=== PATIENT | male | born 1940 | race Caucasian/White ===

== ENCOUNTER 2017-10-05 09:43 | Emergency (ER) | payer MEDICARE, OTHER ==
[2017-10-05] MEDS ORDERED: Lidocaine 1% (PF) 30 ML VIAL ONE (11:52)
--- NOTE | 2017-10-05 12:12 | CT ---
CT CERVICAL SPINE PERFORMED WITHOUT CONTRAST ENHANCEMENT: Date: 10/05/17 HISTORY: Patient had a fall with neck pain. FINDINGS: The vertebral bodies are normal in height. There is marked disc narrowing present. 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 There is marked disc narrowing at C4-5 . There are degenerative facet changes present. There is no central canal stenosis noted. There is no CT evidence for fracture. Lung apices show scarring. Carotid bulb calcifications are noted. IMPRESSION: No CT evidence of fracture of the cervical spine. POS: [facility]
[2017-10-05] MEDS ORDERED: Amoxicillin/Potassium Clav 875 MG TAB ONE (12:47)
[2017-10-05] MEDS ORDERED: Acetaminophen 500 MG TAB ONE (12:47)
[2017-10-05] MEDS ORDERED: Adacel (T-DAP) 0.5 ML VIAL ONE (12:47)
[2017-10-05] MEDS ORDERED: traMADol HCl 50 MG TAB ONE (13:11)
[2017-10-05] MEDS ORDERED: Gabapentin 300 MG CAP PO SCH (13:30)
[2017-10-05] MEDS ORDERED: Bacitracin Zinc 1 Packet ONE (13:47)
== END 2017-10-05 14:31 | disposition home or self-care (01) ==
LOC: ERS 09:43
DX: S61.412A Laceration without foreign body of left hand, initial encounter (principal); S16.1XXA Strain of muscle, fascia and tendon at neck level, initial encounter; I10 Essential (primary) hypertension; F32.9 Major depressive disorder, single episode, unspecified; F17.290 Nicotine dependence, other tobacco product, uncomplicated; Z23 Encounter for immunization; W22.8XXA Striking against or struck by other objects, initial encounter
CPT/HCPCS: 12004; 72125; 90471; 90715; J2001

== ENCOUNTER 2018-07-02 16:34 | Observation (INO) | payer MEDICARE, OTHER ==
[~2018-07-02 16:34] MED LIST: ISOVUE-370 76%-LOCM 1 ML ONE
[2018-07-02 17:04] LABS: #Basophils 0.1 thou/uL (0.0-0.2); #Eosinphils 0.2 thou/uL (0.0-0.7); #Monocytes 0.6 thou/uL (0.11-0.59); #Neutrophils 3.9 thou/uL (1.40-6.50); %Basophils 1.3 % (0.0-1.0); %Eosinophils 3.4 % (0.0-10.0); %Lymphocytes 29.8 % (21.0-51.0); %Monocytes 8.2 % (0.0-10.0); %Neutrophils 57.3 % (42.0-75.0); Hemoglobin 15.3 g/dL (14.0-18.0); Mean Corpuscular HGB CONC 33.5 g/dL (32.0-36.0); Mean Corpuscular Hemoglobin 33.7 pg (27.0-31.0); Mean Platelet Volume 6.6 fL (7.4-10.4); Platelet Count 239 thou/uL (130-400); RBC Distribution Width 12.6 % (11.5-14.5); Red Blood Cell (RBC) Count 4.52 mill/uL (4.70-6.10); White Blood Cell (WBC) Count 6.8 thou/uL (4.8-10.8)
[2018-07-02] MEDS ORDERED: Acetaminophen 500 MG TAB ONE (17:06)
--- NOTE | 2018-07-02 17:17 | RAD ---
PORTABLE AP CHEST X-RAY 07/02/18 HISTORY: Shortness of breath. COMPARISON: 03/28/16. FINDINGS: The cardiac silhouette and pulmonary vasculature are within normal limits for the portable technique of the study. There are linear densities in the mid lung zones bilaterally which may be related to mi ld scarring and/or atelectasis. Remote right sided rib fractures are again seen. Vascular calcificati ons are seen in the thoracic aorta. Degenerative changes again noted in the spine. IMPRESSION: 1. Linear scar versus atelectasis in the mid lung zones bilaterally. There is otherwise no acute cardiopulmonary process. 2. Remote right sided rib fractures. POS: [facility]
[2018-07-02 17:28] LABS: ALT (SGPT) 13 U/L (8-55); AST (SGOT) 21 U/L (5-34); Albumin 3.6 g/dL (3.4-4.8); Alkaline Phosphatase 79 U/L (40-150); Anion Gap 13 mmol/L (10-20); BUN (Urea Nitrogen) 9 mg/dL (8.4-25.7); Bilirubin, Total 0.7 mg/dL (0.2-1.2); Calc. Creatinine Clearance 0 mL/min (70-130); Calcium 8.2 mg/dL (7.8-10.44); Carbon Dioxide 26 mmol/L (23-31); Chloride 107 mmol/L (98-107); Estimated GFR-MDRD 87; Globulin 2.7 g/dL (2.4-3.5); Glucose 122 mg/dL (83-110); Potassium 4.3 mmol/L (3.5-5.1); Protein, Total 6.3 g/dL (5.8-8.1); Sodium 142 mmol/L (136-145)
[2018-07-02] MEDS ORDERED: Ondansetron PF 4 MG/2 ML Vial ONE (18:32)
[2018-07-02] MEDS ORDERED: Ketorolac Tromethamine 30 MG/ML VIAL ONE (19:17)
--- NOTE | 2018-07-02 19:51 | CT ---
CT ANGIOGRAM THORAX WITH IV CONTRAST AND 3D RECONSTRUCTIONS: 07/02/18 HISTORY: Shortness of breath and chest pain. Chest tightness. Elevated blood pressure. COMPARISON: None available. FINDINGS: No filling defects are seen in the pulmonary arteries to suggest a pulmonary embolus. Atherosclerotic calcifications and plaque are seen within the thoracic aorta. There is no evidence of a thoracic aor tic dissection or aneurysm seen. There are small bilateral pleural effusions and associated atelectasis. Calcified biapical pleural an d parenchymal scarring is present. This was also seen on prior CT cervical spine on 10/05/17. There is partially calcified pleural thickening seen along the region of the minor fissure on the right. Ther e is also minimal pleural thickening along the major fissures bilaterally. No discrete noncalcified p ulmonary nodule or mass is identified. No enlarged lymph nodes are seen by CT size criteria. The hear t is mildly enlarged. A few subcentimeter too small to characterize hypodense lesions are seen in the left hepatic lobe sta ble from CT abdomen in 2015. Remainder of the upper abdomen demonstrates a normal CT appearance for arterial phase of imaging. Degenerative changes are noted in the thoracic spine. Remote right sided rib fractures are seen. IMPRESSION: 1. No CT evidence of a pulmonary embolus. 2. Atherosclerotic vascular disease involving the coronary arteries as well as the thoracic and visualized upper abdominal aorta. 3. Small bilateral pleural effusions and atelectasis. 4. Mild gynecomastia. POS: [facility]
[2018-07-02 20:18] LABS: Troponin I 0.014 ng/mL (< 0.028)
[2018-07-02] MEDS ORDERED: Senokot S 8.6-50 MG TAB PO PRN (20:47)
[2018-07-02 21:32] VITALS: BMI 27.6
[2018-07-02] MEDS: HYDROcodone/Acetaminophen 10/325 mg Tablet PO PRN (21:51)
[2018-07-02] MEDS: hydrALAZINE 20 MG/ML VIAL SLOW IVP PRN (21:52)
[2018-07-02] MEDS ORDERED: Prevnar 13-Val Conj/PF 0.5 ML SYRINGE IM ONE (22:00)
[2018-07-03] MEDS: cloNIDine 0.1 MG TAB PO PRN ×2 (00:44→08:29)
[2018-07-03] MEDS: ALPRAZolam 0.5 MG TAB PO PRN ×2 (00:44→16:32)
--- NOTE | 2018-07-03 02:22 | HP ---
PRIMARY CARE PHYSICIAN: Dr. Carey. CHIEF COMPLAINT: Shortness of breath with abrupt onset this morning, he reports when he was getting up from bed. The patient is a smoker. Initially, EMS reports that his p.o. saturations were 87% on room air. He was given a DuoNeb and they went up to 96%. The patient reports that he feels better. The patient denied any current shortness of breath when examined for admission, saturating 96% on room air. The patient with a pertinent past medical history of hypertension and a smoker. He does report some chronic neck pain. The patient and family report that he drinks about 2-3 beers per night, takes one hydrocodone at night for his neck pain. Denies any significant cardiac stroke risk factors or history. Denies any history of COPD or CHF. Did report some chest tightness. Denied any specific chest pain or palpitations. Based on symptoms and history, the patient will be admitted to the observation unit for further risk stratification. PAST MEDICAL HISTORY: Hypertension, chronic neck pain. 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 PSYCHIATRIC HISTORY: Depression. SOCIAL HISTORY: The patient drinks every day, 2-3 beers per day. He is a smoker, smokes cigars daily, 2-3 per day, was a cigarette smoker for the last 30 years. REVIEW OF SYSTEMS: CONSTITUTIONAL: Denies fever or chills. EYES: Denies eye changes or eye pain. ENT: Denies rhinorrhea or sore throat. CARDIOVASCULAR: Reports chest pressure earlier. Denies palpitations. RESPIRATORY: Denies cough. Does report shortness of breath. Reports chest tightness. GASTROINTESTINAL: Denies any abdominal pain, nausea, vomiting, diarrhea, or constipation. MUSCULOSKELETAL: Reports chronic neck pain. SKIN: Reports rash to trunk, legs that itches periodically. Reports he has had the rash for the last eight months. ENDOCRINE: Does report a history of hypothyroidism. Denies any change in symptoms. HEMO/LYMPHATIC: Negative review of systems. PSYCH: Does have a history of depression. Denies any SI or HI. Notes all other review of systems are negative unless mentioned in the HPI. PHYSICAL EXAMINATION: VITAL SIGNS: Blood pressure 187/94, pulse is 72, respirations are 20, temperature is 98.7, and O2 saturations are 96% on room air. CONSTITUTIONAL: The patient appears nontoxic, is in mild pain distress from his neck. He is alert and oriented to person, place, and time. HEENT: Head is atraumatic and normocephalic. Eyes, eyelids are normal to inspection. Pupils are equally round and reactive to light. Extraocular muscles are intact. ENT, mouth exam is normal. Mucous membranes are moist. NECK: Normal range of motion. Trachea is midline. RESPIRATORY/CHEST: Chest expansion is equal. Breath sounds are clear. CARDIOVASCULAR: Regular heart rate and rhythm. Heart sounds are normal. ABDOMEN: Nontender on palpation. Bowel sounds are heard x4. BACK: Normal inspection. No CVA tenderness. EXTREMITIES: Upper extremities, normal range of motion. Inspection is normal. Radial pulses are equal bilaterally. Lower extremities, normal inspection. Normal range of motion. Pedal pulses are equal bilaterally. No edema is noted. NEUROLOGIC: He is alert and oriented to person, place, and time. Speech is normal. No focal motor or sensory deficits are noted. SKIN: Some macular rash to trunk and legs. Blanches. LYMPHATIC: Normal. PSYCHIATRIC: The patient is oriented to person, place, and time. Normal affect. RADIOLOGY INTERPRETATION: Chest 1. X-ray, linear scar versus atelectasis in mid lung zones bilaterally, otherwise no acute cardiopulmonary process. 2. Remote right-sided rib fractures. CTA, no significant findings with PE. Significant arthrosclerotic CV disease. Small bilateral pleural effusions and atelectasis. Pleural scarring. EKG, sinus rhythm, beats per minute 68, no ectopics, possible inferior infarct, age indeterminate, minimal voltage criteria for LVH. PERTINENT LABORATORY DATA: White blood cell count is 6.8, hemoglobin 15.3, hematocrit 45.6, platelets 239. Sodium is 142, potassium 4.3, chloride 107, carbon dioxide 26, gap is 13, BUN is 9, creatinine 0.85, estimated GFR is 87, glucose 122, calcium 8.2. Liver enzymes are unremarkable. Ammonia is 31. Troponin x2 are undetectable. HOME MEDICATIONS: Include; 1. Celexa 40 mg p.o. daily. 2. Hydrocodone 10 mg/500 Tylenol 1 tab p.o. q.6 hours as needed. 3. Levothyroxine 50 mcg p.o. daily. 4. Metoprolol 25 mg p.o. b.i.d. ALLERGIES: TRAMADOL. ASSESSMENT AND PLAN: 1. Chest pressure with shortness of breath. We will trend troponins x3. We will order a stress test in the morning to help us risk stratify. We will check lipids. We will give the patient aspirin daily. We will add DuoNeb as needed p.r.n. 2. Hypertension. We will trend. We will continue home medications. We will add p.r.n. hydralazine as needed. 3. Depression. We will continue home medications. 4. Hypothyroidism. We will continue home medications. We will obtain TSH, free T3, T4. 5. Daily alcohol use. We will add p.r.n. Ativan as needed for potential withdrawal. 6. We will add deep venous thrombosis and gastrointestinal prophylaxis. 7. Hospital course will be dependent on clinical findings. Job ID: [id number]
[2018-07-03] MEDS: hydrALAZINE 20 MG/ML VIAL SLOW IVP PRN ×2 (02:24→12:51)
[2018-07-03 05:12] LABS: #Basophils 0.1 thou/uL (0.0-0.2); #Eosinphils 0.3 thou/uL (0.0-0.7); #Lymphocytes 2.3 thou/uL (1.20-3.40); #Monocytes 0.7 thou/uL (0.11-0.59); #Neutrophils 4.5 thou/uL (1.40-6.50); %Basophils 1.5 % (0.0-1.0); %Eosinophils 3.2 % (0.0-10.0); %Lymphocytes 29.5 % (21.0-51.0); %Monocytes 9.3 % (0.0-10.0); %Neutrophils 56.5 % (42.0-75.0); Hemoglobin 14.6 g/dL (14.0-18.0); Mean Corpuscular HGB CONC 32.6 g/dL (32.0-36.0); Mean Corpuscular Hemoglobin 33.1 pg (27.0-31.0); Mean Platelet Volume 6.9 fL (7.4-10.4); Platelet Count 211 thou/uL (130-400); RBC Distribution Width 12.7 % (11.5-14.5); Red Blood Cell (RBC) Count 4.42 mill/uL (4.70-6.10); White Blood Cell (WBC) Count 7.9 thou/uL (4.8-10.8)
[2018-07-03 05:35] LABS: ALT (SGPT) 10 U/L (8-55); AST (SGOT) 20 U/L (5-34); Albumin 3.2 g/dL (3.4-4.8); Alkaline Phosphatase 72 U/L (40-150); Anion Gap 11 mmol/L (10-20); BUN (Urea Nitrogen) 10 mg/dL (8.4-25.7); Bilirubin, Total 0.7 mg/dL (0.2-1.2); Calc. Creatinine Clearance 99 mL/min (70-130); Calcium 8.3 mg/dL (7.8-10.44); Carbon Dioxide 27 mmol/L (23-31); Chloride 104 mmol/L (98-107); Cholesterol 220 mg/dl (< 200 Desired); Estimated GFR-MDRD Greater than 90; Globulin 2.7 g/dL (2.4-3.5); Glucose 80 mg/dL (83-110); HDL Cholesterol 55 mg/dL (>60 Neg Risk); LDL Cholesterol, Calculated 149 mg/dL; Potassium 3.7 mmol/L (3.5-5.1); Protein, Total 5.9 g/dL (5.8-8.1); Sodium 138 mmol/L (136-145); Triglycerides 81 mg/dL (Less than 150)
[2018-07-03 05:52] LABS: Free T4 (Free Thyroxine) 0.84 ng/dL (0.70-1.48); Thyroid Stimulating Hormone 1.8724 uIU/mL (0.35-4.94)
[2018-07-03] MEDS ORDERED: Enoxaparin Sodium 40 MG/0.4 ML SYRINGE SC SCH (09:00)
[2018-07-03] MEDS ORDERED: ADENOSINE 60 MG/20 ML VIAL ONE (11:46)
[2018-07-03] MEDS ORDERED: Metoprolol Tartrate 25 MG TAB PO SCH ×3 (13:31→21:00)
--- NOTE | 2018-07-03 14:27 | NM ---
MYOCARDIAL PERFUSION STUDY: 07/03/2018 HISTORY: Chest pain and shortness of breath. RADIOPHARMACEUTICAL: Technetium 99m sestamibi 33 millicuries IV at stress. Technetium 99m sestamibi 10.5 millicuries IV at rest. FINDINGS: There is normal uptake in distribution of radiotracer seen throughout the left ventricular myocardium . No reversible defect is identified. Quantitative analysis shows no significant reversible defect. Gated images show normal ventricular wall motion and wall thickening. Calculated left ventricular ejection fraction is low normal at 52%. IMPRESSION: 1. Normal myocardial perfusion study without evidence of a reversible defect seen to suggest ischemi a. 2. Low normal left ventricular ejection fraction of 52%. POS: [facility]
[2018-07-03] MEDS ORDERED: Amlodipine 5 mg/Benazepril 10 mg CAP PO SCH (16:00)
[2018-07-03 16:10] VITALS: BP 183/86; TEMP 98.5
[2018-07-03] MEDS: HYDROcodone/Acetaminophen 10/325 mg Tablet PO PRN (16:31)
--- NOTE | 2018-07-04 00:24 | DIS ---
DATE OF ADMISSION: 07/02/2018 DATE OF DISCHARGE: 07/03/2018 ALLERGIES: TRAMADOL. CHIEF COMPLAINT: Chest pain and shortness of breath. FINAL DIAGNOSES: 1. Chest pain, resolved, acute coronary syndrome ruled out. Nuclear stress test negative for ischemia. 2. Shortness of breath and hypoxemia on arrival, resolved. 3. Accelerated hypertension. 4. Tobacco abuse. 5. Hyperlipidemia. 6. Hypothyroidism. 7. Alcohol abuse. LABORATORY RESULTS: White blood cell count 7.9, hemoglobin 14.6, and MCV 101. Chemistry; sodium 138, potassium 3.7, chloride 104, BUN 10, creatinine 0.8, and glucose is 80. Liver function enzymes all within normal limits. Bilirubin is 0.7, AST 20, ALT 10, and alkaline phosphatase 72. Troponin was negative x2. Total cholesterol is 220, triglycerides 81, LDL 149, HDL 55, free T4 0.84, free T3 2.13. TSH 1.87. IMAGING RESULTS: Chest x-ray shows linear scar versus atelectasis in the mid lung zones bilaterally. There is otherwise no acute cardiopulmonary process along with remote right-sided rib fractures. CTA showed no evidence of pulmonary embolus. Atherosclerotic vascular disease involving the coronary arteries as well as thoracic and visualized upper abdominal aorta. Small bilateral pleural effusions and atelectasis. Mild gynecomastia. CONSULTATIONS: None. HOSPITAL COURSE: The patient is a 77-year-old male with past medical history significant for hypertension, hyperlipidemia, and tobacco abuse, who presented to the ER with initial complaints of shortness of breath. This started the morning prior to his arrival when he was getting up out of bed. The daughter is at bedside and does provide some of the history as well. Apparently, the patient also experienced some chest pressure along with associated nausea and diaphoresis. Because of his symptoms, he presented to the ER for further workup and treatment. The patient is a known alcoholic, status post treatment and according to the patient, now drinks 2 to 3 beers per day. Imaging results as outlined above. The patient was admitted for ACS rule out and nuclear stress test. The patient's blood pressure since arrival has been in the 180s and 190s, however. He was initiated on new hypertensive therapy with Lotrel 5/10, and his blood pressure has trended down nicely. The patient has been resting comfortably. His only pain is for chronic neck pain, for which he takes hydrocodone at home. He currently denies any shortness of breath or chest pain. His cholesterol was elevated, this discussed with the patient and his daughter and we will start statin given his cardiac risk factors. PHYSICAL EXAMINATION: VITAL SIGNS: Most recent; blood pressure 150/74, pulse 64, respirations 20, and O2 saturation 96% on room air. GENERAL: This is an elderly male, resting comfortably in bed. He is alert and oriented, in no respiratory distress. HEENT: Atraumatic and normocephalic. Eye movement intact. Mucous membranes are moist. NECK: Supple. No JVD. No carotid bruits. Trachea is midline. RESPIRATORY: Regular respiratory rate and pattern, he has somewhat decreased vesicular breath sounds, but no rales, rhonchi, or wheezes. GI: Soft, positive bowel sounds. Nontender. PERIPHERAL VASCULAR: Both lower extremities are warm and well perfused. He has no edema. MUSCULOSKELETAL: No joint effusion or swelling. NEUROLOGIC: Alert and oriented x3. Cranial nerves 2 through 12 grossly intact. No focal deficits. CONDITION AT DISCHARGE: Stable. DISCHARGE MEDICATIONS: 1. Metoprolol tartrate 25 mg p.o. b.i.d. 2. Citalopram 40 mg p.o. daily. 3. Hydrocodone 10/500 one tablet p.o. q.6 hours. This is a home medication for him. 4. Levothyroxine 50 mcg one tablet p.o. daily. 5. Omeprazole 20 mg tablet one tablet p.o. daily. New medications; 1. Atorvastatin 20 mg tablet one tablet p.o. at bedtime. 2. Amlodipine/benazepril 5/10 mg capsules one capsule p.o. daily. DISCHARGE DISPOSITION: home. PLAN: Discussed tobacco and alcohol cessation with the patient and his family at length. As mentioned, we will initiate therapy for his hyperlipidemia with statin. He will continue new blood pressure medication regimen and monitor his blood pressure at home. He will maintain close followup with his primary care provider, Dr. Carey. Given the patient's risk factors for coronary artery disease, I have also recommended followup at some point with Cardiology, especially if his symptoms of chest pain were to return despite the negative stress test. All of the patient questions were answered to the patient's satisfaction. Job ID: [id number]
[2018-07-04] MEDS ORDERED: Amlodipine 5 mg/Benazepril 10 mg CAP PO SCH ×2 (09:00)
--- NOTE | 2018-07-04 12:04 | EKG ---
Test Reason : Blood Pressure : / mmHG Vent. Rate : 068 BPM Atrial Rate : 068 BPM P-R Int : 156 ms QRS Dur : 080 ms QT Int : 432 ms P-R-T Axes : 014 -09 008 degrees QTc Int : 459 ms Normal sinus rhythm Minimal voltage criteria for LVH, may be normal variant Inferior infarct , age undetermined Abnormal ECG Confirmed by ORVILLE GRIFFITH DO ([id number]), medical transcription editor JEAN CLAUDE SALAZAR ([id number]) on 07/04/2018 12:04:18 PM Referred By: Confirmed By:ORVILLE GRIFFITH DO
== END 2018-07-03 19:36 | disposition home or self-care (01) ==
LOC: ERS 16:34 → 2SW 19:33
PROVIDERS: ADMIT Emergency Medicine; ATTEND Emergency Medicine
DX: R07.89 Other chest pain (principal); R06.02 Shortness of breath; R09.02 Hypoxemia; I10 Essential (primary) hypertension; E78.5 Hyperlipidemia, unspecified; E03.9 Hypothyroidism, unspecified; F10.10 Alcohol abuse, uncomplicated; G89.29 Other chronic pain; M54.2 Cervicalgia; F17.290 Nicotine dependence, other tobacco product, uncomplicated; Z79.899 Other long term (current) drug therapy; Z88.5 Allergy status to narcotic agent; Z98.1 Arthrodesis status
CPT/HCPCS: 71045; 71275; 78452; 80053; 80061; 82140; 84439; 84481; 84484 ×2; 85025; 90670; 93005; 93017; 94760; 96374; 96375 ×2; 96376; 97139; 99285; A9500; G0009; G0378 ×2; 36415; 84443; 90471; J0153; J0360; J1885; J2405; Q9966

== ENCOUNTER 2018-07-10 13:58 | Emergency (ER) | payer MEDICARE, OTHER ==
[2018-07-10 14:48] LABS: #Basophils 0.1 thou/uL (0.0-0.2); #Eosinphils 0.1 thou/uL (0.0-0.7); #Lymphocytes 1.3 thou/uL (1.20-3.40); #Neutrophils 5.9 thou/uL (1.40-6.50); %Basophils 0.7 % (0.0-1.0); %Lymphocytes 15.2 % (21.0-51.0); %Neutrophils 71.2 % (42.0-75.0); Hemoglobin 15.8 g/dL (14.0-18.0); Mean Corpuscular HGB CONC 33.8 g/dL (32.0-36.0); Mean Corpuscular Hemoglobin 33.9 pg (27.0-31.0); Mean Platelet Volume 7.3 fL (7.4-10.4); Platelet Count 240 thou/uL (130-400); RBC Distribution Width 12.6 % (11.5-14.5); Red Blood Cell (RBC) Count 4.65 mill/uL (4.70-6.10); White Blood Cell (WBC) Count 8.3 thou/uL (4.8-10.8)
--- NOTE | 2018-07-10 15:22 | RAD ---
SINGLE VIEW CHEST: Date: 07/10/18 COMPARISON: 07/02/18. HISTORY: Shortness of breath and dyspnea. FINDINGS: Single view of the chest shows a normal sized cardiomediastinal silhouette. There is no evidence of c onsolidation, mass, or pleural effusion. There is a healed remote right rib fracture. Degenerative ch anges are seen in the spine and shoulders. IMPRESSION: No evidence of acute cardiopulmonary disease. POS: [facility]
[2018-07-10 15:35] LABS: ALT (SGPT) 13 U/L (8-55); AST (SGOT) 22 U/L (5-34); Albumin 3.7 g/dL (3.4-4.8); Alkaline Phosphatase 96 U/L (40-150); Anion Gap 15 mmol/L (10-20); BUN (Urea Nitrogen) 8 mg/dL (8.4-25.7); Calc. Creatinine Clearance 0 mL/min (70-130); Calcium 8.8 mg/dL (7.8-10.44); Carbon Dioxide 24 mmol/L (23-31); Chloride 102 mmol/L (98-107); Estimated GFR-MDRD 80; Globulin 2.8 g/dL (2.4-3.5); Glucose 108 mg/dL (83-110); Lipase 26 U/L (8-78); Potassium 3.8 mmol/L (3.5-5.1); Protein, Total 6.5 g/dL (5.8-8.1); Sodium 137 mmol/L (136-145)
[2018-07-10] MEDS ORDERED: Morphine 4 MG/ML VIAL ONE (15:38)
--- NOTE | 2018-07-10 16:34 | CT ---
CT OF THE ABDOMEN AND PELVIS WITH CONTRAST: COMPARISON: 07/22/2014. HISTORY: Abdominal pain that began 2 days ago with migration to the chest last night. TECHNIQUE: Multiple contiguous axial images were obtained in a CT of the abdomen and pelvis with contrast. Rickey nal reformats were performed. FINDINGS: There are stable hypodensities in the liver which are subcentimeter in size and too small to definite ly characterize but likely represent cysts. There are hypodensities in the kidneys measuring up to 2 .5 cm in size which likely represent cysts. The gallbladder, adrenal glands, spleen, and pancreas ar e unremarkable. No free air, free fluid, or stranding changes are seen in the abdomen or pelvis. The large and small bowel are unremarkable. No abdominal or pelvic lymphadenopathy are seen. Atherosclerotic calcifica tions are seen in the aorta. There are small bilateral pleural effusions with adjacent atelectasis. Degenerative changes are seen in the spine. The abdominal wall soft tissues are unremarkable. Degenerative changes are seen in t he hips, right greater than left. IMPRESSION: 1. No evidence of acute intraabdominal/pelvic abnormality. 2. Renal cysts. 3. Likely small hepatic cysts. POS: [facility]
== END 2018-07-10 17:16 | disposition home or self-care (01) ==
LOC: ERS 13:58
DX: R10.13 Epigastric pain (principal); I10 Essential (primary) hypertension; E78.5 Hyperlipidemia, unspecified; F32.9 Major depressive disorder, single episode, unspecified; F17.210 Nicotine dependence, cigarettes, uncomplicated; Z79.899 Other long term (current) drug therapy
CPT/HCPCS: 36415; 71045; 74177; 80053; 83605; 83690; 84484; 85025; 93005; 94760; 96374; J2270; Q9966

== ENCOUNTER 2018-08-15 17:22 | Emergency (ER) | payer MEDICARE, OTHER ==
[2018-08-15 18:33] LABS: #Basophils 0.1 thou/uL (0.0-0.2); #Eosinphils 0.5 thou/uL (0.0-0.7); #Lymphocytes 2.9 thou/uL (1.20-3.40); #Monocytes 0.6 thou/uL (0.11-0.59); #Neutrophils 3.7 thou/uL (1.40-6.50); %Basophils 1.3 % (0.0-1.0); %Eosinophils 6.2 % (0.0-10.0); %Lymphocytes 37.6 % (21.0-51.0); %Monocytes 7.9 % (0.0-10.0); Hemoglobin 13.4 g/dL (14.0-18.0); Mean Corpuscular Hemoglobin 34.2 pg (27.0-31.0); Mean Platelet Volume 6.5 fL (7.4-10.4); Platelet Count 241 thou/uL (130-400); Red Blood Cell (RBC) Count 3.91 mill/uL (4.70-6.10); White Blood Cell (WBC) Count 7.8 thou/uL (4.8-10.8)
[2018-08-15 18:38] LABS: PTT 27.8 SEC (22.9-36.1); Prothrombin Time 12.8 SEC (12.0-14.7)
[2018-08-15 18:47] LABS: ALT (SGPT) 12 U/L (8-55); AST (SGOT) 23 U/L (5-34); Albumin 3.3 g/dL (3.4-4.8); Alkaline Phosphatase 85 U/L (40-150); Anion Gap 16 mmol/L (10-20); BUN (Urea Nitrogen) 8 mg/dL (8.4-25.7); Bilirubin, Total 0.3 mg/dL (0.2-1.2); CK (CPK) 85 U/L (30-200); Calc. Creatinine Clearance 0 mL/min (70-130); Calcium 7.6 mg/dL (7.8-10.44); Carbon Dioxide 18 mmol/L (23-31); Chloride 101 mmol/L (98-107); Estimated GFR-MDRD 61; Globulin 2.5 g/dL (2.4-3.5); Glucose 104 mg/dL (83-110); Protein, Total 5.8 g/dL (5.8-8.1); Sodium 132 mmol/L (136-145)
[2018-08-15 18:49] LABS: Acetaminophen Less than 6.0 mcg/mL (10.0-30.0); Alcohol 252 mg/dL (Less than 10); Salicylate Less than 8.0 mg/dL (15.0-30.0)
--- NOTE | 2018-08-15 18:49 | CT ---
CT BRAIN WITHOUT CONTRAST: 08/15/18 HISTORY: Level II stroke, confusion, slurred speech, altered mental status, hypertension, alcohol abuse. FINDINGS: No evidence of acute infarct, hemorrhage, midline shift or abnormal extra-axial fluid collections are seen. The ventricular size is appropriate and the basilar cisterns are patent. The bony calvarium is intact. There is mucosa disease in the paranasal sinuses. IMPRESSION: No CT evidence of acute intracranial process. Discussed over the telephone with ER physician, Dr. Johansen at 6:44 p.m. POS: [facility]
--- NOTE | 2018-08-15 18:50 | RAD ---
XR Chest 1 View Portable HISTORY: Altered mental status, hypotension COMPARISON: 07/10/2018 FINDINGS: The heart size is normal. The lungs are well expanded without focal areas of consolidation, pneumothorax or pleural effusions. Old right-sided rib fractures again seen IMPRESSION: No radiographic evidence of acute cardiopulmonary process.
[2018-08-15 18:52] LABS: Potassium 2.8 mmol/L (3.5-5.1)
[2018-08-15] MEDS ORDERED: Potassium Chloride 20 MEQ/100 ML PREMIX BAG ONE (19:20)
[2018-08-15] MEDS ORDERED: Potassium Chloride 10 MEQ in Premix Bag 1 BAG IVPB SCH (19:30)
== END 2018-08-15 20:52 | disposition home or self-care (01) ==
LOC: ERS 17:22
DX: F10.129 Alcohol abuse with intoxication, unspecified (principal); E87.6 Hypokalemia; I11.0 Hypertensive heart disease with heart failure; I50.9 Heart failure, unspecified; E78.5 Hyperlipidemia, unspecified; J44.9 Chronic obstructive pulmonary disease, unspecified; F32.9 Major depressive disorder, single episode, unspecified; F17.290 Nicotine dependence, other tobacco product, uncomplicated; Z79.899 Other long term (current) drug therapy; Y90.8 Blood alcohol level of 240 mg/100 ml or more
CPT/HCPCS: 36415; 36416; 70450; 71045; 80053; 80307; 82550; 84484; 85025; 85610; 85730; 93005; 94760; 96365; J3480

== ENCOUNTER 2019-02-13 12:48 | Inpatient (IN) | payer MEDICARE, OTHER ==
[2019-02-13] MEDS ORDERED: Piperacillin/Tazobactam 4.5 GM VIAL ONE (13:26)
[2019-02-13] MEDS ORDERED: Acetaminophen 500 MG TAB ONE (13:26)
--- NOTE | 2019-02-13 13:39 | RAD ---
PORTABLE CHEST 1 VIEW: Date: 02/13/19 Time: 1314 hours HISTORY: Difficulty breathing. FINDINGS: Comparison made with exam of 08/15/18. The heart size is normal. The aorta is tortuous. Old right-sided rib fractures again seen. The lungs are well expanded without lobar consolidation, pneumothoraces, or pleural effusions. There are degene rative changes in the shoulder joints. IMPRESSION: No acute process. POS: [facility]
[2019-02-13 13:52] LABS: #Basophils 0.1 thou/uL (0.0-0.2); #Eosinphils 0.1 thou/uL (0.0-0.7); #Lymphocytes 2.4 thou/uL (1.20-3.40); #Neutrophils 8.4 thou/uL (1.40-6.50); %Basophils 0.7 % (0.0-1.0); %Eosinophils 1.1 % (0.0-10.0); %Lymphocytes 20.2 % (21.0-51.0); %Monocytes 8.5 % (0.0-10.0); %Neutrophils 69.6 % (42.0-75.0); Mean Corpuscular HGB CONC 34.7 g/dL (32.0-36.0); Mean Platelet Volume 6.3 fL (7.4-10.4); Platelet Count 211 thou/uL (130-400); RBC Distribution Width 12.2 % (11.5-14.5); Red Blood Cell (RBC) Count 4.12 mill/uL (4.70-6.10); White Blood Cell (WBC) Count 12.1 thou/uL (4.8-10.8)
[2019-02-13 14:11] LABS: ALT (SGPT) 27 U/L (8-55); AST (SGOT) 30 U/L (5-34); Albumin 3.9 g/dL (3.4-4.8); Alcohol Less than 10 mg/dL (Less than 10); Alkaline Phosphatase 84 U/L (40-110); Anion Gap 14 mmol/L (10-20); BUN (Urea Nitrogen) 16 mg/dL (8.4-25.7); Bilirubin, Total 0.9 mg/dL (0.2-1.2); Calc. Creatinine Clearance 0 mL/min (70-130); Calcium 8.8 mg/dL (7.8-10.44); Carbon Dioxide 21 mmol/L (23-31); Chloride 100 mmol/L (98-107); Estimated GFR-MDRD 43; Globulin 3.3 g/dL (2.4-3.5); Glucose 96 mg/dL (83-110); Potassium 5.4 mmol/L (3.5-5.1); Protein, Total 7.2 g/dL (5.8-8.1); Sodium 130 mmol/L (136-145)
--- NOTE | 2019-02-13 14:41 | RAD ---
AP PELVIS: Date: 02/13/19 HISTORY: Trauma. Pelvic pain. Hip pain. FINDINGS/IMPRESSION: Degenerative changes are seen in the hip joints and the lower lumbar spine. No acute fracture or disl ocation is identified. POS: [facility]
--- NOTE | 2019-02-13 14:42 | RAD ---
LEFT HAND 3 VIEWS: Date: 02/13/19 HISTORY: Trauma, left hand pain. FINDINGS/IMPRESSION: Degenerative changes are noted. There is an old fracture of the ulnar styloid. No acute fracture or d islocation is identified. POS: [facility]
[2019-02-13] MEDS ORDERED: Adacel (T-DAP) 0.5 ML SYRINGE ONE (14:44)
--- NOTE | 2019-02-13 14:50 | CT ---
CT BRAIN WITHOUT CONTRAST: Date: 02/13/19 HISTORY: Trauma. Headache. Neck pain. FINDINGS: Comparison made with exam of 08/15/18. No evidence of acute infarct, hemorrhage, midline shift, or abnormal extra-axial fluid collections ar e seen. The ventricular size is stable and the basilar cisterns are patent. The bony calvarium is int act. There is mucosal disease in the paranasal sinuses. There is soft tissue swelling in the left per iorbital region. IMPRESSION: No CT evidence of acute intracranial process. POS: [facility]
--- NOTE | 2019-02-13 14:59 | CT ---
CT CERVICAL SPINE WITH CORONAL AND SAGITTAL REFORMATIONS: Date: 02/13/19 HISTORY: Fall, neck pain. FINDINGS/IMPRESSION: Comparison made with exam of 10/05/17. Degenerative changes are again seen. 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 No acute fracture or subluxation or facet malalignment is identified. POS: [facility]
--- NOTE | 2019-02-13 15:06 | CT ---
CT FACIAL BONES WITH CORONAL AND SAGITTAL REFORMATIONS: Date: 02/13/19 HISTORY: Fall. Facial pain and burning. FINDINGS: The facial bones are intact. No temporomandibular dislocation is seen. No air fluid levels are noted in the paranasal sinuses. Mucosal disease is seen in the paranasal sinuses. There is left periorbital soft tissue swelling. No retrobulbar hematoma or proptosis is noted on either side. IMPRESSION: No CT evidence of acute facial bone fracture. POS: [facility]
[2019-02-13] MEDS ORDERED: Ondansetron ODT 4 MG TAB ONE (15:24)
[2019-02-13] MEDS ORDERED: Lidocaine 1% (PF) 30 ML VIAL ONE (15:36)
[2019-02-13] MEDS ORDERED: HYDROcodone/Acetaminophen 5/325 mg Tablet ONE (16:13)
[2019-02-13] MEDS ORDERED: Fluorescein Opthalmic Strip ONE (16:13)
[2019-02-13] MEDS ORDERED: Bacitracin 1 PK ONE (17:14)
[2019-02-13] MEDS ORDERED: Erythromycin Base 0.5% Oint 1 GM TUBE L EYE SCH (17:30)
[2019-02-13 18:04] LABS: Bilirubin Negative (Negative); Blood, Urine Negative (Negative); Clarity Clear (Clear); Glucose, Urine (Dipstick) Normal (Negative); Leukocyte Negative Leu/uL (Negative); Nitrite Negative (Negative); Protein, Urine (Dipstick) Negative (Neg-Trace); Urobilinogen Normal mg/dL (Less than 2)
[2019-02-13 18:19] LABS: Amphetamine Not Detected (NotDetected); Barbiturates Screen Not Detected (NotDetected); Benzodiazepine Screen Not Detected (NotDetected); Cocaine Metabolite Screen Not Detected (NotDetected); Medtox Control Line Valid? VALID (VALID); Medtox Reader # READER 4; Methadone Not Detected (NotDetected); Methamphetamine Not Detected (NotDetected); Opiate Screen Detected (NotDetected); Oxycodone Screen Not Detected (NotDetected); Phencyclidine (PCP) Not Detected (NotDetected); THC/Cannabinoid Screen Not Detected (NotDetected); Tricyclic Screen Not Detected (NotDetected)
--- NOTE | 2019-02-13 20:01 | CON ---
DATE OF CONSULTATION: 02/13/2019 REQUESTING CONSULTATION: By Medicine Service. HISTORY OF PRESENT ILLNESS: The patient is a 78-year-old man, who was brought to the emergency department this morning after reportedly having a fall sometime last night. The patient reports that he was slightly intoxicated while he was cooking around sometime after midnight. He was boiling some water, the patient does not recall what happened afterwards, but woke up this morning, had a scalp laceration and warner to his left side of his face and a laceration to his thumb. He was able to call his daughter who had him call 911. He was brought by ground ambulance to the emergency department where he underwent evaluation and examination and was noted to have a small scalp laceration, a laceration to his left thumb, and superficial first and second-degree warner to the left side of his face. We were asked to evaluate his facial warner prior to his admission to the Medicine Service for electrolyte abnormalities and what sounds like a syncopal workup. The patient currently denies any shortness of breath. He has vision out of his left eye even with the amount of swelling around it. ER physician reports that he was able to do a fluorescein stain on the patient's eye and did not see any abrasions, ulcerations, or any other injuries. ALLERGIES: TRAMADOL. CURRENT MEDICATIONS: Citalopram, pravastatin, amlodipine, spironolactone, levothyroxine, metoprolol, hydroxyzine, hydrocodone 10 mg. PAST MEDICAL HISTORY: Hypertension, hyperlipidemia, CHF, depression, COPD. PAST SURGICAL HISTORY: Cervicals spine fusion, bone spur removal, and appendectomy. SOCIAL HISTORY: The patient lives at home alone. He is a retired rail worker. He reports that he drinks "a few drinks per day" per his daughter at bedside, she believes that he actually drinks more than this. The patient smokes cigars currently and formerly smoked cigarettes, stopped 2-3 years ago, but has a greater than 30-year smoking history. REVIEW OF SYSTEMS: 10-point review of systems is negative as otherwise stated. PHYSICAL EXAMINATION: VITAL SIGNS: Blood pressure 143/80, heart rate 87, respirations 23, oxygen saturation 97% on 3 L via nasal cannula, and temperature is 97.8. GENERAL: The patient is resting comfortably in bed. He is awake, alert, and oriented. [place] Coma Scale is 15. He does not recall the details around his fall or how he sustained his injuries, but is able to tell me that he has had previous episodes of dizziness, but he was unable to tell me if this is related to a change in his blood pressure medicines. HEENT: Head is normocephalic with a small laceration on the occiput that has been repaired with demar. Face; the left side of his face to include the forehead and down to the chin has redness, erythema, and a small area of un-crusted blisters that currently are covered with bacitracin. He does have swelling to the left ear that does not appear to include the canal. Eyes, extraocular motion intact. PERRLA bilaterally. The patient does have difficulty due to swelling of his perioral area, but again the fluorescein stain was unremarkable. Eyebrows do not show any singeing. The patient's facial hairs do not appear to have any singeing. Ears, no carbonaceous sputum. The oral airway is clear. Nostrils are clear. Voice is clear. NECK: Nontender. Trachea is midline. No JVD. CHEST: Clear to auscultation with good inspiratory and expiratory effort. HEART: Regular rate and rhythm. ABDOMEN: Soft, flat, nontender with active bowel sounds. EXTREMITIES: Neurovascularly intact x4. Laceration with 3 sutures noted to the dorsum of the thumb on left hand. BACK: Atraumatic and nontender. LABORATORY FINDINGS: White blood cell count 12.1, hemoglobin 14.0, hematocrit 40.4, platelets 211. Sodium 130, potassium 5.4, chloride 100, CO2 of 21, BUN 16, creatinine 1.56, glucose 96. LFTs are unremarkable. Troponin is less than 0.010. TSH is 1.25. Urinalysis is unremarkable. Urine drug screen is positive for opiates and blood alcohol is less than 10. RADIOGRAPHIC FINDINGS: CT of the brain without contrast shows no CT evidence of acute findings. CT of the facial bones without contrast showed no acute evidence of fracture. CT of the C-spine without contrast shows no acute fracture subluxation or facet malalignment. AP chest x-ray shows no acute process. AP pelvis shows no acute findings. Views of the left hand shows no acute fracture or dislocation. ASSESSMENT: 1. Status post fall with remote presentation. 2. Superficial first and second-degree burn to the left side of face and ear. 3. Hyponatremia. 4. Hyperkalemia. 5. Likely syncopal episode. PLAN: Plan will be to have the Medicine Service admit the patient for his evaluation regarding his warner and the patient will have Wound Care Team look at it, will cover with bacitracin. The patient's tetanus is up to date. The wounds do not involve the ear canal or deep structures and do not involve the eye. We are able to care for this patient here. We will follow up with him tomorrow. Job ID: [id number]
[2019-02-13] MEDS ORDERED: HYDROcodone/Acetaminophen 5/325 mg Tablet PO SCH (21:04)
[2019-02-13] MEDS ORDERED: Lorazepam 1 MG TAB PO PRN (22:55)
[2019-02-13] MEDS ORDERED: Multivit, Therapeutic 1 TAB PO SCH (23:00)
[2019-02-13] MEDS ORDERED: Thiamine 100 MG TAB PO SCH ×2 (23:00→23:15)
[2019-02-13] MEDS ORDERED: Folic Acid 1 MG TAB PO SCH ×2 (23:00→23:15)
[2019-02-13] MEDS ORDERED: Labetalol HCl 100 MG/20 ML VIAL SLOW IVP PRN (23:02)
[2019-02-13] MEDS ORDERED: Artificial Tears 18 DROP/0.9 ML EA EYE PRN (23:05)
[2019-02-13] MEDS ORDERED: SYSTANE 3.5 GM TUBE EA EYE PRN (23:06)
[2019-02-13] MEDS: Sodium Chloride 0.9% 1,000 ML IV SCH (23:38)
[2019-02-13] MEDS: Bacitracin Zinc Ointment 30 gm TUBE TOP SCH (23:39)
[2019-02-14] MEDS ORDERED: Nitroglycerin 0.4 MG TAB (25 Tab Bottle) PO PRN (01:53)
[2019-02-14] MEDS ORDERED: Acetaminophen 325 MG TAB PO PRN (01:55)
[2019-02-14] MEDS ORDERED: Calcium Carbonate 500 MG ChewTAB PO PRN (01:55)
--- NOTE | 2019-02-14 02:27 | HP ---
The patient was seen and examined on February 13, 2019. PRIMARY HEAD OF BIOLOGY: Dr. Carey. CHIEF COMPLAINT: Syncopal episode. HISTORY OF PRESENT ILLNESS: The patient is a 78-year-old male with hypertension , hyperlipidemia, congestive heart failure, and chronic alcoholism, presented to the hospital after a syncopal episode. Around 2:30 a.m., patient had a syncopal episode. He contacted his family 10 hours later when he resumed consciousness. He was in the kitchen cooking when he had the syncopal episode. He is able to recall the event even before the episode. He denies any chest pain, palpitations, lightheadedness, dizziness, or focal neurologic deficit. No tongue biting or incontinence reported. He landed on the face and his left arm. He suffered facial warner from boiling hot water. He presented to the emergency room around 1 p.m. (approximately 11 hours later). Over the last several weeks, he has been complaining of dizziness. PAST MEDICAL HISTORY: 1. Hypertension. 2. Hyperlipidemia. 3. COPD. 4. Congestive heart failure. 5. Chronic alcoholism. 6. Chronic pain syndrome. 7. Depression. The patient denies any current suicidal ideation. PAST SURGICAL HISTORY: 1. Chronic low back pain requiring surgical intervention. 2. Appendectomy. 3. Bone spur removal. ALLERGIES: THE PATIENT IS ALLERGIC TO TRAMADOL. CURRENT HOME MEDICATIONS: 1. Celexa 40 mg daily. 2. [place] 10/325 mg b.i.d. 3. Atarax 10 mg nightly. 4. Levothyroxine 50 mcg daily. 5. Lopressor 25 mg b.i.d. 6. Pravastatin 40 mg at bedtime. 7. Aldactone 25 mg daily. 8. Amlodipine/benazepril 5/10 daily. SOCIAL HISTORY: Currently lives at home. He drinks up to 2-3 beers on a daily basis. He occasionally consumes liquor. He also smokes cigar on a daily basis. He has quit alcohol in the past. However, after his 7 years ago, he restarted. FAMILY HISTORY: Negative for premature coronary artery disease. REVIEW OF SYSTEMS: All other review of systems were reviewed and were found negative. PHYSICAL EXAMINATION: VITAL SIGNS: Temperature 98.6, respirations 17, pulse of 74, blood pressure 127 /72, and O2 saturation of 92% on room air. GENERAL: A 78-year-old male, in no apparent distress. Denies any chest discomfort at this time. HEENT: Head, atraumatic and normocephalic. Sclerae anicteric. There is laceration over the occipital area along with warner on the left face. NECK: Supple. No JVD. No carotid bruit. LUNGS: Clear to auscultation bilaterally. No wheezing, rales, or rhonchi. HEART: S1, S2 present. Regular rate and rhythm. No rubs or gallops. ABDOMEN: Soft, nontender. Bowel sounds present. EXTREMITIES: No edema or calf tenderness. NEUROLOGY: Grossly nonfocal. Moves all 4 extremities. [id number] test was normal. Power was 5/5 in all extremities. PSYCHIATRY: Alert, awake and oriented x3. Normal affect. SKIN: Warm and dry. LYMPH NODES: No palpable lymph nodes in the neck. PERIPHERAL VASCULAR: Radial pulses palpable bilaterally. MUSCULOSKELETAL: No joint swelling or tenderness. LABORATORY FINDINGS: Alcohol level less than 10. Urinalysis was negative for wbc, bacteria. Troponin was negative. TSH 1.2. Sodium 130, potassium 5.4 with creatinine 1.56. His baseline creatinine is around 1. WBC 12.1 without significant left shift. EKG by my review showed sinus rhythm with nonspecific ST-T wave changes in the inferior lead. Chest x-ray by my review was negative for infiltrate or edema. Facial bones CT scan was negative for fracture. Cervical spine CT was negative for acute fractures or dislocation. 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 CT scan of the brain by my review was negative for acute findings. Pelvis x-ray was negative for fractures. Hand x-ray was negative for new fractures. IMPRESSION: 1. Syncopal episode of unclear etiology. Possibilities include cardiogenic versus alcohol intoxication. Seizures appears to be less likely. Hypotension is another possibility. He also has significant left facial warner. 2. Acute kidney injury on chronic kidney disease stage 2 with hyperkalemia and hyponatremia. 3. Leukocytosis, unlikely to be infectious. 4. Chronic alcohol dependence. 5. Depression without any suicidal ideation. 6. Hypertension. 7. Hyperlipidemia. 8. Chronic obstructive pulmonary disease. 9. History of congestive heart failure, ejection fraction unknown. His Cardiolite stress test in June of this year showed normal left ventricular ejection fraction. 10. Chronic pain syndrome. 11. Hyperlipidemia. PLAN: The patient will be monitored on the telemetry unit. We will check orthostatic vitals. Alcohol cessation was emphasized. We will start him on thiamine, folic acid and multivitamin. We will also start him on alcohol withdrawal protocol. We will hold benazepril and Aldactone due to acute kidney injury. We will start him on IV hydration. Resume amlodipine and metoprolol. Echocardiogram and carotid Doppler will be obtained. Cardiology will be consulted. The patient will probably require event monitor. We will recheck labs in 24 hours. General surgery has already evaluated the patient. Plan of care was discussed with the patient in detail. He stated understanding. Code status; full code. Surrogate decision maker; the patient makes his own decision with the help of his family. Job ID: [id number] MTDD
[2019-02-14] MEDS: HYDROcodone/Acetaminophen 5/325 mg Tablet PO PRN ×4 (02:56→19:44)
[2019-02-14] MEDS: Levothyroxine Sodium 50 MCG TAB PO SCH (02:57)
[2019-02-14 06:11] LABS: #Basophils 0.1 thou/uL (0.0-0.2); #Eosinphils 0.1 thou/uL (0.0-0.7); #Lymphocytes 2.4 thou/uL (1.20-3.40); #Neutrophils 6.5 thou/uL (1.40-6.50); %Basophils 0.8 % (0.0-1.0); %Eosinophils 1.2 % (0.0-10.0); %Monocytes 9.5 % (0.0-10.0); %Neutrophils 64.5 % (42.0-75.0); Hemoglobin 12.9 g/dL (14.0-18.0); Mean Corpuscular HGB CONC 33.9 g/dL (32.0-36.0); Mean Corpuscular Hemoglobin 33.3 pg (27.0-31.0); Mean Corpuscular Volume 98.2 fL (78.0-98.0); Mean Platelet Volume 6.6 fL (7.4-10.4); Platelet Count 186 thou/uL (130-400); RBC Distribution Width 12.4 % (11.5-14.5); Red Blood Cell (RBC) Count 3.87 mill/uL (4.70-6.10); White Blood Cell (WBC) Count 10.1 thou/uL (4.8-10.8)
[2019-02-14 06:31] LABS: ALT (SGPT) 21 U/L (8-55); AST (SGOT) 22 U/L (5-34); Albumin 3.5 g/dL (3.4-4.8); Alkaline Phosphatase 82 U/L (40-110); Anion Gap 13 mmol/L (10-20); BUN (Urea Nitrogen) 14 mg/dL (8.4-25.7); Bilirubin, Total 1.2 mg/dL (0.2-1.2); Calc. Creatinine Clearance 56 mL/min (70-130); Calcium 8.6 mg/dL (7.8-10.44); Carbon Dioxide 19 mmol/L (23-31); Chloride 104 mmol/L (98-107); Estimated GFR-MDRD 53; Globulin 2.9 g/dL (2.4-3.5); Glucose 90 mg/dL (83-110); Magnesium 1.7 mg/dL (1.6-2.6); Phosphorus 3.9 mg/dL (2.3-4.7); Potassium 4.3 mmol/L (3.5-5.1); Protein, Total 6.4 g/dL (5.8-8.1); Sodium 132 mmol/L (136-145)
[2019-02-14] MEDS ORDERED: Cyanocobalamin 1000 MCG/ML VIAL IM SCH (07:00)
[2019-02-14] MEDS: Sodium Chloride 0.9% 1,000 ML IV SCH ×2 (08:10→17:22)
[2019-02-14] MEDS: Bacitracin Zinc Ointment 30 gm TUBE TOP SCH ×2 (09:40→22:20)
[2019-02-14] MEDS: Aspirin 81 mg Enteric Coated Tablet PO SCH (09:40)
[2019-02-14] MEDS: Famotidine 20 MG TAB PO SCH (09:41)
[2019-02-14] MEDS: Cyanocobalamin (Vitamin B-12) 1,000 MCG TAB PO SCH (09:41)
[2019-02-14] MEDS: Citalopram 20 MG TAB PO SCH (09:41)
[2019-02-14] MEDS: Senokot S 8.6-50 MG TAB PO SCH ×2 (09:42→19:43)
[2019-02-14] MEDS: Folic Acid 1 MG TAB PO SCH (09:42)
[2019-02-14] MEDS: Thiamine 100 MG TAB PO SCH (09:42)
[2019-02-14] MEDS: Multivit, Therapeutic 1 TAB PO SCH (09:42)
--- NOTE | 2019-02-14 10:07 | ULT ---
BILATERAL CAROTID DUPLEX ULTRASOUND: DATE: 02/14/19 HISTORY: Syncope. TECHNIQUE: Onofre scale ultrasound with color flow and spectral Doppler imaging of the extracranial carotid artery systems performed bilaterally. FINDINGS: There is plaque formation on both sides. The peak systolic velocity in the right ICA measures 68 cm/second with an end-diastolic velocity of 1 6 cm/second and a systolic ratio of 0.75. The peak systolic velocity in the left ICA measures 162 cm/second with an end-diastolic velocity of 2 4 cm/second and a systolic ratio of 1.95. Flow in both vertebral arteries remains antegrade. IMPRESSION: Moderate (50-69%) stenosis involving the left ICA. POS: [facility]
[2019-02-14] MEDS ORDERED: ISOVUE-370 76%-LOCM 1 ML ONE (12:14)
[2019-02-14] MEDS: Metoprolol Tartrate 25 MG TAB PO SCH (14:16)
[2019-02-14] MEDS: Amlodipine 5 MG TAB PO SCH (14:16)
--- NOTE | 2019-02-14 17:45 | CT ---
CT ANGIOGRAM OF THE NECK: HISTORY: Previous three neck surgeries. Carotid ultrasound showed left ICA stenosis. Comparison: None Correlation: Carotid ultrasound 02/14/2019 at 4:24 AM TECHNIQUE: CT angiogram of the neck is performed in the axial plane. Three-dimensional reformatted im ages are submitted for interpretation. FINDINGS: Postcontrast head CT: Visualized brain parenchyma does not demonstrate any pathologic enhancement. Orbits: Visualized orbits are unremarkable. Sinuses: Mild mucosal thickening of the ethmoid air cells. Aerodigestive tract: No obvious mucosal abnormality. Midline fatty raphae of the tongue is preserved. Epiglottis has a normal caliber. Preepiglottic fat is preserved. The supraglottic, glottic and subglottic larynx are patent. Salivary glands: Symmetric attenuation of the parotid and submandibular glands. Thyroid gland: Grossly unremarkable. Lymphadenopathy: Upper normal right level II lymph node measuring 1.3 x 0.6 cm. Upper normal left lev el 2 lymph node measuring 1.3 x 0.5 cm. Symmetric attenuation paraspinal muscles. Cervical spine: There is fusion of the cervical spine from C5 through C7. Varying degrees of central canal stenosis and neural foraminal narrowing. Straightening of normal cervical lordosis presumably due to surgical change. Nonspecific subcutaneous fat stranding involving the left face, left suprahyoid neck and the anterior aspect of the left and right neck inferior to the hyoid bone. There is mild thickening the platysmas. Findings are nonspecific. Upper mediastinum lung apices demonstrate dependent atelectatic changes in the lung parenchyma. No ob vious mediastinal abnormality. CT ANGIOGRAM: Visualized aorta demonstrates atherosclerosis. Right carotid: The right carotid artery origin has appropriate enhancement and luminal diameter. Ther e is mild atherosclerotic narrowing involving the distal innominate artery. The right common carotid artery, carotid bifurcation and internal carotid artery of appropriate enhancement and lumina l diameter. No significant stenosis based upon NASCET criteria. Minimal calcified plaque in the right carotid bifurcation and proximal internal carotid artery. Left carotid: Left carotid artery origin has appropriate enhancement and luminal diameter. The left c ommon carotid artery has appropriate enhancement and luminal diameter. There is atherosclerosis with a combination of calcified and noncalcified plaque involving the left carotid bifurcation and pr oximal internal carotid artery. Based on NASCET criteria there is approximately 76% stenosis. Subclavian arteries: Unremarkable. Cervical vertebral arteries: Codominant. No significant stenosis. Visualized CT angiogram of the head: Grossly unremarkable. IMPRESSION: 1. Short segment severe stenosis involving the left carotid bifurcation and proximal internal carotid artery. 2. Nonspecific soft tissue neck subcutaneous fat stranding. Transcribed Date/Time: 02/14/2019 6:11 PM
[2019-02-14] MEDS: Pravastatin Sodium 40 MG TAB PO SCH (19:44)
--- NOTE | 2019-02-14 20:11 | PDOC.HOSPP ---
- Subjective Encounter Date: 02/14/19 Encounter Time: 19:45 Subjective: f/u s/p syncope and facial trauma with associated thermal burn. Feels sore today and less facial swelling. Daughter reports hx of falls and unsteadiness at home. Concerned about mobility, living alone and hallucinations. - Objective Vital Signs & Weight: Vital Signs (12 hours) Temp Pulse Pulse Pulse Pulse Pulse Pulse 02/14/19 19:25 98.8 F 79 02/14/19 15:25 99 F 95 02/14/19 11:15 97.9 F 82 02/14/19 08:59 79 87 87 95 90 Pulse Pulse Resp BP BP BP BP 02/14/19 19:25 18 02/14/19 15:25 16 02/14/19 11:15 16 02/14/19 08:59 92 80 152/73 H 127/71 136/79 103/57 L BP BP BP BP BP BP BP 02/14/19 19:25 148/74 H 02/14/19 15:25 113/64 95/54 L 136/73 02/14/19 11:15 141/71 H 02/14/19 08:59 131/62 94/52 L 157/82 H Pulse Ox 02/14/19 19:25 94 L 02/14/19 15:25 93 L 02/14/19 11:15 94 L 02/14/19 08:59 Weight Weight 190 lb 6.4 oz I&O: 02/13/19 02/14/19 02/15/19 06:59 06:59 06:59 Intake Total 1312.5 Output Total 1225 380 Balance -1225 932.5 Result Diagrams: 02/14/19 05:49 02/14/19 05:49 Additional Labs: Microbiology 02/13/19 15:14 Nasal swab Influenza Types A,B Direct EIA - Final 02/13/19 17:55 Urine voided Urine Culture - Preliminary NO GROWTH AT 12 HOURS Laboratory Tests 02/13/19 02/13/19 02/13/19 13:40 13:40 13:40 WBC 12.1 H Hgb 14.0 Sodium 130 L Potassium 5.4 H Creatinine 1.56 H Vitamin B12 Folate TSH 3rd Generation 1.2547 Urine Opiates Screen Plasma Alcohol Less than 10 02/13/19 02/14/19 02/14/19 17:55 05:49 05:49 WBC Hgb Sodium Potassium Creatinine Vitamin B12 203 L Folate 18.60 TSH 3rd Generation Urine Opiates Screen Detected H Plasma Alcohol Radiology Reviewed by me: Yes (CTA neck - L carotid stenosis at bifurcation; Echo - EF 60%, mod LAE) EKG Reviewed by me: Yes (Tele - SR) Hospitalist ROS - Medication Medications: Active Medications Generic Name Dose Route Start Last Admin Trade Name Freq PRN Reason Stop Dose Admin Hydrocodone Bitart/Acetaminophen 1 tab 02/14/19 18:49 02/14/19 19:44 [place] 5/325 PO 1 tab Q4H PRN Administration Moderate Pain (4-6) Amlodipine Besylate 5 mg 02/14/19 09:00 02/14/19 14:16 Norvasc PO Not Given DAILY NIKKI Aspirin 81 mg 02/14/19 09:00 02/14/19 09:40 Ecotrin PO 81 mg DAILY NIKKI Administration Bacitracin Zinc 2 gm 02/13/19 21:00 02/14/19 09:40 Bacitracin Zinc Ointment 30 Gm TOP 1 applic BID NIKKI Administration Citalopram Hydrobromide 40 mg 02/14/19 09:00 02/14/19 09:41 Celexa PO 40 mg DAILY NIKKI Administration Cyanocobalamin 1,000 mcg 02/14/19 09:00 02/14/19 09:41 Vitamin B-12 PO 1,000 mcg DAILY NIKKI Administration Famotidine 20 mg 02/14/19 09:00 02/14/19 09:41 Pepcid PO 20 mg DAILY NIKKI Administration Folic Acid 1 mg 02/14/19 09:00 02/14/19 09:42 Folvite PO 1 mg DAILY NIKKI Administration Sodium Chloride 1,000 mls @ 125 mls/hr 02/13/19 23:00 02/14/19 17:22 Normal Saline 0.9% IV 1,000 mls .Q8H NIKKI Administration Levothyroxine Sodium 50 mcg 02/14/19 06:00 02/14/19 02:57 Synthroid PO 50 mcg 0600 NIKKI Administration Metoprolol Tartrate 25 mg 02/14/19 09:00 02/14/19 14:16 Lopressor PO Not Given BID NIKKI Multivitamins 1 tab 02/14/19 09:00 02/14/19 09:42 Theragran PO 1 tab DAILY NIKKI Administration Pravastatin Sodium 40 mg 02/14/19 21:00 02/14/19 19:44 Pravachol PO 40 mg HS NIKKI Administration Senna/Docusate Sodium 1 tab 02/14/19 09:00 02/14/19 19:43 Senokot S PO Not Given BID NIKKI Thiamine HCl 100 mg 02/14/19 09:00 02/14/19 09:42 Thiamine PO 100 mg DAILY NIKKI Administration - Exam General Appearance: NAD, awake alert Eye: PERRL Eye - other findings: L eye with hematoma, periorbital edema, ecchymosis ENT: no oropharyngeal lesions Neck: supple, symmetric, no JVD, no thyromegaly, no lymphadenopathy Heart: RRR, no murmur, no gallops, no rubs, normal peripheral pulses Respiratory: CTAB, no wheezes, no rales, no ronchi, normal chest expansion Gastrointestinal: soft, non-tender, non-distended, normal bowel sounds Extremities: no cyanosis, no edema Skin: normal turgor Skin - other findings: + ecchymosis on upper extremities, face Neurological: cranial nerve grossly intact, no new deficit Musculoskeletal: normal tone, generalized weakness Psychiatric: A&O x 3 Hosp A/P (1) Syncope and collapse Code(s): R55 - SYNCOPE AND COLLAPSE Status: Acute Plan: Likely multifactorial, continue IVF's, see workup listed below (2) Carotid artery stenosis Code(s): I65.29 - OCCLUSION AND STENOSIS OF UNSPECIFIED CAROTID ARTERY Status : Chronic Qualifiers: Laterality: left Qualified Code(s): I65.22 - Occlusion and stenosis of left carotid artery Plan: Consult CV surgery for evaluation (3) Orthostatic hypotension Code(s): I95.1 - ORTHOSTATIC HYPOTENSION Status: Acute Plan: Continue to monitor, adjust home BP regimen, consider Midodrine (4) MINDI (acute kidney injury) Code(s): N17.9 - ACUTE KIDNEY FAILURE, UNSPECIFIED Status: Acute Plan: Avoid nephrotoxic meds and limit contrast exposure, serial creatinine (5) Falls Code(s): W19.XXXA - UNSPECIFIED FALL, INITIAL ENCOUNTER Status: Chronic Plan: PT/OT evaluation, Rehab screening (6) Physical deconditioning Code(s): R53.81 - OTHER MALAISE Status: Chronic Plan: See above (7) Alcohol use Code(s): Z72.89 - OTHER PROBLEMS RELATED TO LIFESTYLE Status: Chronic Plan: Continue MVI, Thiamine, Folate, Add Vitamin B12 1000mcg daily - Plan plan discussed w/ family, PT/OT, social science analyst, out of bed/ambulate, DVT proph w/SCDs Stable currently Consult CV surgery regarding L carotid artery stenosis Continue ASA/Pravachol PT/OT for mobilization Rehab screening Consider Midodrine trial Lidocaine patch 5% daily Convert to inpt status given carotid artery stenosis, syncope, orthostatic hypotension AM lab: BMP
--- NOTE | 2019-02-14 21:16 | CON ---
DATE OF CONSULTATION: 02/14/2019 INDICATION FOR CONSULTATION: This is a 78-year-old gentleman, with a syncopal episode. HISTORY OF PRESENT ILLNESS: This very pleasant 78-year-old gentleman, who was at home, was apparently yesterday evening, was cooking. He had a couple beers earlier in the day, but had anything recently. He said he does not remember exactly what happened. He was cooking potatoes. He remembered drying the potatoes and the next thing, he knew he woke up on the floor. Apparently, he had been lying there for quite some time. He called his family later, he was then taken to the emergency room. He had pressure sores or warner on the left side of his face or these are due to maybe he feels something hot and then had became blisters, but it appears it could be just pressure sores, just from lying on the floor for an undisclosed length of time. He had an echocardiogram today, which showed a normal ejection fraction. He has had no previous cardiac history except he has had some arrhythmias in the past he says. He apparently had some type of procedure done in the past, he has had many years ago. He had what sounds like he may have had a cardioversion, but he is unclear exactly what this was. I did see him back in 2001. In 2000, he may have had some type of arrhythmia at that time. He had some supraventricular tachycardia, I believe. He did have some supraventricular tachycardia at that time. I am uncertain as to whether or not he was sent to [place] to undergo an ablation, I have yet to see those records. He did have an EP study in 2006. We had an ablation of SVT. He has had no significant problems since that time apparently, but this was performed here in 2006. He had an ablation for SVT. This EKG does not show any acute changes and his cardiac enzymes are thus for negative. He denied any chest pain. He had no significant shortness of breath. He does have underlying COPD, but he had smoked and he smokes cigars. At this time, he is relatively comfortable. He is complaining of some neck pain. PAST MEDICAL HISTORY: Significant for SVT ablation, hypertension, hyperlipidemia, COPD, and congestive heart failure, at this time, he does not appear to have any significant failure. He may have some diastolic dysfunction, but ejection fraction was normal. He has a history of alcohol abuse. He has chronic pain syndrome. He has depression. He has chronic low back pain. He has had multiple surgeries. He has had three back surgeries and two fusions performed. He has had a bone spur removal. He has had an appendectomy. ALLERGIES: THE PATIENT IS ALLERGIC TO TRAMADOL. MEDICATIONS: Prior to admission included; 1. Celexa. 2. [place]. 3. Atarax. 4. Levothyroxine. 5. Lopressor. 6. Pravastatin. 7. Aldactone. 8. Amlodipine/benazepril. SOCIAL HISTORY: He lives alone. His several years ago. He drinks 2 to 3 beers a day. He smokes cigars on occasion. Otherwise, he has no illicit drug use. FAMILY HISTORY: Noncontributory at this time. No early family heart disease. REVIEW OF SYSTEMS: He mainly complains of neck pain, not getting very much exercise and feeling fatigued, but otherwise, has no significant complaints on the review of systems except was noted in the history of present illness. PHYSICAL EXAMINATION: GENERAL: Reveals a well-developed, well-nourished, elderly gentleman, who is in no acute distress. HEENT: Shows multiple abrasions or pressure sores to the left side of the face. Carotid pulses are present. I did not hear any significant bruits. He does have bilateral soft bruits, but he had a carotid ultrasound performed, which showed some left internal carotid artery shows a 50% to 69%. CHEST: Clear to auscultation. Did not hear any rales, rhonchi, or wheezing. CARDIOVASCULAR: Reveals a regular rate and rhythm. He has a normal S1 and S2. I cannot hear any significant S3 or S4. There were no significant murmurs, heaves, thrills, bruits, or rubs noted. GI: Abdominal exam shows obesity with positive bowel sounds. There is no significant organomegaly or masses noted. Femoral pulses are present. Pedal pulses are present. NEUROLOGIC: The patient has no gross focal motor deficits noted at this time. IMAGING DATA: His EKG shows a normal sinus rhythm, no acute changes are noted. Cardiac enzymes are negative. LABORATORY DATA: Shows a hemoglobin 12.9 and hematocrit is 38. BUN was 14, creatinine 1.3, sodium is 132, and potassium is 4.3. WBC has gone from 12.1 to 10.1. Cardiac enzymes are negative. He did have a positive drugs for opiates; however, that was after he was given [place] in the emergency room for pain. He did have a stress test in June of 2018 after he had complained of some chest discomfort. This showed no evidence of ischemia. Ejection fraction is about 52%. IMPRESSION AND PLAN: 1. Syncopal episode of uncertain etiology. I do not appear the patient had too much to drink, but perhaps this could be due to some type of arrhythmia. I would suggest an event monitor for this gentleman as there is no significant abnormalities noted on the event monitor. He eventually may need to undergo implantation of an implantable LINQ loop recorder. We will give him the options whether or not he wants to wear a monitor for 30 days and whether or not he could be implanted with a loop recorder, which could also be an option for this gentleman since there is no other obvious etiology of his syncopal episodes and he did have a recent stress test in June of this year, would not expect that they have changed significantly and he denies any chest pain. 2. History of hypertension. The blood pressure is under good control at this time. We will continue his present medications. 3. Hyperlipidemia. He is also already taking statin medications. Would continue these medications in this gentleman. 4. Some possible diastolic dysfunction. Otherwise, his systolic function is normal. I would agree with the present medication for this. He seems to be doing quite well. There is no significant edema. 5. History of chronic alcoholism and cigar smoking. It would be best that he stop drinking altogether. We will continue to monitor the patient today and they will plan for an implantable loop recorder tomorrow after I speak with his family or whether or not he will have a 30-day event monitor placed and we can follow him up in the office. 6. History of supraventricular tachycardia, which underwent ablation many years ago. He has had no recurrence as far as we are aware. Job ID: [id number]
[2019-02-14] MEDS: Lidocaine 5% Patch TD SCH (22:44)
[2019-02-15] MEDS: Sodium Chloride 0.9% 1,000 ML IV SCH ×4 (00:05→21:15)
[2019-02-15] MEDS: Metoprolol Tartrate 25 MG TAB PO SCH ×3 (00:06→21:17)
[2019-02-15] MEDS: HYDROcodone/Acetaminophen 5/325 mg Tablet PO PRN ×5 (00:32→17:47)
[2019-02-15] MEDS: Levothyroxine Sodium 50 MCG TAB PO SCH (04:04)
[2019-02-15 07:13] LABS: Anion Gap 10 mmol/L (10-20); BUN (Urea Nitrogen) 11 mg/dL (8.4-25.7); Calc. Creatinine Clearance 68 mL/min (70-130); Carbon Dioxide 21 mmol/L (23-31); Chloride 104 mmol/L (98-107); Estimated GFR-MDRD 66; Glucose 103 mg/dL (83-110); Potassium 3.7 mmol/L (3.5-5.1); Sodium 131 mmol/L (136-145)
--- NOTE | 2019-02-15 08:12 | CON ---
DATE OF CONSULTATION: ADDENDUM: Please note, he did undergo the ablation of SVT in 2006. Also, please note, next diagnosis would be his history of left internal carotid artery stenosis of 50% to 69%. This is a possible etiology of his syncope, but it is unlikely since it is only 50% to 69%, but it may be advisable for him to seek evaluation by the CT surgeons and certainly will need followup of this in the next 6 months to a year for repeat evaluation, we could consider performing a CT angiogram of the carotids for evaluation of the actual stenosis to get a better evaluation. I will order.If significant then CT surgery consult. Job ID: [id number] MTDD
[2019-02-15] MEDS: Multivit, Therapeutic 1 TAB PO SCH (08:49)
[2019-02-15] MEDS: Aspirin 81 mg Enteric Coated Tablet PO SCH (08:49)
[2019-02-15] MEDS: Citalopram 20 MG TAB PO SCH (08:49)
[2019-02-15] MEDS: Folic Acid 1 MG TAB PO SCH (08:49)
[2019-02-15] MEDS: Thiamine 100 MG TAB PO SCH (08:50)
[2019-02-15] MEDS: Famotidine 20 MG TAB PO SCH (08:50)
[2019-02-15] MEDS: Cyanocobalamin (Vitamin B-12) 1,000 MCG TAB PO SCH (08:50)
[2019-02-15] MEDS: Senokot S 8.6-50 MG TAB PO SCH ×2 (08:50→21:17)
[2019-02-15] MEDS: Amlodipine 5 MG TAB PO SCH (08:52)
[2019-02-15] MEDS: Bacitracin Zinc Ointment 30 gm TUBE TOP SCH (08:52)
--- NOTE | 2019-02-15 11:45 | PDOC.CPN ---
- Subjective Date: 02/15/19 Time: 08:30 Interval history: The pt seen and examined. No overnight events. No cardiac complaints. - Objective Allergies/Adverse Reactions: Allergies Allergy/AdvReac Type Severity Reaction Status Date / Time tramadol AdvReac Intermediate Verified 02/13/19 20:51 Visit Medications: Current Medications Acetaminophen (Tylenol) 650 mg PO Q4H PRN PRN Reason: Headache/Fever/Mild Pain (1-3) Hydrocodone Bitart/Acetaminophen ([place] 5/325) 1 tab PO Q4H PRN PRN Reason: Moderate Pain (4-6) Last Admin: 02/15/19 08:50 Dose: 1 tab Amlodipine Besylate (Norvasc) 5 mg PO DAILY [facility] Last Admin: 02/15/19 08:52 Dose: Not Given Artificial Tears (Tears Naturale) 0 drop EA EYE PRN PRN PRN Reason: Dry Eyes Aspirin (Ecotrin) 81 mg PO DAILY [facility] Last Admin: 02/15/19 08:49 Dose: 81 mg Bacitracin Zinc (Bacitracin Zinc Ointment 30 Gm) 2 gm TOP BID [facility] Last Admin: 02/15/19 08:52 Dose: 1 applic Calcium Carbonate (Tums) 1,000 mg PO Q4H PRN PRN Reason: Heartburn or Indigestion Citalopram Hydrobromide (Celexa) 40 mg PO DAILY [facility] Last Admin: 02/15/19 08:49 Dose: 40 mg Cyanocobalamin (Vitamin B-12) 1,000 mcg PO DAILY [facility] Last Admin: 02/15/19 08:50 Dose: 1,000 mcg Famotidine (Pepcid) 20 mg PO DAILY [facility] Last Admin: 02/15/19 08:50 Dose: 20 mg Folic Acid (Folvite) 1 mg PO DAILY [facility] Last Admin: 02/15/19 08:49 Dose: 1 mg Sodium Chloride (Normal Saline 0.9%) 1,000 mls @ 125 mls/hr IV .Q8H [facility] Last Admin: 02/15/19 11:01 Dose: 1,000 mls Labetalol HCl (Normodyne) 10 mg SLOW IVP Q4H PRN PRN Reason: Systolic BP > 180 Levothyroxine Sodium (Synthroid) 50 mcg PO 0600 [facility] Last Admin: 02/15/19 04:04 Dose: 50 mcg Lidocaine (Lidoderm 5% Patch) 1 patch TD 2100 [facility] Last Admin: 02/14/19 22:44 Dose: 1 patch Lorazepam (Ativan) 1 mg PO Q4H PRN PRN Reason: ASE >=9 Metoprolol Tartrate (Lopressor) 25 mg PO BID [facility] Last Admin: 02/15/19 08:52 Dose: Not Given Mineral Oil/White Petrolatum (Systane Nighttime Eye Ointment) 0 gm EA EYE Q8H PRN PRN Reason: Dry Eyes Multivitamins (Theragran) 1 tab PO DAILY [facility] Last Admin: 02/15/19 08:49 Dose: 1 tab Nitroglycerin (Nitrostat) 0.4 mg PO Q5MIN PRN PRN Reason: Chest Pain Pravastatin Sodium (Pravachol) 40 mg PO HS [facility] Last Admin: 02/14/19 19:44 Dose: 40 mg Senna/Docusate Sodium (Senokot S) 1 tab PO BID [facility] Last Admin: 02/15/19 08:50 Dose: 1 tab Sodium Chloride (Flush - Normal Saline) 10 ml IVF PRN PRN PRN Reason: Saline Flush Thiamine HCl (Thiamine) 100 mg PO DAILY [facility] Last Admin: 02/15/19 08:50 Dose: 100 mg Vital Signs & Weight: Vital Signs Temp Pulse Pulse Pulse Resp BP BP 02/15/19 09:00 94 85 127/70 146/72 H 02/15/19 07:53 98 F 76 24 H 02/15/19 04:00 75 18 BP BP BP Pulse Ox 02/15/19 09:00 02/15/19 07:53 126/66 113/64 153/73 H 94 L 02/15/19 04:00 163/81 H 94 L Weight 190 lb 6.4 oz - Physical Exam General: alert & oriented x3 HEENT: mucus membranes moist Neck: supple neck Cardiac: regular rate and rhythm, S1/S2 Lungs: clear to auscultation Abdomen: unremarkable Extremities: no cyanosis Skin: burned (on Lt face) Musculoskeletal: decreased range of motion - Labs Result Diagrams: 02/14/19 05:49 02/15/19 05:53 Troponin/CKMB Troponin I Less than 0.010 ng/mL (< 0.028) 02/13/19 16:09 - Telemetry Sinus rhythms and dysrhythmias: sinus rhythm - Assessment/Plan Assessment/Plan: 1. Syncope and collapse - possible orthostatic Hypotension or arrhythmia; LINQ placement at 1500 2. Orothostatic hypotension - receiving IV fluid; may start Midodorane lowest dose 3. Lt Carotid artery stenosis - consulted by Dr Ennis; recheck in 6 months 4. MINDI - stable 5. ETOH abuse - ETOH cessation education given MAR reviewed pt. seen and eval. by me. I agree with the A/P by the HOUSE WORKER. He likely has multiple reasons for the syncope. The implantable loop recorder was placed today. If the syncope is due to bradycardia or pauses then a pacemaker will be indicated. I agree with midodrine. If the BP is too high then he may not tolerate it. Probable can be d/c'd tomorrow. dann
[2019-02-15 13:53] VITALS: BMI 25.8
--- NOTE | 2019-02-15 14:35 | PDOC.HOSPP ---
- Subjective Encounter Date: 02/15/19 Encounter Time: 14:25 Subjective: f/u for syncope likely multifactorial with component of orthostatic hypotension. Plan for LINQ placement today. No new complaints. - Objective Vital Signs & Weight: Vital Signs (12 hours) Temp Pulse Pulse Pulse Resp BP BP 02/15/19 11:37 99.5 F 84 18 02/15/19 09:00 94 85 127/70 146/72 H 02/15/19 08:40 02/15/19 07:53 98 F 76 24 H 02/15/19 04:00 75 18 BP BP BP BP Pulse Ox 02/15/19 11:37 149/70 H 94 L 02/15/19 09:00 02/15/19 08:40 94 L 02/15/19 07:53 126/66 113/64 153/73 H 94 L 02/15/19 04:00 163/81 H 94 L Weight Admit Weight 190 lb 6.4 oz Weight 190 lb 6.4 oz I&O: 02/14/19 02/15/19 02/16/19 06:59 06:59 06:59 Intake Total 1312.5 Output Total 1225 1655 600 Balance -1225 -342.5 -600 Result Diagrams: 02/14/19 05:49 02/15/19 05:53 Additional Labs: Microbiology 02/13/19 15:14 Nasal swab Influenza Types A,B Direct EIA - Final 02/13/19 17:55 Urine voided Urine Culture - Preliminary NO GROWTH AT 12 HOURS Laboratory Tests 02/13/19 02/13/19 02/13/19 13:40 13:40 13:40 WBC 12.1 H Hgb 14.0 Sodium 130 L Potassium 5.4 H Creatinine 1.56 H Vitamin B12 Folate TSH 3rd Generation 1.1779 Urine Opiates Screen Plasma Alcohol Less than 10 02/13/19 02/14/19 02/14/19 17:55 05:49 05:49 WBC Hgb Sodium Potassium Creatinine Vitamin B12 203 L Folate 18.60 TSH 3rd Generation Urine Opiates Screen Detected H Plasma Alcohol EKG Reviewed by me: Yes (Tele - SR) Hospitalist ROS - Medication Medications: Active Medications Generic Name Dose Route Start Last Admin Trade Name Freq PRN Reason Stop Dose Admin Hydrocodone Bitart/Acetaminophen 1 tab 02/14/19 18:49 02/15/19 13:01 [place] 5/325 PO 1 tab Q4H PRN Administration Moderate Pain (4-6) Amlodipine Besylate 5 mg 02/14/19 09:00 02/15/19 08:52 Norvasc PO Not Given DAILY NIKKI Aspirin 81 mg 02/14/19 09:00 02/15/19 08:49 Ecotrin PO 81 mg DAILY NIKKI Administration Bacitracin Zinc 2 gm 02/13/19 21:00 02/15/19 08:52 Bacitracin Zinc Ointment 30 Gm TOP 1 applic BID NIKKI Administration Citalopram Hydrobromide 40 mg 02/14/19 09:00 02/15/19 08:49 Celexa PO 40 mg DAILY NIKKI Administration Cyanocobalamin 1,000 mcg 02/14/19 09:00 02/15/19 08:50 Vitamin B-12 PO 1,000 mcg DAILY NIKKI Administration Famotidine 20 mg 02/14/19 09:00 02/15/19 08:50 Pepcid PO 20 mg DAILY NIKKI Administration Folic Acid 1 mg 02/14/19 09:00 02/15/19 08:49 Folvite PO 1 mg DAILY NIKKI Administration Sodium Chloride 1,000 mls @ 125 mls/hr 02/13/19 23:00 02/15/19 11:01 Normal Saline 0.9% IV 1,000 mls .Q8H NIKKI Administration Levothyroxine Sodium 50 mcg 02/14/19 06:00 02/15/19 04:04 Synthroid PO 50 mcg 0600 NIKKI Administration Lidocaine 1 patch 02/14/19 21:00 02/14/19 22:44 Lidoderm 5% Patch TD 1 patch 2100 NIKKI Administration Metoprolol Tartrate 25 mg 02/14/19 09:00 02/15/19 08:52 Lopressor PO Not Given BID NIKKI Multivitamins 1 tab 02/14/19 09:00 02/15/19 08:49 Theragran PO 1 tab DAILY NIKKI Administration Pravastatin Sodium 40 mg 02/14/19 21:00 02/14/19 19:44 Pravachol PO 40 mg HS NIKKI Administration Senna/Docusate Sodium 1 tab 02/14/19 09:00 02/15/19 08:50 Senokot S PO 1 tab BID NIKKI Administration Thiamine HCl 100 mg 02/14/19 09:00 02/15/19 08:50 Thiamine PO 100 mg DAILY NIKKI Administration - Exam General Appearance: NAD, awake alert General - other findings: L cheek burn Eye: PERRL, anicteric sclera Eye - other findings: L periorbital edema, ecchymosis decreased Neck: supple, symmetric, no JVD, no thyromegaly Heart: RRR, no gallops, no rubs, normal peripheral pulses Respiratory: CTAB, no wheezes, no rales, no ronchi Gastrointestinal: soft, non-tender, non-distended, normal bowel sounds, no palpable masses Extremities: no cyanosis, no edema Extremities - other findings: multiple areas of ecchymosis Skin: normal turgor Neurological: cranial nerve grossly intact, no new deficit Musculoskeletal: normal tone, generalized weakness Psychiatric: normal affect, A&O x 3 Hosp A/P (1) Syncope and collapse Code(s): R55 - SYNCOPE AND COLLAPSE Status: Acute Plan: Etiology unclear and likely multifactorial including orthostasis, LINQ placement today, consider Midodrine for d/c (2) Carotid artery stenosis Code(s): I65.29 - OCCLUSION AND STENOSIS OF UNSPECIFIED CAROTID ARTERY Status : Chronic Qualifiers: Laterality: left Qualified Code(s): I65.22 - Occlusion and stenosis of left carotid artery Plan: No surgical intervention recommended, continue antiplatelet therapy (3) Orthostatic hypotension Code(s): I95.1 - ORTHOSTATIC HYPOTENSION Status: Acute Plan: Trial Midodrine (4) MINDI (acute kidney injury) Code(s): N17.9 - ACUTE KIDNEY FAILURE, UNSPECIFIED Status: Acute Plan: Improved, continue IVF's, likely hypovolemic mediated (5) Falls Code(s): W19.XXXA - UNSPECIFIED FALL, INITIAL ENCOUNTER Status: Chronic (6) Physical deconditioning Code(s): R53.81 - OTHER MALAISE Status: Chronic Plan: Inpt rehab screening (7) Alcohol use Code(s): Z72.89 - OTHER PROBLEMS RELATED TO LIFESTYLE Status: Chronic - Plan plan discussed w/ family, PT/OT, social media coordinator, out of bed/ambulate, DVT proph w/SCDs Stable currently Consult CV surgery regarding L carotid artery stenosis, no surgical intervention recommended Continue ASA/Pravachol PT/OT for mobilization Rehab screening in progress LINQ placement today Consider Midodrine trial Lidocaine patch 5% daily Convert to inpt status given carotid artery stenosis, syncope, orthostatic hypotension AM lab: BMP
--- NOTE | 2019-02-15 15:37 | CON ---
DATE OF CONSULTATION: HISTORY OF PRESENT ILLNESS: This is a 78-year-old gentleman, who lives alone in the [place] area, having retired from the railroad. He found himself on the floor of his kitchen, apparently passed out for reasons that are not clear, although he does admit to drinking on a daily basis. He had been making something in his kitchen, and when he woke up, he had bruises on his face as well as some facial warner that was suspected to be from some boiling water. In the course of evaluation, he underwent carotid ultrasonography showing a peak systolic velocity on the left of 169 cm/second, and a CTA was done and read as 76% narrowed on the left; however, on my review, it appears to be probably in the 60% range. PAST MEDICAL HISTORY: Includes treatment for some sort of supraventricular tachycardia in the past, both here and in [place]. He has had hypertension, dyslipidemia, COPD. PAST SURGICAL HISTORY: Includes three neck surgeries as well as appendectomy, bone spur removal. MEDICATIONS: Prior to admission included, 1. Amlodipine/benazepril. 2. Aldactone. 3. Pravastatin. 4. Lopressor. 5. Levothyroxine. 6. Atarax. 7. [place]. 8. Celexa. ALLERGIES: TRAMADOL. PHYSICAL EXAMINATION: GENERAL: Alert, cooperative gentleman, appearing his stated age. HEENT: Bruising and abrasion on the left side of his face. NECK: No carotid bruits. LUNGS: Clear to auscultation. CARDIAC: Regular rate and rhythm. No murmurs. VITAL SIGNS: Most recent blood pressure supine 153, standing 113, sitting 126; heart rate 76 and regular. ABDOMEN: Soft and nontender. No aneurysm. No organomegaly. EXTREMITIES: He has easily palpable femoral pulses bilaterally as well as a right dorsalis pedis and left posterior tibial pulses with no peripheral edema. ASSESSMENT: 1. Left carotid stenosis, which I think is noncritical and can be monitored as an outpatient, which I will arrange in 6 months for carotid ultrasound. 2. Orthostatic hypotension with syncopal episode and evaluation is in progress for that. I have discussed the situation with the patient and daughter, and we will follow him up as an outpatient for his carotid disease. Job ID: [id number]
[2019-02-15] MEDS ORDERED: Lidocaine 1% w/Epinephrine 1:100K 20 ML VIAL ONE (16:26)
[2019-02-15] MEDS: Lidocaine 5% Patch TD SCH (21:14)
[2019-02-15] MEDS: Midodrine HCl 5 MG TAB PO SCH (21:16)
[2019-02-15] MEDS: Pravastatin Sodium 40 MG TAB PO SCH (21:16)
[2019-02-16] MEDS: Sodium Chloride 0.9% 1,000 ML IV SCH ×2 (00:45→07:16)
[2019-02-16] MEDS: Bacitracin Zinc Ointment 30 gm TUBE TOP SCH ×4 (00:46→20:26)
--- NOTE | 2019-02-16 01:00 | PRG ---
DATE OF SERVICE: 02/15/2019 SUBJECTIVE: This is a 78-year-old gentleman who was brought to the emergency room 2 days ago after falling sometime in the night. The patient reports that he was boiling some water heating up his food in the oven and reports a scald burn to the left side of his face when he was taking it out of the oven. The patient is tolerating a diet. The patient's pain is controlled at this time. The patient did report that he did not sleep as well due to his chronic neck pain. OBJECTIVE: VITAL SIGNS: Temperature 98.0, pulse 76, respirations 18, SpO2 of 94% on room air, blood pressure 127/70. GENERAL: Awake, alert, ambulating with physical therapy, no acute distress. HEENT: Head is normocephalic with small laceration on the occiput that has been repaired with demar. Left side of face and forehead thermal warner, redness, erythema. Neck is nontender, trachea is midline. CHEST: Equal chest rise and fall, good inspiratory and expiratory effort. No respiratory distress. CARDIAC: Regular rate regular rhythm. EXTREMITIES: Moves all extremities neurovascularly intact x4. The laceration with 3 sutures noted to the dorsum of the thumb on the left hand. LABORATORY DATA: Sodium 131, potassium 3.7, chloride 104, carbon dioxide 21, creatinine 1.08, estimated GFR 66. IMPRESSION: 1. Status post fall. 2. Superficial first and second-degree burn to the left side of face and ear. 3. Hyponatremia. 4. Likely syncopal episode. PLAN: Plan will be to have Medicine Service continue to manage the patient. Wound care to continue to manage the patient's left facial warner. The patient was examined by Dr. Sidhu this morning during morning rounds. Trauma Services will sign off the patient at this time. Please let us know if you have any questions or need further assistance. Job ID: [id number]
[2019-02-16] MEDS: HYDROcodone/Acetaminophen 5/325 mg Tablet PO PRN ×4 (01:04→20:28)
[2019-02-16] MEDS: Levothyroxine Sodium 50 MCG TAB PO SCH (05:12)
[2019-02-16] MEDS: Senokot S 8.6-50 MG TAB PO SCH ×2 (09:03→20:27)
[2019-02-16] MEDS: Aspirin 81 mg Enteric Coated Tablet PO SCH (09:03)
[2019-02-16] MEDS: Citalopram 20 MG TAB PO SCH (09:03)
[2019-02-16] MEDS: Folic Acid 1 MG TAB PO SCH (09:03)
[2019-02-16] MEDS: Thiamine 100 MG TAB PO SCH (09:04)
[2019-02-16] MEDS: Amlodipine 5 MG TAB PO SCH (09:04)
[2019-02-16] MEDS: Midodrine HCl 5 MG TAB PO SCH ×3 (09:04→20:27)
[2019-02-16] MEDS: Metoprolol Tartrate 25 MG TAB PO SCH ×2 (09:04→20:27)
[2019-02-16] MEDS: Multivit, Therapeutic 1 TAB PO SCH (09:04)
[2019-02-16] MEDS: Famotidine 20 MG TAB PO SCH ×2 (09:04→20:28)
[2019-02-16] MEDS: Cyanocobalamin (Vitamin B-12) 1,000 MCG TAB PO SCH (09:05)
[2019-02-16] MEDS: Lidocaine Patch Removal 1 EACH TOP SCH (09:05)
--- NOTE | 2019-02-16 14:33 | PDOC.CPN ---
- Subjective Date: 02/16/19 Time: 14:37 Interval history: The pt seen and examined. No overnight events. No cardiac complaints. - Objective Allergies/Adverse Reactions: Allergies Allergy/AdvReac Type Severity Reaction Status Date / Time tramadol AdvReac Intermediate Verified 02/13/19 20:51 Visit Medications: Current Medications Acetaminophen (Tylenol) 650 mg PO Q4H PRN PRN Reason: Headache/Fever/Mild Pain (1-3) Hydrocodone Bitart/Acetaminophen (Brielle 5/325) 1 tab PO Q4H PRN PRN Reason: Moderate Pain (4-6) Last Admin: 02/16/19 12:05 Dose: 1 tab Amlodipine Besylate (Norvasc) 5 mg PO DAILY [facility] Last Admin: 02/16/19 09:04 Dose: 5 mg Artificial Tears (Tears Naturale) 0 drop EA EYE PRN PRN PRN Reason: Dry Eyes Aspirin (Ecotrin) 81 mg PO DAILY [facility] Last Admin: 02/16/19 09:03 Dose: 81 mg Bacitracin Zinc (Bacitracin Zinc Ointment 30 Gm) 2 gm TOP BID [facility] Last Admin: 02/16/19 09:05 Dose: 1 applic Calcium Carbonate (Tums) 1,000 mg PO Q4H PRN PRN Reason: Heartburn or Indigestion Citalopram Hydrobromide (Celexa) 40 mg PO DAILY [facility] Last Admin: 02/16/19 09:03 Dose: 40 mg Cyanocobalamin (Vitamin B-12) 1,000 mcg PO DAILY [facility] Last Admin: 02/16/19 09:05 Dose: 1,000 mcg Famotidine (Pepcid) 20 mg PO BID [facility] Last Admin: 02/16/19 09:04 Dose: 20 mg Folic Acid (Folvite) 1 mg PO DAILY [facility] Last Admin: 02/16/19 09:03 Dose: 1 mg Labetalol HCl (Normodyne) 10 mg SLOW IVP Q4H PRN PRN Reason: Systolic BP > 180 Levothyroxine Sodium (Synthroid) 50 mcg PO 0600 [facility] Last Admin: 02/16/19 05:12 Dose: 50 mcg Lidocaine (Lidoderm 5% Patch) 1 patch TD 2100 [facility] Last Admin: 02/15/19 21:14 Dose: 1 patch Lorazepam (Ativan) 1 mg PO Q4H PRN PRN Reason: ASE >=9 Metoprolol Tartrate (Lopressor) 25 mg PO BID [facility] Last Admin: 02/16/19 09:04 Dose: 25 mg Midodrine (Proamatine) 5 mg PO BID [facility] Last Admin: 02/16/19 09:04 Dose: 5 mg Mineral Oil/White Petrolatum (Systane Nighttime Eye Ointment) 0 gm EA EYE Q8H PRN PRN Reason: Dry Eyes Miscellaneous Medication (Lidocaine Patch Removal) 1 each TOP 0900 [facility] Last Admin: 02/16/19 09:05 Dose: 1 each Multivitamins (Theragran) 1 tab PO DAILY [facility] Last Admin: 02/16/19 09:04 Dose: 1 tab Nitroglycerin (Nitrostat) 0.4 mg PO Q5MIN PRN PRN Reason: Chest Pain Pravastatin Sodium (Pravachol) 40 mg PO HS [facility] Last Admin: 02/15/19 21:16 Dose: 40 mg Senna/Docusate Sodium (Senokot S) 1 tab PO BID [facility] Last Admin: 02/16/19 09:03 Dose: Not Given Sodium Chloride (Flush - Normal Saline) 10 ml IVF Q12HR [facility] Last Admin: 02/16/19 09:06 Dose: 10 ml Sodium Chloride (Flush - Normal Saline) 10 ml IVF PRN PRN PRN Reason: Saline Flush Thiamine HCl (Thiamine) 100 mg PO DAILY [facility] Last Admin: 02/16/19 09:04 Dose: 100 mg Vital Signs & Weight: Vital Signs Temp Pulse Resp BP BP BP Pulse Ox 02/16/19 12:06 98.7 F 58 L 18 167/79 H 94 L 02/16/19 09:04 74 02/16/19 08:29 99.4 F 74 18 112/58 L 114/55 L 162/76 H 98 02/16/19 03:00 75 18 167/84 H 97 Admit Weight 190 lb 6.4 oz Weight 190 lb 6.4 oz - Physical Exam General: alert & oriented x3 HEENT: mucus membranes moist Neck: supple neck Cardiac: regular rate and rhythm, S1/S2 Lungs: clear to auscultation Neuro: cranial nerve 2-12 intact Skin: burned (Lt face) Musculoskeletal: decreased range of motion - Labs Result Diagrams: 02/14/19 05:49 02/15/19 05:53 Troponin/CKMB Troponin I Less than 0.010 ng/mL (< 0.028) 02/13/19 16:09 - Telemetry Sinus rhythms and dysrhythmias: sinus rhythm - Assessment/Plan Assessment/Plan: 1. Syncope and collapse - possible orthostatic Hypotension or arrhythmia; s/p LINQ placement on 02/15/2019 2. Orothostatic hypotension - Orth BP this AM was 50 points different; Increase Midodorane to 5mg TID; 3. Lt Carotid artery stenosis - consulted by Dr Ennis; recheck in 6 months 4. MINDI - stable 5. ETOH abuse - ETOH cessation education given MAR reviewed * Echo on 02/14/2019 with EF 60-65%, grade I dd, mod-severe dilated LA, mild ERA , and trace MR and TR * Possible tx to rehab tomorrow. Pt. seen and eval. by me. I agre with the A/P by the [facility]. Okay to d/c from a cardiac standpoint. orthostatic hypotension can be dealt with on an outpt. basis by primary MD. I will see the pt. in 1-2 weeks in the office. I will sign off.
--- NOTE | 2019-02-16 17:57 | PDOC.HOSPP ---
- Subjective Encounter Date: 02/16/19 Subjective: Pt seen feeling better says was able to walk with PT today and dizziness better - Objective Vital Signs & Weight: Vital Signs (12 hours) Temp Pulse Resp BP BP BP Pulse Ox 02/16/19 16:20 98.2 F 59 L 16 165/79 H 94 L 02/16/19 12:06 98.7 F 58 L 18 167/79 H 94 L 02/16/19 09:04 74 02/16/19 08:29 99.4 F 74 18 112/58 L 114/55 L 162/76 H 98 Weight Admit Weight 190 lb 6.4 oz Weight 190 lb 6.4 oz I&O: 02/15/19 02/16/19 02/17/19 06:59 06:59 06:59 Intake Total 1312.5 3345 Output Total 1655 800 Balance -342.5 2545 Result Diagrams: 02/14/19 05:49 02/15/19 05:53 Hospitalist ROS - Review of Systems Constitutional: reports: weakness Eyes: denies: pain ENT: denies: ear pain Respiratory: denies: cough Cardiovascular: denies: chest pain Gastrointestinal: denies: nausea Musculoskeletal: denies: neck pain Neurological: denies: weakness - Medication Medications: Active Medications Generic Name Dose Route Start Last Admin Trade Name Freq PRN Reason Stop Dose Admin Hydrocodone Bitart/Acetaminophen 1 tab 02/14/19 18:49 02/16/19 12:05 [place] 5/325 PO 1 tab Q4H PRN Administration Moderate Pain (4-6) Amlodipine Besylate 5 mg 02/14/19 09:00 02/16/19 09:04 Norvasc PO 5 mg DAILY [facility] Administration Aspirin 81 mg 02/14/19 09:00 02/16/19 09:03 Ecotrin PO 81 mg DAILY [facility] Administration Bacitracin Zinc 2 gm 02/13/19 21:00 02/16/19 09:05 Bacitracin Zinc Ointment 30 Gm TOP 1 applic BID [facility] Administration Citalopram Hydrobromide 40 mg 02/14/19 09:00 02/16/19 09:03 Celexa PO 40 mg DAILY [facility] Administration Cyanocobalamin 1,000 mcg 02/14/19 09:00 02/16/19 09:05 Vitamin B-12 PO 1,000 mcg DAILY [facility] Administration Famotidine 20 mg 10/29/19 09:00 02/16/19 09:04 Pepcid PO 20 mg BID [facility] Administration Folic Acid 1 mg 02/14/19 09:00 02/16/19 09:03 Folvite PO 1 mg DAILY [facility] Administration Levothyroxine Sodium 50 mcg 02/14/19 06:00 02/16/19 05:12 Synthroid PO 50 mcg 0600 [facility] Administration Lidocaine 1 patch 02/14/19 21:00 02/15/19 21:14 Lidoderm 5% Patch TD 1 patch 2100 [facility] Administration Metoprolol Tartrate 25 mg 02/14/19 09:00 02/16/19 09:04 Lopressor PO 25 mg BID [facility] Administration Midodrine 5 mg 02/16/19 15:00 02/16/19 15:04 Proamatine PO 5 mg TID [facility] Administration Miscellaneous Medication 1 each 02/16/19 09:00 02/16/19 09:05 Lidocaine Patch Removal TOP 1 each 0900 [facility] Administration Multivitamins 1 tab 02/14/19 09:00 02/16/19 09:04 Theragran PO 1 tab DAILY [facility] Administration Pravastatin Sodium 40 mg 02/14/19 21:00 02/15/19 21:16 Pravachol PO 40 mg HS [facility] Administration Senna/Docusate Sodium 1 tab 02/14/19 09:00 02/16/19 09:03 Senokot S PO Not Given BID [facility] Sodium Chloride 10 ml 02/15/19 21:00 02/16/19 09:06 Flush - Normal Saline IVF 10 ml Q12HR [facility] Administration Thiamine HCl 100 mg 02/14/19 09:00 02/16/19 09:04 Thiamine PO 100 mg DAILY [facility] Administration - Exam General Appearance: awake alert General - other findings: left fascial abrasion Eye: anicteric sclera ENT: normocephalic atraumatic Neck: supple Heart: no murmur Respiratory: CTAB Gastrointestinal: soft Extremities: no cyanosis Skin: normal turgor Neurological: cranial nerve grossly intact Musculoskeletal: normal tone Psychiatric: normal affect Hosp A/P - Plan Syncope and collapse possible multifactorial due to dehydration and Orthostatic hypotension related , LINQ placement 02/15/2019 , continue Midodrine feeling better able to move and walk today Carotid artery stenosisNo surgical intervention recommended, continue antiplatelet therapy MINDI Improving d/daniel IVF today Physical deconditioning with falls Continue PT evaluation Alcohol use Recomended Continue Abstinance DVT/GI prophyalxis Possible disposition t in am
[2019-02-16] MEDS: Pravastatin Sodium 40 MG TAB PO SCH (20:28)
[2019-02-16] MEDS: Lidocaine 5% Patch TD SCH (20:30)
[2019-02-17] MEDS: HYDROcodone/Acetaminophen 5/325 mg Tablet PO PRN ×3 (04:17→15:43)
[2019-02-17] MEDS: Levothyroxine Sodium 50 MCG TAB PO SCH (04:18)
[2019-02-17] MEDS: Aspirin 81 mg Enteric Coated Tablet PO SCH (08:38)
[2019-02-17] MEDS: Amlodipine 5 MG TAB PO SCH (08:38)
[2019-02-17] MEDS: Citalopram 20 MG TAB PO SCH (08:38)
[2019-02-17] MEDS: Bacitracin Zinc Ointment 30 gm TUBE TOP SCH (08:38)
[2019-02-17] MEDS: Famotidine 20 MG TAB PO SCH (08:39)
[2019-02-17] MEDS: Cyanocobalamin (Vitamin B-12) 1,000 MCG TAB PO SCH (08:39)
[2019-02-17] MEDS: Folic Acid 1 MG TAB PO SCH (08:39)
[2019-02-17] MEDS: Midodrine HCl 5 MG TAB PO SCH (08:40)
[2019-02-17] MEDS: Multivit, Therapeutic 1 TAB PO SCH (08:40)
[2019-02-17] MEDS: Metoprolol Tartrate 25 MG TAB PO SCH (08:40)
[2019-02-17] MEDS: Senokot S 8.6-50 MG TAB PO SCH (08:40)
[2019-02-17] MEDS: Thiamine 100 MG TAB PO SCH (08:41)
[2019-02-17] MEDS: Lidocaine Patch Removal 1 EACH TOP SCH (08:45)
[2019-02-17 12:10] VITALS: TEMP 98.4
[2019-02-17] MEDS ORDERED: Midodrine HCl 5 MG TAB PO SCH (15:00)
[2019-02-17 15:05] VITALS: BP 169/77
--- NOTE | 2019-02-17 23:27 | DIS ---
DATE OF ADMISSION: 02/14/2019 DATE OF DISCHARGE: 02/17/2019 DISCHARGE DIAGNOSES: 1. Syncope, possible multifactorial due to dehydration and orthostatic hypotension, status post LINQ placement, 02/15/2019. 2. Carotid artery stenosis. 3. Acute kidney injury. 4. Deconditioning. 5. History of alcohol abuse. PHYSICAL EXAMINATION: VITAL SIGNS: Blood pressure 122/56, temperature 97.9, pulse 54, oxygen saturation 93% on room air, respiratory rate 18. LABORATORY DATA: CBC unremarkable. BMP unremarkable except sodium 131. B12 of 203. Folate TSH 1.20. UA negative. Toxicology negative except opiates. Carotid Doppler, moderate 50% to 69% stenosis, left ICA. CT angiography neck, short-segment severe stenosis involving the left carotid bifurcation and proximal internal carotid arteries, nonspecific soft tissue neck subcutaneous fat stranding. Brain CT, no CT evidence of acute pathology. Echocardiogram, ejection fraction 65%. Severe diastolic dysfunction. HOSPITAL SUMMARY: Patient, Doni Serrato, presented with syncope and left facial abrasion. Patient admitted for syncope workup. Patient was also positive orthostatic vitals, clinical dehydration. The patient treated with IV fluids in the beginning and also evaluated by Cardiology and patient showed stenosis on the left carotid artery. The patient evaluated by Dr. Von Ennis, recommended no intervention at present and recommended to follow up. The patient also evaluated by Cardiology. Patient placed on LINQ and had orthostatic vitals positive. Added midodrine. Patient currently stable, walking without any symptoms. Patient been on beta blockers, dose decreased today due to sinus bradycardia. However, the patient denies any symptoms, being discharged to rehabilitation facility in a stable condition. Advised to follow up as patient with PCP, Cardiology, and Vascular Surgery. Job ID: [id number]
== END 2019-02-17 18:14 | DRG 261 ==
LOC: ERS 12:48 → 2SW 17:00 → OBSVTOIN 02-14 19:47
PROVIDERS: ADMIT Internal Medicine; ATTEND Internal Medicine
PROC: 3E0234Z Introduction of Serum, Toxoid and Vaccine into Muscle, Percutaneous Approach (ICD-10-PCS; 2019-02-14)
PROC: 0JH632Z Insertion of Monitoring Device into Chest Subcutaneous Tissue and Fascia, Percutaneous Approach (ICD-10-PCS; principal; 2019-02-15)
DX: I95.1 Orthostatic hypotension (principal); N17.9 Acute kidney failure, unspecified; E87.1 Hypo-osmolality and hyponatremia; I50.32 Chronic diastolic (congestive) heart failure; E86.0 Dehydration; I65.22 Occlusion and stenosis of left carotid artery; F32.9 Major depressive disorder, single episode, unspecified; J44.9 Chronic obstructive pulmonary disease, unspecified; I11.0 Hypertensive heart disease with heart failure; E87.5 Hyperkalemia; F17.290 Nicotine dependence, other tobacco product, uncomplicated; F10.20 Alcohol dependence, uncomplicated; G89.4 Chronic pain syndrome; R00.1 Bradycardia, unspecified; I44.1 Atrioventricular block, second degree; Z23 Encounter for immunization; Z88.8 Allergy status to other drugs, medicaments and biological substances; Z79.899 Other long term (current) drug therapy
CPT/HCPCS: 12002; 16020; 33285; 36415; 70450; 70486; 70498; 71045; 72125; 72170; 80048; 80053; 80306; 80307; 81003; 82607; 82746; 83735; 84100; 84443; 84484; 85025; 87086; 87804; 90471; 90715; 93005; 93306; 93880; 94760; C1764; J2001; J2543; J3370; J3420; Q0162; Q9966

== ENCOUNTER 2019-06-07 23:41 | Emergency (ER) | payer MEDICARE, OTHER ==
[2019-06-08] MEDS ORDERED: diphenhydrAMINE 50 MG/ML VIAL ONE (00:22)
[2019-06-08] MEDS ORDERED: Metoclopramide HCl 10 MG/2 ML VIAL ONE (00:22)
[2019-06-08 00:24] LABS: #Basophils 0.1 thou/uL (0.0-0.2); #Eosinphils 0.2 thou/uL (0.0-0.7); #Lymphocytes 2.4 thou/uL (1.20-3.40); #Monocytes 0.9 thou/uL (0.11-0.59); %Basophils 0.6 % (0.0-1.0); %Eosinophils 2.1 % (0.0-10.0); %Lymphocytes 24.8 % (21.0-51.0); %Neutrophils 63.5 % (42.0-75.0); Hemoglobin 15.4 g/dL (14.0-18.0); Mean Corpuscular HGB CONC 35.3 g/dL (32.0-36.0); Mean Corpuscular Hemoglobin 34.3 pg (27.0-31.0); Mean Corpuscular Volume 97.3 fL (78.0-98.0); Mean Platelet Volume 6.9 fL (7.4-10.4); Platelet Count 213 thou/uL (130-400); RBC Distribution Width 11.4 % (11.5-14.5); Red Blood Cell (RBC) Count 4.49 mill/uL (4.70-6.10); White Blood Cell (WBC) Count 9.5 thou/uL (4.8-10.8)
[2019-06-08 00:33] LABS: ALT (SGPT) 27 U/L (8-55); AST (SGOT) 29 U/L (5-34); Albumin 3.9 g/dL (3.4-4.8); Alkaline Phosphatase 74 U/L (40-110); Anion Gap 13 mmol/L (10-20); BUN (Urea Nitrogen) 12 mg/dL (8.4-25.7); Bilirubin, Total 0.3 mg/dL (0.2-1.2); Calc. Creatinine Clearance 0 mL/min (70-130); Calcium 8.6 mg/dL (7.8-10.44); Carbon Dioxide 21 mmol/L (23-31); Chloride 104 mmol/L (98-107); Estimated GFR-MDRD 65; Globulin 2.9 g/dL (2.4-3.5); Glucose 99 mg/dL (83-110); Potassium 4.4 mmol/L (3.5-5.1); Protein, Total 6.8 g/dL (5.8-8.1); Sodium 134 mmol/L (136-145)
--- NOTE | 2019-06-08 07:10 | CT ---
PRELIMINARY REPORT/[facility]/EMERGENCY AFTER HOURS PROCEDURE: EXAM: CT Head Without Intravenous Contrast. CLINICAL HISTORY: Several hour history of MARTINEZ and nausea. Pt checked BP at home SBP 160s-170s and called EMS. On arrival SBP was 192 and pt was given sublingual nitro then paste which improved BP. Now pt states MARTINEZ is pers istent but improved. He now is primarily bothered by his chronic neck pain for which he takes [place]. Denies any neuro deficit. No vision changes. no vomiting. no CP/SOB. TECHNIQUE: Axial computed tomography images of the head/brain without intravenous contrast. COMPARISON: None provided. FINDINGS: BRAIN: No acute intraparenchymal hemorrhage. No mass lesion. No CT evidence for acute territorial inf arct. No midline shift or extra-axial collection. There is a hypodensity in the periventricular whit e matter likely due to chronic microvascular ischemic change. VENTRICLES: No hydrocephalus. ORBITS: The orbits are unremarkable. SINUSES AND MASTOIDS: The paranasal sinuses and mastoid air cells are clear. SOFT TISSUES: No significant facial or scalp soft tissue swelling evident. No radiopaque foreign body is seen. BONES: No acute skull fracture. IMPRESSION: No acute intracranial abnormality. ELECTRONICALLY SIGNED BY: Cat Garcia D.O. Jun 08, 2019 1:10:10 AM PATTERN KEEPER This report is intended for review by the ordering physician only, in accordance of law. If you recei ve this report in error, please call [facility] at [phone]. FINAL REPORT EMERGENCY AFTER HOURS CT BRAIN WITHOUT CONTRAST: DATE: 06/08/2019 COMPARISON: 02/13/19. FINDINGS/IMPRESSION: I agree with the findings and impression given in the preliminary report per [facility] physici an. No evidence of acute intracranial abnormality.
--- NOTE | 2019-06-08 08:56 | RAD ---
CHEST 1 VIEW: HISTORY: Hypertensive urgency. COMPARISON: 02/13/2019. FINDINGS: Increased linear and interstitial markings bilaterally. Poor inspiratory effort. Arthrosis changes of both shoulders. Loop recorder overlying the left lower chest. IMPRESSION: Less than optimal inspiration with increased markings bilaterally without confluent pneumonia. Ather osclerosis of the aorta with ectasia. Left-sided loop recorder. Depending on concern, consideration for short-term followup PA and lateral chest with improved inspiratory effort should be considered. POS: [id number]
== END 2019-06-08 02:37 | disposition home or self-care (01) ==
LOC: ERS 23:41
DX: R51 Headache (principal); I11.0 Hypertensive heart disease with heart failure; I50.9 Heart failure, unspecified; J44.9 Chronic obstructive pulmonary disease, unspecified; E78.5 Hyperlipidemia, unspecified; F32.9 Major depressive disorder, single episode, unspecified; F17.210 Nicotine dependence, cigarettes, uncomplicated; F17.290 Nicotine dependence, other tobacco product, uncomplicated
CPT/HCPCS: 36415; 70450; 71045; 80053; 84484; 85025; 93005; 96365; 96375; J1200; J2765

== ENCOUNTER 2020-08-20 16:58 | Emergency (ER) | payer MEDICARE, OTHER | END 2020-08-20 19:56 | disposition home or self-care (01) | LOC: ERS 16:58 | DX: M25.461 Effusion, right knee (principal); Z79.899 Other long term (current) drug therapy; Z79.891 Long term (current) use of opiate analgesic; I11.0 Hypertensive heart disease with heart failure; I50.9 Heart failure, unspecified; E78.5 Hyperlipidemia, unspecified; J44.9 Chronic obstructive pulmonary disease, unspecified; F17.290 Nicotine dependence, other tobacco product, uncomplicated; M79.604 Pain in right leg ==

== ENCOUNTER 2022-07-09 23:30 | Inpatient (IN) | payer MEDICARE, OTHER ==
[2022-07-09] MEDS ORDERED: LORazepam 2 MG/ML SYR.(CARPUJECT) ONE (23:50)
[2022-07-09] MEDS ORDERED: Pantoprazole 40 MG VIAL ONE (23:50)
[2022-07-10 00:06] LABS: #Basophils 0.1 thou/uL (0.0-0.2); #Eosinphils 0.1 thou/uL (0.0-0.7); #Lymphocytes 1.3 thou/uL (1.20-3.40); #Monocytes 0.6 thou/uL (0.11-0.59); #Neutrophils 4.8 thou/uL (1.40-6.50); %Basophils 0.9 % (0.0-1.0); %Eosinophils 1.5 % (0.0-10.0); %Lymphocytes 18.5 % (21.0-51.0); %Monocytes 9.2 % (0.0-10.0); %Neutrophils 69.9 % (42.0-75.0); Hemoglobin 16.7 g/dL (14.0-18.0); Mean Corpuscular HGB CONC 35.1 g/dL (32.0-36.0); Mean Corpuscular Hemoglobin 35.5 pg (27.0-31.0); Mean Platelet Volume 6.9 fL (7.4-10.4); Platelet Count 206 10x3/uL (130-400); RBC Distribution Width 12.2 % (11.5-14.5); White Blood Cell (WBC) Count 6.8 10x3/uL (4.8-10.8)
[2022-07-10 00:27] LABS: ALT (SGPT) 25 U/L (8-55); AST (SGOT) 45 U/L (5-34); Albumin 3.6 g/dL (3.4-4.8); Alkaline Phosphatase 91 U/L (40-110); Anion Gap 18 mmol/L (10-20); BUN (Urea Nitrogen) 9 mg/dL (8.4-25.7); Bilirubin, Total 0.9 mg/dL (0.2-1.2); Calc. Creatinine Clearance 0 mL/min (70-130); Calcium 8.4 mg/dL (7.8-10.44); Carbon Dioxide 21 mmol/L (23-31); Chloride 102 mmol/L (98-107); Estimated GFR 66; Globulin 3.4 g/dL (2.4-3.5); Glucose 115 mg/dL (83-110); Lipase 63 U/L (8-78); Magnesium 1.4 mg/dL (1.6-2.6); Potassium 4.4 mmol/L (3.5-5.1); Sodium 137 mmol/L (136-145)
[2022-07-10 02:06] LABS: Actual Bicarbonate (HCO3v) 21 mEq/L (22-28); Base Excess -2.6 mEq/L (-2.0 to +3.0); Calcium, Ionized (venous) 0.95 mmol/L (1.16-1.32); Chloride (VBG) 101 mmol/L (98-106); Hemoglobin (Hb) 17.6 g/dL (12.6-17.4); Potassium (VBG) 4.08 mmol/L (3.70-5.30); Sodium 138.7 mmol/L (133-146); pH (venous) 7.41 (7.32-7.43)
[2022-07-10] MEDS ORDERED: Ondansetron PF 4 MG/2 ML Vial IVP PRN (02:18)
[2022-07-10] MEDS ORDERED: Lorazepam 2 MG/ML VIAL IM PRN (02:18)
[2022-07-10] MEDS ORDERED: Lorazepam 1 MG TAB PO PRN (02:18)
[2022-07-10] MEDS ORDERED: Ondansetron ODT 4 MG TAB PO PRN (02:18)
[2022-07-10] MEDS ORDERED: Magnesium 2 GM/50 ML(in water) 2 GM in Premix Bag 1 BAG IVPB SCH (02:30)
[2022-07-10] MEDS ORDERED: Thiamine HCl 200 MG/2 ML VIAL SLOW IVP SCH (02:30)
[2022-07-10] MEDS ORDERED: Electrolyte Replacement Protocol 1 EACH FS SCH (02:30)
[2022-07-10 03:11] LABS: Bilirubin Negative (Negative); Blood, Urine Negative (Negative); Clarity Clear (Clear); Glucose, Urine (Dipstick) Normal (Negative); Ketone, Urine Negative (Negative); Leukocyte Negative Leu/uL (Negative); Nitrite Negative (Negative); Protein, Urine (Dipstick) Negative (Neg-Trace); Specific Gravity, Urine 1.014 (1.002-1.036); Urobilinogen Normal mg/dL (Less than 2); pH, Urine 7.5 (5.0-9.0)
[2022-07-10 03:43] VITALS: BMI 27.9
[2022-07-10] MEDS: Lorazepam 1 MG TAB PO SCH ×4 (03:54→20:17)
[2022-07-10] MEDS: hydrALAZINE 20 MG/ML VIAL SLOW IVP PRN ×2 (04:02→17:07)
[2022-07-10 04:44] LABS: #Eosinphils 0.1 thou/uL (0.0-0.7); #Monocytes 0.7 thou/uL (0.11-0.59); #Neutrophils 4.5 thou/uL (1.40-6.50); %Basophils 0.3 % (0.0-1.0); %Eosinophils 0.8 % (0.0-10.0); %Lymphocytes 27.7 % (21.0-51.0); %Monocytes 9.9 % (0.0-10.0); %Neutrophils 61.3 % (42.0-75.0); Mean Corpuscular HGB CONC 32.3 g/dL (32.0-36.0); Mean Corpuscular Hemoglobin 32.4 pg (27.0-31.0); Platelet Count 189 10x3/uL (130-400); RBC Distribution Width 12.2 % (11.5-14.5); Red Blood Cell (RBC) Count 4.62 mill/uL (4.70-6.10); White Blood Cell (WBC) Count 7.3 10x3/uL (4.8-10.8)
[2022-07-10 05:15] LABS: Anion Gap 14 mmol/L (10-20); BUN (Urea Nitrogen) 7 mg/dL (8.4-25.7); Calc. Creatinine Clearance 88 mL/min (70-130); Calcium 7.9 mg/dL (7.8-10.44); Carbon Dioxide 22 mmol/L (23-31); Chloride 105 mmol/L (98-107); Estimated GFR 86; Glucose 97 mg/dL (83-110); Magnesium 1.9 mg/dL (1.6-2.6); Potassium 3.8 mmol/L (3.5-5.1); Sodium 137 mmol/L (136-145)
[2022-07-10] MEDS ORDERED: Levothyroxine Sodium 125 MCG TAB PO SCH (06:00)
[2022-07-10] MEDS: Amlodipine 10 MG TAB PO SCH (08:57)
[2022-07-10] MEDS: Folic Acid 1 MG TAB PO SCH (08:57)
[2022-07-10] MEDS: Pantoprazole 40 MG VIAL IVP SCH ×2 (08:57→20:18)
[2022-07-10] MEDS ORDERED: Multivit, Therapeutic 1 TAB PO SCH (09:00)
[2022-07-10] MEDS ORDERED: Iopamidol-370 76% 500 ML MDV (1 ML CHARGE) ONE (09:46)
[2022-07-10] MEDS ORDERED: Citalopram 20 MG TAB PO SCH (16:30)
[2022-07-10] MEDS: hydrOXYzine 10 MG TAB PO SCH (20:18)
[2022-07-10] MEDS: Senokot S 8.6-50 MG TAB PO SCH (20:18)
[2022-07-10] MEDS: Atorvastatin Calcium 10 MG TAB PO SCH (20:18)
[2022-07-11] MEDS ORDERED: Lorazepam 1 MG TAB PO PRN (02:19)
[2022-07-11] MEDS: Lorazepam 1 MG TAB PO SCH ×4 (03:32→21:25)
[2022-07-11 05:04] LABS: Anion Gap 14 mmol/L (10-20); BUN (Urea Nitrogen) 4 mg/dL (8.4-25.7); Calc. Creatinine Clearance 87 mL/min (70-130); Calcium 8.2 mg/dL (7.8-10.44); Carbon Dioxide 21 mmol/L (23-31); Chloride 104 mmol/L (98-107); Estimated GFR 86; Glucose 91 mg/dL (83-110); Magnesium 1.7 mg/dL (1.6-2.6); Potassium 3.5 mmol/L (3.5-5.1); Sodium 135 mmol/L (136-145); Uric Acid 6.5 mg/dL (3.5-7.2)
[2022-07-11] MEDS ORDERED: Magnesium 2 GM/50 ML(in water) 2 GM in Premix Bag 1 BAG IVPB SCH (05:15)
[2022-07-11] MEDS: Levothyroxine Sodium 50 MCG TAB PO SCH (05:41)
[2022-07-11] MEDS: Cyanocobalamin (Vitamin B-12) 1,000 MCG TAB PO SCH (09:15)
[2022-07-11] MEDS: Amlodipine 10 MG TAB PO SCH (09:15)
[2022-07-11] MEDS: Folic Acid 1 MG TAB PO SCH (09:15)
[2022-07-11] MEDS: Senokot S 8.6-50 MG TAB PO SCH ×2 (09:15→21:25)
[2022-07-11] MEDS: Multivit, Therapeutic 1 TAB PO SCH (09:16)
[2022-07-11] MEDS: Citalopram 20 MG TAB PO SCH (09:16)
[2022-07-11] MEDS: Pantoprazole 40 MG VIAL IVP SCH ×2 (09:17→21:25)
[2022-07-11] MEDS ORDERED: Loperamide HCl 2 MG CAP PO PRN (11:46)
[2022-07-11] MEDS ORDERED: Loperamide HCl 2 MG CAP PO SCH (12:00)
[2022-07-11] MEDS: Metoprolol Tartrate 25 MG TAB PO SCH (21:24)
[2022-07-11] MEDS: Atorvastatin Calcium 10 MG TAB PO SCH (21:25)
[2022-07-11] MEDS: hydrOXYzine 10 MG TAB PO SCH (21:25)
[2022-07-12] MEDS ORDERED: Lorazepam 1 MG TAB PO PRN (02:19)
[2022-07-12] MEDS: Acetaminophen 325 MG TAB PO PRN ×2 (02:25→21:28)
[2022-07-12] MEDS: Lorazepam 0.5 MG TAB PO SCH ×4 (02:26→21:28)
[2022-07-12 05:12] LABS: Anion Gap 13 mmol/L (10-20); BUN (Urea Nitrogen) 8 mg/dL (8.4-25.7); Calc. Creatinine Clearance 83 mL/min (70-130); Carbon Dioxide 21 mmol/L (23-31); Chloride 103 mmol/L (98-107); Potassium 3.8 mmol/L (3.5-5.1); Sodium 133 mmol/L (136-145)
[2022-07-12 05:13] LABS: ALT (SGPT) 16 U/L (8-55); AST (SGOT) 30 U/L (5-34); Albumin 3.3 g/dL (3.4-4.8); Alkaline Phosphatase 90 U/L (40-110); Calcium 8.2 mg/dL (7.8-10.44); Estimated GFR 85; Glucose 105 mg/dL (83-110); Protein, Total 6.3 g/dL (5.8-8.1)
[2022-07-12] MEDS: Levothyroxine Sodium 50 MCG TAB PO SCH (05:56)
[2022-07-12] MEDS: Pantoprazole 40 MG VIAL IVP SCH ×2 (08:20→21:27)
[2022-07-12] MEDS: Multivit, Therapeutic 1 TAB PO SCH (08:20)
[2022-07-12] MEDS: Citalopram 20 MG TAB PO SCH (08:21)
[2022-07-12] MEDS: Senokot S 8.6-50 MG TAB PO SCH ×2 (08:22→21:28)
[2022-07-12] MEDS: Folic Acid 1 MG TAB PO SCH (08:22)
[2022-07-12] MEDS: Cyanocobalamin (Vitamin B-12) 1,000 MCG TAB PO SCH (08:22)
[2022-07-12] MEDS: Amlodipine 10 MG TAB PO SCH (08:22)
[2022-07-12] MEDS: Metoprolol Tartrate 25 MG TAB PO SCH ×2 (08:22→21:27)
[2022-07-12] MEDS: hydrOXYzine 10 MG TAB PO SCH (21:28)
[2022-07-12] MEDS: Atorvastatin Calcium 10 MG TAB PO SCH (21:28)
[2022-07-13] MEDS ORDERED: Lorazepam 0.5 MG TAB PO PRN (02:19)
[2022-07-13] MEDS: Levothyroxine Sodium 50 MCG TAB PO SCH (06:00)
[2022-07-13] MEDS: Senokot S 8.6-50 MG TAB PO SCH (08:17)
[2022-07-13] MEDS: Metoprolol Tartrate 25 MG TAB PO SCH (08:17)
[2022-07-13] MEDS: Folic Acid 1 MG TAB PO SCH (08:18)
[2022-07-13] MEDS: Citalopram 20 MG TAB PO SCH (08:18)
[2022-07-13] MEDS: Amlodipine 10 MG TAB PO SCH (08:18)
[2022-07-13] MEDS: Cyanocobalamin (Vitamin B-12) 1,000 MCG TAB PO SCH (08:18)
[2022-07-13] MEDS: Multivit, Therapeutic 1 TAB PO SCH (08:18)
[2022-07-13] MEDS: Pantoprazole 40 MG VIAL IVP SCH (08:19)
[2022-07-13] MEDS ORDERED: Thiamine 100 MG TAB PO SCH (09:00)
[2022-07-13 15:46] VITALS: BP 165/88; TEMP 98.2
== END 2022-07-13 16:20 | DRG 897 ==
LOC: ERS 23:30 → 2NO 07-10 02:16 → OBSVTOIN 07-10 16:47
PROVIDERS: ADMIT Family Medicine; ATTEND Internal Medicine
PROC: HZ2ZZZZ Detoxification Services for Substance Abuse Treatment (ICD-10-PCS; principal; 2022-07-10)
DX: F10.931 Alcohol use, unspecified with withdrawal delirium (principal); I11.0 Hypertensive heart disease with heart failure; I25.10 Atherosclerotic heart disease of native coronary artery without angina pectoris; J44.9 Chronic obstructive pulmonary disease, unspecified; F17.210 Nicotine dependence, cigarettes, uncomplicated; E83.42 Hypomagnesemia; I50.9 Heart failure, unspecified; Z88.5 Allergy status to narcotic agent; Z79.890 Hormone replacement therapy; Z79.82 Long term (current) use of aspirin; Z79.899 Other long term (current) drug therapy; Z90.49 Acquired absence of other specified parts of digestive tract
CPT/HCPCS: 36415; 36416; 74177; 80048; 80053; 81003; 82805; 83690; 83735; 84100; 84443; 84484; 84550; 85025; 93005; 96372; 96374; 96375; 96376; C9113; G0378; J0360; J1650; J2060; J3411; J3475; Q9967; U0003; U0005

== ENCOUNTER 2022-12-05 12:43 | Inpatient (IN) | payer MEDICARE, OTHER ==
[~2022-12-05 12:43] MED LIST changes: -ISOVUE-370 76%-LOCM 1 ML ONE; +Iopamidol-370 76% 500 ML MDV (1 ML CHARGE) ONE
[2022-12-05 14:03] LABS: #Basophils 0.1 thou/uL (0.0-0.2); #Eosinphils 0.4 thou/uL (0.0-0.7); #Monocytes 0.9 thou/uL (0.11-0.59); #Neutrophils 6.6 thou/uL (1.40-6.50); %Basophils 0.5 % (0.0-1.0); %Eosinophils 3.6 % (0.0-10.0); %Lymphocytes 18.8 % (21.0-51.0); %Monocytes 8.9 % (0.0-10.0); %Neutrophils 67.7 % (42.0-75.0); Hematocrit 44.3 % (42.0-52.0); Hemoglobin 15.3 g/dL (14.0-18.0); Mean Corpuscular HGB CONC 34.5 g/dL (32.0-36.0); Mean Corpuscular Hemoglobin 33.7 pg (27.0-31.0); Mean Corpuscular Volume 97.6 fl (78.0-98.0); Mean Platelet Volume 9.2 fL (7.4-10.4); Platelet Count 199 10x3/uL (130-400); RBC Distribution Width 13.8 % (11.5-14.5); Red Blood Cell (RBC) Count 4.54 mill/uL (4.70-6.10); White Blood Cell (WBC) Count 9.8 10x3/uL (4.8-10.8)
[2022-12-05 14:25] LABS: ALT (SGPT) 16 U/L (8-55); AST (SGOT) 25 U/L (5-34); Albumin 3.2 g/dL (3.4-4.8); Alkaline Phosphatase 77 U/L (40-110); Anion Gap 12 mmol/L (10-20); BUN (Urea Nitrogen) 7 mg/dL (8.4-25.7); Bilirubin, Total 0.9 mg/dL (0.2-1.2); Calc. Creatinine Clearance 0 mL/min (70-130); Carbon Dioxide 22 mmol/L (23-31); Chloride 100 mmol/L (98-107); Estimated GFR 62; Globulin 2.7 g/dL (2.4-3.5); Glucose 87 mg/dL (83-110); Potassium 3.2 mmol/L (3.5-5.1); Protein, Total 5.9 g/dL (5.8-8.1); Sodium 131 mmol/L (136-145)
[2022-12-05] MEDS ORDERED: Potassium Chloride 20 MEQ TAB ONE (14:55)
[2022-12-05 15:04] LABS: Bacteria/HPF None Seen HPF (None Seen); Bilirubin Negative (Negative); Blood, Urine Negative (Negative); CAUTI Indications for Culture Pelvic or flank pain; Clarity Clear (Clear); Glucose, Urine (Dipstick) Normal (Negative); Ketone, Urine Negative (Negative); Leukocyte Negative Leu/uL (Negative); Nitrite Negative (Negative); Protein, Urine (Dipstick) Negative (Neg-Trace); RBC/HPF None Seen HPF (0-3); Specific Gravity, Urine 1.004 (1.002-1.036); Squamous Epithelial 0-3 HPF (0-3); Urobilinogen Normal mg/dL (Less than 2); WBC/HPF 0-3 HPF (0-3)
[2022-12-05 15:06] LABS: Urine Culture Reflex No No
[2022-12-05] MEDS ORDERED: Ondansetron PF 4 MG/2 ML Vial IVP PRN (21:42)
[2022-12-05] MEDS ORDERED: Lorazepam 1 MG TAB PO PRN (21:42)
[2022-12-05] MEDS ORDERED: Ondansetron ODT 4 MG TAB PO PRN ×2 (21:42)
[2022-12-05] MEDS ORDERED: Lorazepam 2 MG/ML VIAL IM PRN (21:42)
[2022-12-05] MEDS ORDERED: Electrolyte Replacement Protocol 1 EACH FS SCH (21:45)
[2022-12-05] MEDS ORDERED: Sodium Chloride 0.9% 1,000 ML IV SCH (21:45)
[2022-12-05] MEDS ORDERED: Lorazepam 1 MG TAB PO SCH (21:45)
[2022-12-05 22:14] LABS: Magnesium 1.4 mg/dL (1.6-2.6); Phosphorus 3.1 mg/dL (2.3-4.7)
[2022-12-05] MEDS ORDERED: Magnesium Sulfate In Water 4 GM in Premix Bag 1 BAG IVPB SCH (22:30)
[2022-12-05 23:10] VITALS: BMI 25.9
[2022-12-05] MEDS: Thiamine HCl 200 MG/2 ML VIAL SLOW IVP SCH (23:27)
[2022-12-05] MEDS: Acetaminophen 325 MG TAB PO PRN (23:34)
[2022-12-06 06:25] LABS: #Basophils 0.1 thou/uL (0.0-0.2); #Eosinphils 0.5 thou/uL (0.0-0.7); #Monocytes 0.8 thou/uL (0.11-0.59); #Neutrophils 3.8 thou/uL (1.40-6.50); %Basophils 0.8 % (0.0-1.0); %Eosinophils 6.6 % (0.0-10.0); %Lymphocytes 27.3 % (21.0-51.0); %Monocytes 10.8 % (0.0-10.0); %Neutrophils 53.5 % (42.0-75.0); Hematocrit 45.5 % (42.0-52.0); Hemoglobin 15.3 g/dL (14.0-18.0); Mean Corpuscular HGB CONC 33.6 g/dL (32.0-36.0); Mean Corpuscular Hemoglobin 33.3 pg (27.0-31.0); Mean Corpuscular Volume 98.9 fl (78.0-98.0); Mean Platelet Volume 9.1 fL (7.4-10.4); Platelet Count 179 10x3/uL (130-400); RBC Distribution Width 13.8 % (11.5-14.5); White Blood Cell (WBC) Count 7.1 10x3/uL (4.8-10.8)
[2022-12-06 06:50] LABS: Anion Gap 10 mmol/L (10-20); BUN (Urea Nitrogen) 5 mg/dL (8.4-25.7); Calc. Creatinine Clearance 80 mL/min (70-130); Calcium 7.7 mg/dL (7.8-10.44); Carbon Dioxide 22 mmol/L (23-31); Chloride 106 mmol/L (98-107); Estimated GFR 86; Glucose 78 mg/dL (83-110); Magnesium 2.3 mg/dL (1.6-2.6); Phosphorus 3.2 mg/dL (2.3-4.7); Potassium 3.2 mmol/L (3.5-5.1); Sodium 135 mmol/L (136-145)
[2022-12-06] MEDS: Multivit, Therapeutic 1 TAB PO SCH (08:00)
[2022-12-06] MEDS: Folic Acid 1 MG TAB PO SCH (08:00)
[2022-12-06] MEDS: Famotidine 20 MG TAB PO SCH ×2 (08:00→21:20)
[2022-12-06] MEDS ORDERED: Potassium Chloride 20 MEQ TAB PO SCH (08:00)
[2022-12-06] MEDS ORDERED: diphenhydrAMINE 30 GM TUBE TOP PRN (10:30)
[2022-12-06] MEDS: Loperamide HCl 2 MG CAP PO PRN ×2 (14:07→21:20)
[2022-12-06] MEDS: Thiamine HCl 200 MG/2 ML VIAL SLOW IVP SCH (21:20)
[2022-12-06] MEDS ORDERED: Lorazepam 1 MG TAB PO PRN (21:42)
[2022-12-07] MEDS: Multivit, Therapeutic 1 TAB PO SCH (08:52)
[2022-12-07] MEDS: Folic Acid 1 MG TAB PO SCH (08:52)
[2022-12-07] MEDS: Famotidine 20 MG TAB PO SCH ×2 (08:52→21:59)
[2022-12-07] MEDS ORDERED: hydrALAZINE 20 MG/ML VIAL SLOW IVP PRN (09:32)
[2022-12-07] MEDS: Metoprolol Tartrate 25 MG TAB PO SCH ×2 (10:20→21:59)
[2022-12-07] MEDS: NIFEdipine XL 30 MG TAB PO SCH (10:20)
[2022-12-07] MEDS: Loperamide HCl 2 MG CAP PO PRN ×2 (10:20→21:59)
[2022-12-07] MEDS ORDERED: Pravastatin Sodium 40 MG TAB PO SCH (21:00)
[2022-12-07] MEDS: Lorazepam 1 MG TAB PO PRN (21:58)
[2022-12-07] MEDS: hydrOXYzine 10 MG TAB PO SCH (21:58)
[2022-12-07] MEDS: Atorvastatin Calcium 10 MG TAB PO SCH (21:59)
[2022-12-07] MEDS: Senokot S 8.6-50 MG TAB PO SCH (21:59)
[2022-12-07] MEDS: Thiamine HCl 200 MG/2 ML VIAL SLOW IVP SCH (22:06)
[2022-12-08] MEDS: Acetaminophen 325 MG TAB PO PRN (01:57)
[2022-12-08] MEDS: Lorazepam 1 MG TAB PO PRN (04:00)
[2022-12-08] MEDS: Cyanocobalamin (Vitamin B-12) 1,000 MCG TAB PO SCH (09:03)
[2022-12-08] MEDS: Aspirin 81 mg Enteric Coated Tablet PO SCH (09:03)
[2022-12-08] MEDS: Citalopram 20 MG TAB PO SCH (09:03)
[2022-12-08] MEDS: Famotidine 20 MG TAB PO SCH ×2 (09:04→21:24)
[2022-12-08] MEDS: NIFEdipine XL 30 MG TAB PO SCH ×2 (09:04→21:24)
[2022-12-08] MEDS: Loperamide HCl 2 MG CAP PO PRN (09:04)
[2022-12-08] MEDS: Thiamine 100 MG TAB PO SCH (09:04)
[2022-12-08] MEDS: Levothyroxine Sodium 50 MCG TAB PO SCH (09:04)
[2022-12-08] MEDS: Folic Acid 1 MG TAB PO SCH (09:04)
[2022-12-08] MEDS: Multivit, Therapeutic 1 TAB PO SCH (09:04)
[2022-12-08] MEDS: Metoprolol Tartrate 25 MG TAB PO SCH ×2 (09:04→21:25)
[2022-12-08] MEDS: Senokot S 8.6-50 MG TAB PO SCH (09:05)
[2022-12-08 11:03] LABS: #Basophils 0.1 thou/uL (0.0-0.2); #Eosinphils 0.3 thou/uL (0.0-0.7); #Monocytes 0.9 thou/uL (0.11-0.59); #Neutrophils 4.9 thou/uL (1.40-6.50); %Basophils 0.6 % (0.0-1.0); %Eosinophils 3.9 % (0.0-10.0); %Lymphocytes 24.5 % (21.0-51.0); %Monocytes 11.2 % (0.0-10.0); %Neutrophils 59.4 % (42.0-75.0); Hematocrit 44.5 % (42.0-52.0); Hemoglobin 15.2 g/dL (14.0-18.0); Mean Corpuscular HGB CONC 34.2 g/dL (32.0-36.0); Mean Corpuscular Hemoglobin 33.7 pg (27.0-31.0); Mean Corpuscular Volume 98.7 fl (78.0-98.0); Mean Platelet Volume 9.2 fL (7.4-10.4); Platelet Count 159 10x3/uL (130-400); RBC Distribution Width 13.2 % (11.5-14.5); Red Blood Cell (RBC) Count 4.51 mill/uL (4.70-6.10); White Blood Cell (WBC) Count 8.2 10x3/uL (4.8-10.8)
[2022-12-08 11:30] LABS: Anion Gap 14 mmol/L (10-20); Calc. Creatinine Clearance 68 mL/min (70-130); Calcium 8.5 mg/dL (7.8-10.44); Carbon Dioxide 20 mmol/L (23-31); Chloride 101 mmol/L (98-107); Estimated GFR 74; Glucose 110 mg/dL (83-110); Magnesium 1.6 mg/dL (1.6-2.6); Potassium 2.9 mmol/L (3.5-5.1); Sodium 132 mmol/L (136-145)
[2022-12-08 11:53] LABS: BUN (Urea Nitrogen) 6 mg/dL (8.4-25.7)
[2022-12-08] MEDS ORDERED: Potassium Chloride 20 MEQ TAB PO SCH (13:00)
[2022-12-08] MEDS ORDERED: Magnesium 2 GM/50 ML(in water) 2 GM in Premix Bag 1 BAG IVPB SCH (13:00)
[2022-12-08] MEDS ORDERED: Lactated Ringer's 1,000 ML IV SCH (14:00)
[2022-12-08] MEDS ORDERED: Magnesium Oxide 400 MG TAB PO SCH (14:15)
[2022-12-08] MEDS: Potassium Chloride 20 MEQ TAB PO SCH ×2 (14:53→21:24)
[2022-12-08] MEDS: Floranex 1 GM Packet PO SCH ×2 (14:53→21:23)
[2022-12-08] MEDS ORDERED: Thiamine 100 MG TAB PO SCH (21:00)
[2022-12-08] MEDS: Cholestyramine/Aspartame 4 gm Packet PO SCH (21:23)
[2022-12-08] MEDS: hydrOXYzine 10 MG TAB PO SCH (21:24)
[2022-12-08] MEDS: Atorvastatin Calcium 10 MG TAB PO SCH (21:24)
[2022-12-08] MEDS ORDERED: Lorazepam 0.5 MG TAB PO PRN (21:42)
[2022-12-08] MEDS ORDERED: Melatonin 3 MG TAB PO PRN (23:59)
[2022-12-09 07:39] LABS: #Basophils 0.1 thou/uL (0.0-0.2); #Eosinphils 0.2 thou/uL (0.0-0.7); #Monocytes 0.9 thou/uL (0.11-0.59); #Neutrophils 4.5 thou/uL (1.40-6.50); %Basophils 0.9 % (0.0-1.0); %Eosinophils 2.7 % (0.0-10.0); %Lymphocytes 25.7 % (21.0-51.0); %Monocytes 12.1 % (0.0-10.0); Hematocrit 45.3 % (42.0-52.0); Hemoglobin 14.9 g/dL (14.0-18.0); Mean Corpuscular HGB CONC 32.9 g/dL (32.0-36.0); Mean Corpuscular Hemoglobin 33.3 pg (27.0-31.0); Mean Corpuscular Volume 101.3 fl (78.0-98.0); Mean Platelet Volume 9.5 fL (7.4-10.4); Platelet Count 155 10x3/uL (130-400); RBC Distribution Width 13.3 % (11.5-14.5); Red Blood Cell (RBC) Count 4.47 mill/uL (4.70-6.10); White Blood Cell (WBC) Count 7.7 10x3/uL (4.8-10.8)
[2022-12-09] MEDS: Acetaminophen 325 MG TAB PO PRN (07:42)
[2022-12-09] MEDS: Citalopram 20 MG TAB PO SCH (07:45)
[2022-12-09] MEDS: NIFEdipine XL 30 MG TAB PO SCH (07:45)
[2022-12-09] MEDS: Levothyroxine Sodium 50 MCG TAB PO SCH (07:45)
[2022-12-09] MEDS: Folic Acid 1 MG TAB PO SCH (07:46)
[2022-12-09] MEDS: Famotidine 20 MG TAB PO SCH (07:46)
[2022-12-09] MEDS: Potassium Chloride 20 MEQ TAB PO SCH (07:46)
[2022-12-09] MEDS: Aspirin 81 mg Enteric Coated Tablet PO SCH (07:46)
[2022-12-09] MEDS: Multivit, Therapeutic 1 TAB PO SCH (07:46)
[2022-12-09] MEDS: Thiamine 100 MG TAB PO SCH (07:46)
[2022-12-09] MEDS: Cyanocobalamin (Vitamin B-12) 1,000 MCG TAB PO SCH (07:46)
[2022-12-09] MEDS: Metoprolol Tartrate 25 MG TAB PO SCH (07:46)
[2022-12-09 08:06] LABS: Anion Gap 1 mmol/L (10-20); BUN (Urea Nitrogen) 7 mg/dL (8.4-25.7); Calc. Creatinine Clearance 67 mL/min (70-130); Calcium 8.6 mg/dL (7.8-10.44); Carbon Dioxide 21 mmol/L (23-31); Chloride 112 mmol/L (98-107); Estimated GFR 72; Glucose 98 mg/dL (83-110); Magnesium 1.8 mg/dL (1.6-2.6); Potassium 4.3 mmol/L (3.5-5.1); Sodium 130 mmol/L (136-145)
[2022-12-09] MEDS ORDERED: Magnesium 2 GM/50 ML(in water) 2 GM in Premix Bag 1 BAG IVPB SCH (09:00)
[2022-12-09] MEDS ORDERED: Magnesium Oxide 400 MG TAB PO SCH (09:00)
[2022-12-09] MEDS: Floranex 1 GM Packet PO SCH ×2 (09:24→14:06)
[2022-12-09] MEDS: Cholestyramine/Aspartame 4 gm Packet PO SCH (09:24)
[2022-12-09] MEDS: Loperamide HCl 2 MG CAP PO PRN ×2 (09:38→12:08)
[2022-12-09 16:46] VITALS: BP 152/80; TEMP 97.6
[2022-12-10 14:59] LABS: Campy jejuni + coli by PCR Negative (Negative); STEC Shiga Toxin 1+2 Negative (Negative); Salmonella spp. by PCR Negative (Negative); Shigella spp + EIEC by PCR Negative (Negative)
== END 2022-12-09 18:00 | disposition home or self-care (01) | DRG 897 ==
LOC: ERS 12:43 → T4-B 21:05 → OBSVTOIN 12-06 16:41
PROVIDERS: ADMIT Student in an Organized Health Care Education/Training Program; ATTEND Hospitalist
PROC: HZ2ZZZZ Detoxification Services for Substance Abuse Treatment (ICD-10-PCS; principal; 2022-12-06)
DX: F10.20 Alcohol dependence, uncomplicated (principal); E87.1 Hypo-osmolality and hyponatremia; R44.0 Auditory hallucinations; I11.0 Hypertensive heart disease with heart failure; E78.5 Hyperlipidemia, unspecified; E03.9 Hypothyroidism, unspecified; I50.9 Heart failure, unspecified; F17.210 Nicotine dependence, cigarettes, uncomplicated; E87.6 Hypokalemia; Z71.41 Alcohol abuse counseling and surveillance of alcoholic; Z88.6 Allergy status to analgesic agent; Z79.899 Other long term (current) drug therapy; Z90.49 Acquired absence of other specified parts of digestive tract; Z98.890 Other specified postprocedural states; Z79.890 Hormone replacement therapy; Z79.82 Long term (current) use of aspirin; R29.6 Repeated falls
CPT/HCPCS: 36415; 74177; 80048; 80053; 80307; 81001; 83735; 84100; 84443; 85025; 87086; 87324; 87328; 87329; 87449; 87505; 96360; J1650; J3411; J3475; J7050; J7120; Q9967

== ENCOUNTER 2023-10-02 05:58 | Emergency (ER) | payer MEDICARE, OTHER ==
[2023-10-02 07:07] LABS: #Basophils 0.06 10x3/uL (0.0-0.2); %Basophils 0.7 % (0.0-1.0); %Lymphocytes 21.2 % (21.0-51.0); %Monocytes 11.1 % (0.0-10.0); %Neutrophils 64.6 % (42.0-75.0); Hematocrit 43.9 % (42.0-52.0); Hemoglobin 14.7 g/dL (14.0-18.0); Mean Corpuscular HGB CONC 33.5 g/dL (32.0-36.0); Mean Corpuscular Volume 95.4 fL (78.0-98.0); Mean Platelet Volume 9.3 fL (7.4-10.4); Platelet Count 282 10x3/uL (130-400); RBC Distribution Width 14.6 % (11.5-14.5)
[2023-10-02 07:19] LABS: ALT (SGPT) 14 U/L (8-55); AST (SGOT) 25 U/L (5-34); Albumin 3.5 g/dL (3.4-4.8); Alkaline Phosphatase 109 U/L (40-110); Anion Gap 21 mmol/L (10-20); BUN (Urea Nitrogen) 12 mg/dL (8.4-25.7); Bilirubin, Total 0.6 mg/dL (0.2-1.2); Calc. Creatinine Clearance 0 mL/min (70-130); Carbon Dioxide 19 mmol/L (23-31); Chloride 97 mmol/L (98-107); Estimated GFR 42; Globulin 4.1 g/dL (2.4-3.5); Glucose 108 mg/dL (83-110); Protein, Total 7.6 g/dL (5.8-8.1); Sodium 133 mmol/L (136-145)
[2023-10-02 07:20] LABS: Acetaminophen Less than 10 mcg/mL (10.0-30.0); Alcohol Less than 10.0 mg/dL (Less than 10); Salicylate Less than 8.0 mg/dL (15.0-30.0)
[2023-10-02] MEDS ORDERED: Metoclopramide HCl 10 MG (2 mL) VIAL ONE (07:51)
[2023-10-02] MEDS ORDERED: diphenhydrAMINE 50 MG/ML VIAL ONE (07:51)
[2023-10-02] MEDS ORDERED: Thiamine HCl 200 MG/2 ML VIAL ONE (08:12)
[2023-10-02 08:16] LABS: Troponin I Less than 0.010 ng/mL (< 0.028)
== END 2023-10-02 09:47 | disposition home or self-care (01) ==
LOC: ERS 05:58
DX: R51.9 Headache, unspecified (principal); I13.0 Hypertensive heart and chronic kidney disease with heart failure and stage 1 through stage 4 chronic kidney disease, or unspecified chronic kidney disease; N18.9 Chronic kidney disease, unspecified; G89.29 Other chronic pain; M54.2 Cervicalgia; J44.9 Chronic obstructive pulmonary disease, unspecified; F17.290 Nicotine dependence, other tobacco product, uncomplicated
CPT/HCPCS: 70450; 71045; 80053; 80307; 83880; 84484; 85025; 93005; 96365; 96375; 99285; J1200; J2765; J3411; 36415

== ENCOUNTER 2023-10-25 20:01 | Inpatient (IN) | payer MEDICARE, OTHER ==
[2023-10-25] MEDS ORDERED: diphenhydrAMINE 50 MG/ML VIAL ONE (20:23)
[2023-10-25] MEDS ORDERED: fentaNYL 50 mcg/mL 1 mL Vial ONE (20:23)
[2023-10-25] MEDS ORDERED: Metoclopramide HCl 10 MG (2 mL) VIAL ONE (20:23)
[2023-10-25 20:54] LABS: #Basophils Less than 0.03 10x3/uL (0.0-0.2); #Eosinphils Less than 0.03 10x3/uL (0.0-0.7); %Basophils 0.1 % (0.0-1.0); %Monocytes 8.3 % (0.0-10.0); %Neutrophils 81.2 % (42.0-75.0); Hematocrit 44.1 % (42.0-52.0); Hemoglobin 14.8 g/dL (14.0-18.0); Mean Corpuscular HGB CONC 33.6 g/dL (32.0-36.0); Mean Corpuscular Hemoglobin 31.3 pg (27.0-31.0); Mean Corpuscular Volume 93.2 fL (78.0-98.0); Mean Platelet Volume 9.1 fL (7.4-10.4); Platelet Count 238 10x3/uL (130-400); RBC Distribution Width 13.8 % (11.5-14.5); Red Blood Cell (RBC) Count 4.73 mill/uL (4.70-6.10)
[2023-10-25 21:06] LABS: Lipase 15 U/L (8-78)
[2023-10-25 21:09] LABS: Acetaminophen Less than 10 mcg/mL (10.0-30.0); Alcohol Less than 10.0 mg/dL (Less than 10); Salicylate Less than 8.0 mg/dL (15.0-30.0)
[2023-10-25 21:15] LABS: Actual Bicarbonate (HCO3a) 23.1 mEq/L (22-28); Base Excess (BEa) -2.5 mEq/L (-2.0 to +3.0); CO2 Tension 42.7 mmHg (35.0-45.0); Calcium, Ionized (arterial) 1.12 mmol/L (1.12-1.30); Carboxyhemoglobin (COHb) 4.4 gm% (0.0-3.0); Hematocrit-ABG 45 % (42.0-52.0); Hemoglobin (Hb) 15.4 g/dL (14.0-18.0); O2 Tension (PaO2), arterial 68.2 mmHg (> 60.0); Potassium - ABG Lab 4.11 mmol/L (3.70-5.30); pH, Arterial 7.351 (7.35-7.45)
[2023-10-25 21:24] LABS: Troponin I 0.013 ng/mL (< 0.028)
[2023-10-25 21:31] LABS: ALT (SGPT) 37 U/L (8-55); AST (SGOT) 163 U/L (5-34); Albumin 3.5 g/dL (3.4-4.8); Alkaline Phosphatase 94 U/L (40-110); Anion Gap 19 mmol/L (10-20); BUN (Urea Nitrogen) 19 mg/dL (8.4-25.7); Bilirubin, Total 0.4 mg/dL (0.2-1.2); Calc. Creatinine Clearance 0 mL/min (70-130); Carbon Dioxide 20 mmol/L (23-31); Chloride 99 mmol/L (98-107); Estimated GFR 37; Globulin 3.7 g/dL (2.4-3.5); Glucose 85 mg/dL (83-110); Potassium 4.3 mmol/L (3.5-5.1); Protein, Total 7.2 g/dL (5.8-8.1); Sodium 134 mmol/L (136-145)
[2023-10-25 21:43] LABS: Influenza A by NAA Not Detected (NotDetected); Influenza B by NAA Not Detected (NotDetected); SARS-CoV-2 NAA Rapid Test Not Detected (NotDetected)
[2023-10-25 21:45] LABS: CK (CPK) 11718 U/L (30-200)
[2023-10-25 21:48] LABS: Bacteria/HPF None Seen HPF (None Seen); Bilirubin Negative (Negative); Blood, Urine 3+ (Negative); CAUTI Indications for Culture Alt mental st,lethar; Clarity Clear (Clear); Glucose, Urine (Dipstick) Normal (Negative); Ketone, Urine Negative (Negative); Leukocyte Negative Leu/uL (Negative); Nitrite Negative (Negative); Protein, Urine (Dipstick) 20 mg/dL (Neg-Trace); RBC/HPF None Seen HPF (0-3); Specific Gravity, Urine 1.005 (1.002-1.036); Squamous Epithelial None Seen HPF (0-3); Urobilinogen Normal mg/dL (Less than 2); WBC/HPF 0-3 HPF (0-3)
[2023-10-25 21:49] LABS: Urine Culture Reflex No No
[2023-10-25 21:56] LABS: Amphetamine Not Detected (NotDetected); Barbiturates Screen Not Detected (NotDetected); Benzodiazepine Screen Not Detected (NotDetected); Cocaine Metabolite Screen Not Detected (NotDetected); Methadone Not Detected (NotDetected); Methamphetamine Not Detected (NotDetected); Opiate Screen Detected (NotDetected); Oxycodone Screen Not Detected (NotDetected); Phencyclidine (PCP) Not Detected (NotDetected); THC/Cannabinoid Screen Not Detected (NotDetected); Tricyclic Screen Not Detected (NotDetected)
[2023-10-25] MEDS ORDERED: Ipratropium/Albuterol 3 ML NEB ONE (22:41)
[2023-10-25] MEDS ORDERED: Albuterol 2.5 MG (0.5 mL) NEB ONE (22:41)
[2023-10-25] MEDS ORDERED: Lorazepam 1 MG TAB PO PRN (22:55)
[2023-10-25] MEDS ORDERED: Ondansetron ODT 4 MG TAB PO PRN ×2 (22:55)
[2023-10-25] MEDS ORDERED: Acetaminophen 650 MG Suppository PR PRN (22:55)
[2023-10-25] MEDS ORDERED: Ondansetron PF 4 MG/2 ML Vial IVP PRN (22:55)
[2023-10-25] MEDS ORDERED: Electrolyte Replacement Protocol FS SCH (23:00)
[2023-10-25] MEDS ORDERED: Magnesium 2 GM/50 ML BAG (IN WATER) ONE (23:14)
[2023-10-25] MEDS ORDERED: Thiamine HCl 200 MG/2 ML VIAL ONE (23:14)
[2023-10-25] MEDS ORDERED: Polyvinyl Alcohol 1.4%/Povidone 0.6% Opth Drops EA EYE PRN (23:37)
[2023-10-25] MEDS ORDERED: Ipratropium/Albuterol 3 ML NEB NEB PRN (23:58)
[2023-10-26 00:02] LABS: Magnesium 2.2 mg/dL (1.6-2.6); Phosphorus 3.8 mg/dL (2.3-4.7)
[2023-10-26 01:16] VITALS: BMI 29.7
[2023-10-26] MEDS: HYDROcodone/Acetaminophen 10/325 mg Tablet PO PRN (01:41)
[2023-10-26] MEDS: Lorazepam 1 MG TAB PO SCH (01:42)
[2023-10-26] MEDS ORDERED: Furosemide 40 MG (4 mL) VIAL SLOW IVP SCH (01:45)
[2023-10-26] MEDS: Sodium Chloride 0.9% 1,000 ML IV SCH ×2 (02:00→17:48)
[2023-10-26] MEDS: Fioricet 325/50/40 mg Tablet PO PRN (04:23)
[2023-10-26 05:54] LABS: #Basophils 0.03 10x3/uL (0.0-0.2); #Eosinphils Less than 0.03 10x3/uL (0.0-0.7); %Basophils 0.2 % (0.0-1.0); %Eosinophils 0.1 % (0.0-10.0); %Lymphocytes 17.1 % (21.0-51.0); %Monocytes 9.3 % (0.0-10.0); %Neutrophils 72.8 % (42.0-75.0); Hematocrit 39.9 % (42.0-52.0); Hemoglobin 13.2 g/dL (14.0-18.0); Mean Corpuscular HGB CONC 33.1 g/dL (32.0-36.0); Mean Corpuscular Hemoglobin 31.1 pg (27.0-31.0); Mean Corpuscular Volume 94.1 fL (78.0-98.0); Mean Platelet Volume 9.2 fL (7.4-10.4); Platelet Count 214 10x3/uL (130-400); RBC Distribution Width 13.9 % (11.5-14.5); Red Blood Cell (RBC) Count 4.24 mill/uL (4.70-6.10)
[2023-10-26 06:16] LABS: Anion Gap 11 mmol/L (10-20); BUN (Urea Nitrogen) 13 mg/dL (8.4-25.7); Calc. Creatinine Clearance 58 mL/min (70-130); Calcium 8.2 mg/dL (7.8-10.44); Carbon Dioxide 23 mmol/L (23-31); Chloride 108 mmol/L (98-107); Estimated GFR 53; Glucose 104 mg/dL (83-110); Potassium 3.6 mmol/L (3.5-5.1); Sodium 138 mmol/L (136-145)
[2023-10-26] MEDS: Levothyroxine Sodium 50 MCG TAB PO SCH (06:24)
[2023-10-26] MEDS ORDERED: Furosemide 40 MG TAB PO SCH ×2 (07:30)
[2023-10-26] MEDS: Ipratropium/Albuterol 3 ML NEB NEB SCH (08:06)
[2023-10-26] MEDS: Citalopram 20 MG TAB PO SCH (09:04)
[2023-10-26] MEDS: Fluticasone Propionate Nasal Spray 16 gm Bottle NASAL SCH (09:04)
[2023-10-26] MEDS: Heparin 5,000 UNITS/ML VIAL SC SCH (09:04)
[2023-10-26] MEDS: Multivit, Therapeutic 1 TAB PO SCH (09:04)
[2023-10-26] MEDS: Folic Acid 1 MG TAB PO SCH (09:04)
[2023-10-26] MEDS: Famotidine 20 MG TAB PO SCH (09:04)
[2023-10-26] MEDS: Famotidine/PF 20 mg/2ml Vial SLOW IVP SCH (09:04)
[2023-10-26] MEDS: Thiamine HCl 200 MG/2 ML VIAL SLOW IVP SCH ×2 (09:52→23:07)
[2023-10-26] MEDS: hydrALAZINE 20 MG/ML VIAL SLOW IVP PRN (17:48)
[2023-10-26] MEDS: Sterile Water 10 ML VIAL FS SCH (22:11)
[2023-10-26] MEDS: Ziprasidone 20 MG VIAL IM SCH (22:11)
[2023-10-27] MEDS ORDERED: Ziprasidone 20 MG VIAL IM SCH (00:45)
[2023-10-27] MEDS: Ziprasidone 20 MG VIAL IM SCH (00:49)
[2023-10-27] MEDS: Lorazepam 2 MG/ML VIAL SLOW IVP SCH (03:11)
[2023-10-27 05:42] LABS: #Basophils 0.05 10x3/uL (0.0-0.2); #Eosinphils Less than 0.03 10x3/uL (0.0-0.7); %Basophils 0.4 % (0.0-1.0); %Eosinophils 0.1 % (0.0-10.0); %Lymphocytes 11.4 % (21.0-51.0); %Monocytes 8.5 % (0.0-10.0); %Neutrophils 79.2 % (42.0-75.0); Hematocrit 41.2 % (42.0-52.0); Hemoglobin 13.7 g/dL (14.0-18.0); Mean Corpuscular HGB CONC 33.3 g/dL (32.0-36.0); Mean Corpuscular Hemoglobin 31.9 pg (27.0-31.0); Mean Platelet Volume 9.1 fL (7.4-10.4); Platelet Count 222 10x3/uL (130-400); RBC Distribution Width 14.2 % (11.5-14.5); Red Blood Cell (RBC) Count 4.29 mill/uL (4.70-6.10)
[2023-10-27 06:11] LABS: ALT (SGPT) 71 U/L (8-55); AST (SGOT) 291 U/L (5-34); Albumin 3.3 g/dL (3.4-4.8); Alkaline Phosphatase 86 U/L (40-110); Anion Gap 15 mmol/L (10-20); BUN (Urea Nitrogen) 8 mg/dL (8.4-25.7); Bilirubin, Total 0.6 mg/dL (0.2-1.2); Calc. Creatinine Clearance 84 mL/min (70-130); Calcium 8.6 mg/dL (7.8-10.44); Carbon Dioxide 21 mmol/L (23-31); Chloride 109 mmol/L (98-107); Estimated GFR 82; Globulin 3.2 g/dL (2.4-3.5); Glucose 66 mg/dL (83-110); Potassium 4.2 mmol/L (3.5-5.1); Protein, Total 6.5 g/dL (5.8-8.1); Sodium 141 mmol/L (136-145)
[2023-10-27 06:46] LABS: CK (CPK) 13496 U/L (30-200)
[2023-10-27] MEDS: Lorazepam 2 MG/ML VIAL IM PRN (09:20)
[2023-10-27] MEDS: Metoprolol Tartrate 25 MG TAB PO SCH (09:25)
[2023-10-27] MEDS: NIFEdipine XL 30 MG ER.TAB PO SCH (09:26)
[2023-10-27] MEDS ORDERED: Electrolyte Replacement Protocol FS PRN (10:30)
[2023-10-27] MEDS: Lorazepam 1 MG TAB PO PRN (13:28)
[2023-10-27] MEDS ORDERED: Dexmedetomidine In 0.9 % NaCl 100 ML IVPB SCH ×2 (13:45→14:00)
[2023-10-27] MEDS ORDERED: cloNIDine 0.1mg/24 Hour PATCH TD SCH (14:00)
[2023-10-27 14:44] LABS: Actual Bicarbonate (HCO3a) 19.2 mEq/L (22-28); Base Excess (BEa) -4.3 mEq/L (-2.0 to +3.0); CO2 Tension 31.3 mmHg (35.0-45.0); Calcium, Ionized (arterial) 1.14 mmol/L (1.12-1.30); Carboxyhemoglobin (COHb) 1.3 gm% (0.0-3.0); Hematocrit-ABG 44 % (42.0-52.0); Hemoglobin (Hb) 14.8 g/dL (14.0-18.0); Potassium - ABG Lab 3.97 mmol/L (3.70-5.30); pH, Arterial 7.405 (7.35-7.45)
[2023-10-27 14:45] LABS: O2 Tension (PaO2), arterial 54.9 mmHg (> 60.0); Puncture Site LRA
[2023-10-27 14:46] LABS: ALV-art Gradient 191.175 mmHg (0-20)
[2023-10-27] MEDS ORDERED: Enalaprilat Dihydrate 1.25 MG/ML VIAL SLOW IVP PRN ×2 (15:28→15:30)
[2023-10-27] MEDS: Sodium Chloride 0.9% 1,000 ML IV SCH ×2 (16:21→16:23)
[2023-10-27] MEDS: cefTRIAXone\\ROCEPHIN 2 GM in Sodium Chloride 0.9% 100 ML IVPB SCH (16:51)
[2023-10-27] MEDS: Furosemide 40 MG (4 mL) VIAL SLOW IVP SCH (16:51)
[2023-10-27] MEDS: Labetalol HCl 100 MG/20 ML VIAL SLOW IVP PRN (21:40)
[2023-10-27] MEDS ORDERED: Lorazepam 1 MG TAB PO PRN (22:55)
[2023-10-28] MEDS: hydrALAZINE 20 MG/ML VIAL SLOW IVP PRN (02:05)
[2023-10-28 06:45] LABS: #Basophils 0.04 10x3/uL (0.0-0.2); #Eosinphils Less than 0.03 10x3/uL (0.0-0.7); %Basophils 0.3 % (0.0-1.0); %Lymphocytes 11.8 % (21.0-51.0); %Monocytes 7.7 % (0.0-10.0); %Neutrophils 79.8 % (42.0-75.0); Hematocrit 45.4 % (42.0-52.0); Hemoglobin 15.1 g/dL (14.0-18.0); Mean Corpuscular HGB CONC 33.3 g/dL (32.0-36.0); Mean Corpuscular Hemoglobin 30.9 pg (27.0-31.0); Mean Platelet Volume 9.8 fL (7.4-10.4); Platelet Count 224 10x3/uL (130-400); RBC Distribution Width 14.3 % (11.5-14.5); Red Blood Cell (RBC) Count 4.88 mill/uL (4.70-6.10)
[2023-10-28 07:11] LABS: Anion Gap 23 mmol/L (10-20); BUN (Urea Nitrogen) 15 mg/dL (8.4-25.7); Calc. Creatinine Clearance 67 mL/min (70-130); Carbon Dioxide 14 mmol/L (23-31); Chloride 109 mmol/L (98-107); Estimated GFR 62; Glucose 87 mg/dL (83-110); Potassium 3.2 mmol/L (3.5-5.1); Sodium 143 mmol/L (136-145)
[2023-10-28 07:17] LABS: CK (CPK) 5817 U/L (30-200)
[2023-10-28] MEDS ORDERED: Potassium Chloride 20 MEQ TAB PO SCH (07:45)
[2023-10-28] MEDS ORDERED: Citalopram 20 MG TAB PO SCH (09:00)
[2023-10-28] MEDS: Potassium Chloride 20 MEQ in Premix 1 BAG IVPB SCH (10:50)
[2023-10-28 13:52] LABS: Potassium 3.5 mmol/L (3.5-5.1)
[2023-10-28] MEDS ORDERED: Thiamine 100 MG TAB PO SCH (21:00)
[2023-10-28] MEDS: Lorazepam 2 MG/ML VIAL SLOW IVP PRN (22:49)
[2023-10-28] MEDS ORDERED: Lorazepam 0.5 MG TAB PO PRN (22:55)
[2023-10-29 04:20] LABS: #Basophils 0.05 10x3/uL (0.0-0.2); %Basophils 0.4 % (0.0-1.0); %Eosinophils 0.3 % (0.0-10.0); %Lymphocytes 15.7 % (21.0-51.0); %Monocytes 10.9 % (0.0-10.0); %Neutrophils 72.2 % (42.0-75.0); Hematocrit 41.5 % (42.0-52.0); Hemoglobin 13.7 g/dL (14.0-18.0); Mean Corpuscular Hemoglobin 30.9 pg (27.0-31.0); Mean Corpuscular Volume 93.7 fL (78.0-98.0); Mean Platelet Volume 9.5 fL (7.4-10.4); Platelet Count 201 10x3/uL (130-400); RBC Distribution Width 14.2 % (11.5-14.5); Red Blood Cell (RBC) Count 4.43 mill/uL (4.70-6.10)
[2023-10-29 04:44] LABS: Anion Gap 16 mmol/L (10-20); BUN (Urea Nitrogen) 12 mg/dL (8.4-25.7); CK (CPK) 1526 U/L (30-200); Calc. Creatinine Clearance 93 mL/min (70-130); Calcium 8.4 mg/dL (7.8-10.44); Carbon Dioxide 14 mmol/L (23-31); Chloride 110 mmol/L (98-107); Estimated GFR 86; Glucose 87 mg/dL (83-110); Potassium 3.1 mmol/L (3.5-5.1); Sodium 137 mmol/L (136-145)
[2023-10-29] MEDS: Potassium Chloride 20 MEQ TAB PO SCH ×2 (06:13→14:14)
[2023-10-29] MEDS ORDERED: Thiamine 100 MG TAB PO SCH (09:00)
[2023-10-29 11:38] LABS: Potassium 3.1 mmol/L (3.5-5.1)
[2023-10-30 06:46] LABS: #Basophils 0.07 10x3/uL (0.0-0.2); %Basophils 0.8 % (0.0-1.0); %Lymphocytes 23.2 % (21.0-51.0); %Monocytes 13.9 % (0.0-10.0); %Neutrophils 58.7 % (42.0-75.0); Hematocrit 39.9 % (42.0-52.0); Hemoglobin 13.5 g/dL (14.0-18.0); Mean Corpuscular HGB CONC 33.8 g/dL (32.0-36.0); Mean Corpuscular Hemoglobin 30.9 pg (27.0-31.0); Mean Corpuscular Volume 91.3 fL (78.0-98.0); Mean Platelet Volume 9.8 fL (7.4-10.4); Platelet Count 220 10x3/uL (130-400); RBC Distribution Width 13.9 % (11.5-14.5); Red Blood Cell (RBC) Count 4.37 mill/uL (4.70-6.10)
[2023-10-30 07:10] LABS: Anion Gap 12 mmol/L (10-20); BUN (Urea Nitrogen) 9 mg/dL (8.4-25.7); Calc. Creatinine Clearance 102 mL/min (70-130); Calcium 8.2 mg/dL (7.8-10.44); Carbon Dioxide 18 mmol/L (23-31); Chloride 108 mmol/L (98-107); Estimated GFR 89; Glucose 76 mg/dL (83-110); Sodium 135 mmol/L (136-145)
[2023-10-30] MEDS ORDERED: Iopamidol-370 76% 500 ML MDV (1 ML CHARGE) ONE (11:03)
[2023-10-30] MEDS: Calcium Carbonate 500 MG ChewTAB PO PRN (11:17)
[2023-10-30] MEDS: Potassium Bicarbonate/Cit Ac 20 MEQ TAB PO SCH (11:17)
[2023-10-30] MEDS: Pantoprazole DR 40 MG TAB PO SCH (12:03)
[2023-10-31] MEDS: diphenhydrAMINE 25 MG CAP PO PRN (01:15)
[2023-10-31] MEDS: Acetaminophen 325 MG TAB PO PRN (01:15)
[2023-10-31 05:55] LABS: #Basophils 0.04 10x3/uL (0.0-0.2); %Basophils 0.5 % (0.0-1.0); %Eosinophils 3.7 % (0.0-10.0); %Lymphocytes 28.1 % (21.0-51.0); %Monocytes 15.4 % (0.0-10.0); %Neutrophils 51.7 % (42.0-75.0); Hemoglobin 13.5 g/dL (14.0-18.0); Mean Corpuscular HGB CONC 33.8 g/dL (32.0-36.0); Mean Corpuscular Hemoglobin 31.5 pg (27.0-31.0); Mean Corpuscular Volume 93.2 fL (78.0-98.0); Platelet Count 228 10x3/uL (130-400); RBC Distribution Width 13.7 % (11.5-14.5); Red Blood Cell (RBC) Count 4.29 mill/uL (4.70-6.10)
[2023-10-31 06:21] LABS: Anion Gap 14 mmol/L (10-20); BUN (Urea Nitrogen) 7 mg/dL (8.4-25.7); Calc. Creatinine Clearance 103 mL/min (70-130); Calcium 8.2 mg/dL (7.8-10.44); Carbon Dioxide 19 mmol/L (23-31); Chloride 105 mmol/L (98-107); Estimated GFR 89; Glucose 74 mg/dL (83-110); Potassium 3.2 mmol/L (3.5-5.1); Sodium 135 mmol/L (136-145)
[2023-10-31 08:04] VITALS: BP 164/75; TEMP 98.2
[2023-10-31] MEDS: Pantoprazole DR 40 MG TAB PO SCH (08:16)
[2023-10-31] MEDS: Potassium Chloride 20 MEQ TAB PO SCH (08:16)
[2023-10-31 11:04] VITALS: BMI 29.7
[2023-10-31] MEDS: Hydrocortisone 1% Cream 30 GM TUBE TOP PRN (12:27)
== END 2023-10-31 14:50 | DRG 564 ==
LOC: ERS 20:01 → MSONC 23:27 → IMCU/EMU 10-27 14:21 → T4-B 10-29 19:48
PROVIDERS: ADMIT Internal Medicine; ATTEND Family Medicine
PROC: 4A133R1 Monitoring of Arterial Saturation, Peripheral, Percutaneous Approach (ICD-10-PCS; principal; 2023-10-25)
DX: T79.6XXA Traumatic ischemia of muscle, initial encounter (principal); G93.41 Metabolic encephalopathy; I13.0 Hypertensive heart and chronic kidney disease with heart failure and stage 1 through stage 4 chronic kidney disease, or unspecified chronic kidney disease; I50.32 Chronic diastolic (congestive) heart failure; N17.9 Acute kidney failure, unspecified; F10.139 Alcohol abuse with withdrawal, unspecified; E87.20 Acidosis, unspecified; W18.30XA Fall on same level, unspecified, initial encounter; E78.5 Hyperlipidemia, unspecified; F11.10 Opioid abuse, uncomplicated; R53.81 Other malaise; I71.40 Abdominal aortic aneurysm, without rupture, unspecified; N18.30 Chronic kidney disease, stage 3 unspecified; Z88.5 Allergy status to narcotic agent; Z79.899 Other long term (current) drug therapy; Z79.82 Long term (current) use of aspirin; Z90.49 Acquired absence of other specified parts of digestive tract
CPT/HCPCS: 36415; 36416; 36600; 70450; 71045; 72125; 74177; 80048; 80053; 80306; 80307; 81001; 82140; 82550; 82805; 83605; 83690; 83735; 83880; 84100; 84484; 85025; 85379; 87040; 87149; 93005; 94640; 96374; 96375; J0360; J0696; J1200; J1644; J1940; J2060; J2765; J3010; J3411; J3475; J3480; J3486; J3490; J7050; J7611; J7620; Q9967; S0028

== ENCOUNTER 2025-02-01 17:35 | Inpatient (IN) | payer MEDICARE, OTHER ==
[2025-02-01] MEDS ORDERED: Ondansetron PF 4 MG/2 ML Vial ONE (17:55)
[2025-02-01] MEDS ORDERED: KETAMINE 100 MG/ML (5ML VIAL) ONE (17:55)
[2025-02-01 18:08] LABS: #Basophils 0.08 10x3/uL (0.0-0.2); #Eosinophils 0.31 10x3/uL (0.0-0.7); #Monocytes 1.04 10x3/uL (0.11-0.59); #Neutrophils 6.45 10x3/uL (1.40-6.50); %Basophils 0.8 % (0.0-1.0); %Eosinophils 3.2 % (0.0-10.0); %Lymphocytes 17.5 % (21.0-51.0); %Monocytes 10.8 % (0.0-10.0); %Neutrophils 67.4 % (42.0-75.0); Hematocrit 32.2 % (42.0-52.0); Hemoglobin 9.1 g/dL (14.0-18.0); Mean Corpuscular Hemoglobin 20.4 pg (27.0-31.0); Mean Corpuscular Volume 72.0 fL (78.0-98.0); Platelet Count 351 10x3/uL (130-400); Red Blood Cell (RBC) Count 4.47 mill/uL (4.70-6.10); White Blood Cell (WBC) Count 9.59 10x3/uL (4.8-10.8)
[2025-02-01 18:22] LABS: ALT (SGPT) 13 U/L (Less than 45); AST (SGOT) 28 U/L (11-34); Albumin 3.4 g/dL (3.1-4.5); Alkaline Phosphatase 99 U/L (40-110); Anion Gap 15 mmol/L (10-20); BUN (Urea Nitrogen) 18 mg/dL (8.4-25.7); Bilirubin, Total 0.4 mg/dL (0.3-1.2); Calc. Creatinine Clearance 0 mL/min (70-130); Calcium 8.6 mg/dL (7.8-10.44); Carbon Dioxide 29 mmol/L (23-31); Chloride 95 mmol/L (98-107); Globulin 3.7 g/dL (2.4-3.5); Glucose 107 mg/dL (83-110); Potassium 3.4 mmol/L (3.5-5.1); Sodium 136 mmol/L (136-145)
[2025-02-01] MEDS ORDERED: Magnesium 2 GM/50 ML BAG (IN WATER) ONE (20:04)
[2025-02-01] MEDS ORDERED: Dextrose 50% Abboject 50 ML SYRINGE SLOW IVP PRN (20:34)
[2025-02-01] MEDS ORDERED: Glucagon 1 MG/ML KIT IM PRN (20:34)
[2025-02-01] MEDS ORDERED: Acetaminophen 325 MG TAB PO PRN (20:34)
[2025-02-01] MEDS ORDERED: Electrolyte Replacement Protocol 1 EACH FS SCH (21:15)
[2025-02-01 21:23] LABS: Bacteria/HPF None Seen HPF (None Seen); CAUTI Indications for Culture Dysuria,urgency,freq; Glucose, Urine (Dipstick) 100 mg/dL (Negative); Leukocyte Negative Leu/uL (Negative); Protein, Urine (Dipstick) Negative (Neg-Trace); RBC/HPF 0-3 HPF (0-3); Specific Gravity, Urine 1.009 (1.002-1.036); WBC/HPF None Seen HPF (0-3)
[2025-02-01 21:27] LABS: Urine Culture Reflex No No
[2025-02-01 22:47] LABS: #Basophils 0.07 10x3/uL (0.0-0.2); #Eosinophils 0.29 10x3/uL (0.0-0.7); #Monocytes 1.43 10x3/uL (0.11-0.59); #Neutrophils 8.96 10x3/uL (1.40-6.50); %Basophils 0.5 % (0.0-1.0); %Eosinophils 2.2 % (0.0-10.0); %Lymphocytes 17.7 % (21.0-51.0); %Monocytes 10.9 % (0.0-10.0); %Neutrophils 68.2 % (42.0-75.0); Hematocrit 31.8 % (42.0-52.0); Hemoglobin 8.9 g/dL (14.0-18.0); Mean Corpuscular Hemoglobin 20.3 pg (27.0-31.0); Mean Corpuscular Volume 72.6 fL (78.0-98.0); Platelet Count 351 10x3/uL (130-400); Red Blood Cell (RBC) Count 4.38 mill/uL (4.70-6.10); White Blood Cell (WBC) Count 13.14 10x3/uL (4.8-10.8)
[2025-02-01] MEDS: Benzocaine/Menthol 1 LOZ LOZ PO PRN (22:49)
[2025-02-01] MEDS: Acetaminophen 325 MG TAB PO SCH (22:49)
[2025-02-01] MEDS: Potassium Chloride 20 MEQ in Premix 1 BAG IVPB SCH (22:50)
[2025-02-01] MEDS: Furosemide 40 MG (4 mL) VIAL SLOW IVP SCH (22:50)
[2025-02-01 23:14] LABS: ALT (SGPT) 12 U/L (Less than 45); AST (SGOT) 24 U/L (11-34); Albumin 3.4 g/dL (3.1-4.5); Alkaline Phosphatase 97 U/L (40-110); Anion Gap 13 mmol/L (10-20); BUN (Urea Nitrogen) 16 mg/dL (8.4-25.7); Bilirubin, Direct 0.2 mg/dL (0.1-0.3); Bilirubin, Total 0.4 mg/dL (0.3-1.2); Calc. Creatinine Clearance 0 mL/min (70-130); Calcium 8.3 mg/dL (7.8-10.44); Carbon Dioxide 29 mmol/L (23-31); Chloride 95 mmol/L (98-107); Globulin 3.5 g/dL (2.4-3.5); Glucose 100 mg/dL (83-110); Magnesium 2.2 mg/dL (1.6-2.6); Potassium 3.3 mmol/L (3.5-5.1); Sodium 134 mmol/L (136-145)
[2025-02-01] MEDS: Ipratropium Bromide 2.5 ml Neb NEB SCH (23:30)
[2025-02-01] MEDS: Methocarbamol 500 MG TAB PO SCH ×2 (23:58)
[2025-02-01] MEDS: Gabapentin 300 MG CAP PO SCH (23:58)
[2025-02-02 04:44] LABS: #Basophils 0.08 10x3/uL (0.0-0.2); #Eosinophils 0.33 10x3/uL (0.0-0.7); #Monocytes 1.42 10x3/uL (0.11-0.59); #Neutrophils 5.76 10x3/uL (1.40-6.50); %Basophils 0.8 % (0.0-1.0); %Eosinophils 3.4 % (0.0-10.0); %Lymphocytes 22.6 % (21.0-51.0); %Monocytes 14.4 % (0.0-10.0); %Neutrophils 58.5 % (42.0-75.0); Hematocrit 30.2 % (42.0-52.0); Hemoglobin 8.4 g/dL (14.0-18.0); Mean Corpuscular Hemoglobin 20.3 pg (27.0-31.0); Mean Corpuscular Volume 72.9 fL (78.0-98.0); Platelet Count 334 10x3/uL (130-400); Red Blood Cell (RBC) Count 4.14 mill/uL (4.70-6.10); White Blood Cell (WBC) Count 9.84 10x3/uL (4.8-10.8)
[2025-02-02 05:21] LABS: Anion Gap 11 mmol/L (10-20); BUN (Urea Nitrogen) 15 mg/dL (8.4-25.7); Calc. Creatinine Clearance 46 mL/min (70-130); Calcium 8.2 mg/dL (7.8-10.44); Carbon Dioxide 31 mmol/L (23-31); Chloride 96 mmol/L (98-107); Glucose 88 mg/dL (83-110); Potassium 3.5 mmol/L (3.5-5.1); Sodium 134 mmol/L (136-145)
[2025-02-02] MEDS ORDERED: Methocarbamol 500 MG TAB PO SCH (09:00)
[2025-02-02] MEDS: Furosemide 40 MG (4 mL) VIAL SLOW IVP SCH (09:15)
[2025-02-02 09:19] LABS: Actual Bicarbonate (HCO3a) 29.6 mEq/L (22-28); Base Excess (BEa) 3.2 mEq/L (-2.0 to +3.0); CO2 Tension 54.3 mmHg (35.0-45.0); Calcium, Ionized (arterial) 1.08 mmol/L (1.12-1.30); Hematocrit-ABG 31 % (42.0-52.0); Hemoglobin (Hb) 10.5 g/dL (14.0-18.0); Potassium - ABG Lab 3.81 mmol/L (3.70-5.30); pH, Arterial 7.354 (7.35-7.45)
[2025-02-02] MEDS: Furosemide 40 MG (4 mL) VIAL ONE ×2 (12:23)
[2025-02-02] MEDS: Folic Acid 1 MG TAB PO SCH (15:59)
[2025-02-02] MEDS: Multivit, Therapeutic 1 TAB PO SCH (16:02)
[2025-02-02] MEDS: Acetaminophen/Codeine 30-300mg Tablet PO PRN (17:20)
[2025-02-02] MEDS: Phenol 177 ML BOT PO PRN (22:09)
[2025-02-03 05:41] LABS: #Basophils Less than 0.03 10x3/uL (0.0-0.2); #Eosinophils Less than 0.03 10x3/uL (0.0-0.7); #Monocytes 0.75 10x3/uL (0.11-0.59); #Neutrophils 9.18 10x3/uL (1.40-6.50); %Basophils 0.2 % (0.0-1.0); %Eosinophils 0.0 % (0.0-10.0); %Lymphocytes 12.3 % (21.0-51.0); %Monocytes 6.6 % (0.0-10.0); %Neutrophils 80.3 % (42.0-75.0); Hematocrit 31.1 % (42.0-52.0); Hemoglobin 8.5 g/dL (14.0-18.0); Mean Corpuscular Hemoglobin 20.3 pg (27.0-31.0); Mean Corpuscular Volume 74.4 fL (78.0-98.0); Platelet Count 347 10x3/uL (130-400); Red Blood Cell (RBC) Count 4.18 mill/uL (4.70-6.10); White Blood Cell (WBC) Count 11.43 10x3/uL (4.8-10.8)
[2025-02-03 05:49] LABS: ALT (SGPT) 13 U/L (Less than 45); AST (SGOT) 28 U/L (11-34); Albumin 3.2 g/dL (3.1-4.5); Alkaline Phosphatase 93 U/L (40-110); Anion Gap 17 mmol/L (10-20); BUN (Urea Nitrogen) 18 mg/dL (8.4-25.7); Bilirubin, Total 0.4 mg/dL (0.3-1.2); Calc. Creatinine Clearance 48 mL/min (70-130); Calcium 8.6 mg/dL (7.8-10.44); Carbon Dioxide 31 mmol/L (23-31); Chloride 100 mmol/L (98-107); Globulin 3.9 g/dL (2.4-3.5); Glucose 142 mg/dL (83-110); Magnesium 2.3 mg/dL (1.6-2.6); Potassium 4.2 mmol/L (3.5-5.1); Sodium 144 mmol/L (136-145)
[2025-02-03 09:49] LABS: Actual Bicarbonate (HCO3a) 32.8 mEq/L (22-28); Base Excess (BEa) 6.4 mEq/L (-2.0 to +3.0); CO2 Tension 57.8 mmHg (35.0-45.0); Calcium, Ionized (arterial) 1.12 mmol/L (1.12-1.30); Hematocrit-ABG 28 % (42.0-52.0); Hemoglobin (Hb) 9.6 g/dL (14.0-18.0); O2 Tension (PaO2), arterial 62.3 mmHg (> 60.0); Potassium - ABG Lab 4.19 mmol/L (3.70-5.30); pH, Arterial 7.372 (7.35-7.45)
[2025-02-03 09:51] LABS: ALV-art Gradient 221.950 mmHg (0-20); Puncture Site RR
[2025-02-03] MEDS: hydrALAZINE 20 MG/ML VIAL SLOW IVP PRN (13:52)
[2025-02-03] MEDS ORDERED: Ipratropium Bromide 2.5 ml Neb ONE (14:14)
[2025-02-03] MEDS: NIFEdipine XL 30 MG ER.TAB PO SCH (14:20)
[2025-02-03 14:32] LABS: O2 Tension (PaO2), arterial 52.5 mmHg (> 60.0)
[2025-02-03] MEDS: Furosemide 40 MG (4 mL) VIAL SLOW IVP SCH (16:29)
[2025-02-04] MEDS: NIFEdipine XL 30 MG ER.TAB PO SCH (10:08)
[2025-02-04] MEDS: PNEUMOC 20-VAL CONJ-DIP CRM/PF 0.5 ML SYRINGE IM ONE (10:19)
[2025-02-04 15:46] LABS: Anion Gap 12 mmol/L (10-20); BUN (Urea Nitrogen) 14 mg/dL (8.4-25.7); Calc. Creatinine Clearance 73 mL/min (70-130); Calcium 8.7 mg/dL (7.8-10.44); Carbon Dioxide 32 mmol/L (23-31); Chloride 101 mmol/L (98-107); Glucose 127 mg/dL (83-110); Potassium 4.1 mmol/L (3.5-5.1); Sodium 141 mmol/L (136-145)
[2025-02-04] MEDS: Heparin 5,000 UNITS/ML VIAL SC SCH (21:40)
[2025-02-05 07:05] LABS: #Basophils Less than 0.03 10x3/uL (0.0-0.2); #Eosinophils Less than 0.03 10x3/uL (0.0-0.7); #Monocytes 0.35 10x3/uL (0.11-0.59); #Neutrophils 10.81 10x3/uL (1.40-6.50); %Basophils 0.1 % (0.0-1.0); %Eosinophils 0.0 % (0.0-10.0); %Lymphocytes 10.0 % (21.0-51.0); %Monocytes 2.8 % (0.0-10.0); %Neutrophils 86.5 % (42.0-75.0); Hematocrit 32.9 % (42.0-52.0); Hemoglobin 9.3 g/dL (14.0-18.0); Mean Corpuscular Hemoglobin 20.8 pg (27.0-31.0); Mean Corpuscular Volume 73.4 fL (78.0-98.0); Platelet Count 391 10x3/uL (130-400); Red Blood Cell (RBC) Count 4.48 mill/uL (4.70-6.10); White Blood Cell (WBC) Count 12.49 10x3/uL (4.8-10.8)
[2025-02-05 07:22] LABS: Anion Gap 12 mmol/L (10-20); BUN (Urea Nitrogen) 14 mg/dL (8.4-25.7); Calc. Creatinine Clearance 75 mL/min (70-130); Calcium 8.7 mg/dL (7.8-10.44); Carbon Dioxide 28 mmol/L (23-31); Chloride 104 mmol/L (98-107); Glucose 129 mg/dL (83-110); Potassium 4.6 mmol/L (3.5-5.1); Sodium 139 mmol/L (136-145)
[2025-02-05] MEDS ORDERED: fentaNYL PF 100 MCG/2 ML SYRINGE ONE (07:23)
[2025-02-05] MEDS ORDERED: PROPOFOL 20 ML ONE (07:23)
[2025-02-05] MEDS ORDERED: Lidocaine 1% PF 5 ML VIAL ONE (07:23)
[2025-02-05] MEDS ORDERED: CEFAZOLIN 2 GM VIAL ONE (08:06)
[2025-02-05] MEDS ORDERED: Ondansetron PF 4 MG/2 ML Vial ONE (08:50)
[2025-02-05] MEDS ORDERED: Ipratropium Bromide 2.5 ml Neb NEB PRN (10:51)
[2025-02-05] MEDS: Gabapentin 300 MG CAP PO SCH (20:37)
[2025-02-06 04:45] LABS: #Basophils Less than 0.03 10x3/uL (0.0-0.2); #Eosinophils Less than 0.03 10x3/uL (0.0-0.7); #Monocytes 0.54 10x3/uL (0.11-0.59); #Neutrophils 11.45 10x3/uL (1.40-6.50); %Basophils 0.1 % (0.0-1.0); %Eosinophils 0.0 % (0.0-10.0); %Lymphocytes 8.7 % (21.0-51.0); %Monocytes 4.1 % (0.0-10.0); %Neutrophils 86.8 % (42.0-75.0); Hematocrit 33.0 % (42.0-52.0); Hemoglobin 9.1 g/dL (14.0-18.0); Mean Corpuscular Hemoglobin 20.5 pg (27.0-31.0); Mean Corpuscular Volume 74.3 fL (78.0-98.0); Platelet Count 411 10x3/uL (130-400); Red Blood Cell (RBC) Count 4.44 mill/uL (4.70-6.10); White Blood Cell (WBC) Count 13.19 10x3/uL (4.8-10.8)
[2025-02-06 04:53] LABS: Anion Gap 13 mmol/L (10-20); BUN (Urea Nitrogen) 20 mg/dL (8.4-25.7); Calc. Creatinine Clearance 78 mL/min (70-130); Calcium 8.5 mg/dL (7.8-10.44); Carbon Dioxide 25 mmol/L (23-31); Chloride 107 mmol/L (98-107); Glucose 130 mg/dL (83-110); Potassium 4.2 mmol/L (3.5-5.1); Sodium 141 mmol/L (136-145)
[2025-02-06 05:52] VITALS: BMI 32.8
[2025-02-06] MEDS: Cyanocobalamin (Vitamin B-12) 1,000 MCG TAB PO SCH (16:24)
[2025-02-06] MEDS: Citalopram 20 MG TAB PO SCH (16:24)
[2025-02-06] MEDS: Aspirin 81 mg Enteric Coated Tablet PO SCH (16:24)
[2025-02-06] MEDS: Heparin 5,000 UNITS/ML VIAL SC SCH (16:25)
[2025-02-06] MEDS: NIFEdipine XL 30 MG ER.TAB PO SCH (22:48)
[2025-02-06] MEDS: Mirtazapine 15 MG TAB PO SCH (22:48)
[2025-02-07] MEDS: HYDROcodone/Acetaminophen 5/325 mg Tablet PO PRN (05:45)
[2025-02-07] MEDS: Ondansetron PF 4 MG/2 ML Vial IVP PRN (08:02)
[2025-02-07 10:26] LABS: #Basophils 0.03 10x3/uL (0.0-0.2); #Eosinophils Less than 0.03 10x3/uL (0.0-0.7); #Monocytes 1.14 10x3/uL (0.11-0.59); #Neutrophils 10.80 10x3/uL (1.40-6.50); %Basophils 0.2 % (0.0-1.0); %Eosinophils 0.1 % (0.0-10.0); %Lymphocytes 12.3 % (21.0-51.0); %Monocytes 8.3 % (0.0-10.0); %Neutrophils 78.4 % (42.0-75.0); Hematocrit 36.3 % (42.0-52.0); Hemoglobin 10.0 g/dL (14.0-18.0); Mean Corpuscular Hemoglobin 20.6 pg (27.0-31.0); Mean Corpuscular Volume 74.7 fL (78.0-98.0); Platelet Count 454 10x3/uL (130-400); Red Blood Cell (RBC) Count 4.86 mill/uL (4.70-6.10); White Blood Cell (WBC) Count 13.77 10x3/uL (4.8-10.8)
[2025-02-07 10:38] LABS: Anion Gap 15 mmol/L (10-20); BUN (Urea Nitrogen) 21 mg/dL (8.4-25.7); Calc. Creatinine Clearance 78 mL/min (70-130); Calcium 8.6 mg/dL (7.8-10.44); Carbon Dioxide 21 mmol/L (23-31); Chloride 108 mmol/L (98-107); Glucose 114 mg/dL (83-110); Potassium 4.0 mmol/L (3.5-5.1); Sodium 140 mmol/L (136-145)
[2025-02-07] MEDS: Dapagliflozin Propanediol 10 MG TAB PO SCH (10:40)
[2025-02-07] MEDS: Ketorolac Tromethamine 30 MG (1 mL) VIAL IVP PRN (10:43)
[2025-02-07 11:14] LABS: Anisocytosis SLIGHT = 6-15 cells HPF (0-5); Burr Cells SLIGHT = 2-5 cells HPF (0-1); Microcytosis SLIGHT = 6-15 cells HPF (0-5); Platelet Adequacy Comment Platelets Increased; Polychromasia SLIGHT = 2-3 cells HPF (0-2)
[2025-02-08 06:26] LABS: #Basophils Less than 0.03 10x3/uL (0.0-0.2); #Eosinophils Less than 0.03 10x3/uL (0.0-0.7); #Monocytes 0.59 10x3/uL (0.11-0.59); #Neutrophils 9.90 10x3/uL (1.40-6.50); %Basophils 0.1 % (0.0-1.0); %Eosinophils 0.0 % (0.0-10.0); %Lymphocytes 16.1 % (21.0-51.0); %Monocytes 4.7 % (0.0-10.0); %Neutrophils 78.6 % (42.0-75.0); Hematocrit 31.8 % (42.0-52.0); Hemoglobin 9.0 g/dL (14.0-18.0); Mean Corpuscular Hemoglobin 20.5 pg (27.0-31.0); Mean Corpuscular Volume 72.4 fL (78.0-98.0); Platelet Count 405 10x3/uL (130-400); Red Blood Cell (RBC) Count 4.39 mill/uL (4.70-6.10); White Blood Cell (WBC) Count 12.58 10x3/uL (4.8-10.8)
[2025-02-08 06:31] LABS: Anion Gap 14 mmol/L (10-20); BUN (Urea Nitrogen) 21 mg/dL (8.4-25.7); Calc. Creatinine Clearance 77 mL/min (70-130); Calcium 8.0 mg/dL (7.8-10.44); Carbon Dioxide 22 mmol/L (23-31); Chloride 104 mmol/L (98-107); Glucose 129 mg/dL (83-110); Potassium 3.8 mmol/L (3.5-5.1); Sodium 136 mmol/L (136-145)
[2025-02-08 15:06] VITALS: BMI 33.0
[2025-02-08] MEDS: Calcium Carbonate 500 MG ChewTAB PO PRN (23:41)
[2025-02-08] MEDS: HYDROcodone/Acetaminophen 10/325 mg Tablet PO PRN (23:41)
[2025-02-09] MEDS: Melatonin 3 MG TAB PO SCH (00:42)
[2025-02-09] MEDS ORDERED: Iopamidol 370 76% 100 ML VIAL ONE (14:08)
[2025-02-09] MEDS: Pantoprazole 40 MG DR.TAB PO SCH ×2 (15:15→20:46)
[2025-02-09] MEDS: Dicyclomine 10 MG CAP PO SCH ×2 (15:16→16:55)
[2025-02-09 15:51] LABS: #Basophils 0.04 10x3/uL (0.0-0.2); #Eosinophils 0.06 10x3/uL (0.0-0.7); #Monocytes 0.88 10x3/uL (0.11-0.59); #Neutrophils 8.85 10x3/uL (1.40-6.50); %Basophils 0.3 % (0.0-1.0); %Eosinophils 0.5 % (0.0-10.0); %Lymphocytes 19.7 % (21.0-51.0); %Monocytes 7.1 % (0.0-10.0); %Neutrophils 71.9 % (42.0-75.0); Hematocrit 35.3 % (42.0-52.0); Hemoglobin 9.9 g/dL (14.0-18.0); Mean Corpuscular Hemoglobin 20.4 pg (27.0-31.0); Mean Corpuscular Volume 72.6 fL (78.0-98.0); Platelet Count 464 10x3/uL (130-400); Red Blood Cell (RBC) Count 4.86 mill/uL (4.70-6.10); White Blood Cell (WBC) Count 12.32 10x3/uL (4.8-10.8)
[2025-02-09 16:18] LABS: Anisocytosis SLIGHT = 6-15 cells HPF (0-5); Macrocytosis SLIGHT = 6-15 cells HPF (0-5); Ovalocytes MODERATE= 6-15 cells HPF (0-1); Platelet Adequacy Comment Platelets Increased; Polychromasia MODERATE = 3-4 cells HPF (0-2); Schistocytes SLIGHT = 2-5 cells HPF (0-1)
[2025-02-09 16:33] LABS: ALT (SGPT) 63 U/L (Less than 45); AST (SGOT) 62 U/L (11-34); Albumin 2.8 g/dL (3.1-4.5); Alkaline Phosphatase 81 U/L (40-110); Bilirubin, Direct 0.2 mg/dL (0.1-0.3); Bilirubin, Total 0.4 mg/dL (0.3-1.2); Lipase 94 U/L (8-78)
[2025-02-10] MEDS: Methocarbamol 500 MG TAB PO PRN (03:54)
[2025-02-10] MEDS ORDERED: Pantoprazole 40 MG DR.TAB PO SCH (09:00)
[2025-02-10] MEDS: HYDROcodone/Acetaminophen 5/325 mg Tablet PO PRN (12:19)
[2025-02-10 17:01] LABS: #Basophils 0.06 10x3/uL (0.0-0.2); #Eosinophils 0.31 10x3/uL (0.0-0.7); #Monocytes 1.04 10x3/uL (0.11-0.59); #Neutrophils 7.96 10x3/uL (1.40-6.50); %Basophils 0.5 % (0.0-1.0); %Eosinophils 2.6 % (0.0-10.0); %Lymphocytes 22.0 % (21.0-51.0); %Monocytes 8.6 % (0.0-10.0); %Neutrophils 65.8 % (42.0-75.0); Hematocrit 33.4 % (42.0-52.0); Hemoglobin 9.3 g/dL (14.0-18.0); Mean Corpuscular Hemoglobin 20.6 pg (27.0-31.0); Mean Corpuscular Volume 73.9 fL (78.0-98.0); Platelet Count 432 10x3/uL (130-400); Red Blood Cell (RBC) Count 4.52 mill/uL (4.70-6.10); White Blood Cell (WBC) Count 12.09 10x3/uL (4.8-10.8)
[2025-02-10 17:16] LABS: ALT (SGPT) 42 U/L (Less than 45); AST (SGOT) 30 U/L (11-34); Albumin 2.8 g/dL (3.1-4.5); Alkaline Phosphatase 73 U/L (40-110); Anion Gap 10 mmol/L (10-20); BUN (Urea Nitrogen) 13 mg/dL (8.4-25.7); Bilirubin, Total 0.2 mg/dL (0.3-1.2); Calc. Creatinine Clearance 59 mL/min (70-130); Calcium 8.4 mg/dL (7.8-10.44); Carbon Dioxide 21 mmol/L (23-31); Chloride 109 mmol/L (98-107); Globulin 3.5 g/dL (2.4-3.5); Glucose 113 mg/dL (83-110); Lipase 89 U/L (8-78); Potassium 3.7 mmol/L (3.5-5.1); Sodium 136 mmol/L (136-145)
[2025-02-11 06:21] LABS: #Basophils 0.05 10x3/uL (0.0-0.2); #Eosinophils 0.45 10x3/uL (0.0-0.7); #Monocytes 1.10 10x3/uL (0.11-0.59); #Neutrophils 7.30 10x3/uL (1.40-6.50); %Basophils 0.4 % (0.0-1.0); %Eosinophils 3.8 % (0.0-10.0); %Lymphocytes 23.8 % (21.0-51.0); %Monocytes 9.3 % (0.0-10.0); %Neutrophils 62.0 % (42.0-75.0); Hematocrit 32.0 % (42.0-52.0); Hemoglobin 8.9 g/dL (14.0-18.0); Mean Corpuscular Hemoglobin 20.5 pg (27.0-31.0); Mean Corpuscular Volume 73.7 fL (78.0-98.0); Platelet Count 421 10x3/uL (130-400); Red Blood Cell (RBC) Count 4.34 mill/uL (4.70-6.10); White Blood Cell (WBC) Count 11.78 10x3/uL (4.8-10.8)
[2025-02-11 06:47] LABS: Anion Gap 15 mmol/L (10-20); BUN (Urea Nitrogen) 11 mg/dL (8.4-25.7); Calc. Creatinine Clearance 65 mL/min (70-130); Calcium 8.1 mg/dL (7.8-10.44); Carbon Dioxide 20 mmol/L (23-31); Chloride 108 mmol/L (98-107); Glucose 92 mg/dL (83-110); Potassium 3.7 mmol/L (3.5-5.1); Sodium 139 mmol/L (136-145)
[2025-02-11 11:33] VITALS: BP 150/63; TEMP 98.5
== END 2025-02-11 14:15 | DRG 492 ==
LOC: ERS 17:35 → ERHOLD 20:42 → 2NO 21:52 → CCU 02-03 12:18 → IMCU/EMU 02-04 07:46 → SURG A 02-10 02:45
PROVIDERS: ADMIT Surgery; ATTEND Internal Medicine
PROC: 4A133R1 Monitoring of Arterial Saturation, Peripheral, Percutaneous Approach (ICD-10-PCS; 2025-02-02)
PROC: 0T9B70Z Drainage of Bladder with Drainage Device, Via Natural or Artificial Opening (ICD-10-PCS; 2025-02-02)
PROC: 0QSJ04Z Reposition Right Fibula with Internal Fixation Device, Open Approach (ICD-10-PCS; principal; 2025-02-05)
PROC: 3E03329 Introduction of Other Anti-infective into Peripheral Vein, Percutaneous Approach (ICD-10-PCS; 2025-02-05)
PROC: 05HY33Z Insertion of Infusion Device into Upper Vein, Percutaneous Approach (ICD-10-PCS; 2025-02-06)
DX: S82.851A Displaced trimalleolar fracture of right lower leg, initial encounter for closed fracture (principal); G93.41 Metabolic encephalopathy; J96.01 Acute respiratory failure with hypoxia; J96.02 Acute respiratory failure with hypercapnia; I13.0 Hypertensive heart and chronic kidney disease with heart failure and stage 1 through stage 4 chronic kidney disease, or unspecified chronic kidney disease; I50.32 Chronic diastolic (congestive) heart failure; F10.131 Alcohol abuse with withdrawal delirium; N17.9 Acute kidney failure, unspecified; J44.9 Chronic obstructive pulmonary disease, unspecified; E03.9 Hypothyroidism, unspecified; I65.29 Occlusion and stenosis of unspecified carotid artery; F17.290 Nicotine dependence, other tobacco product, uncomplicated; Z68.32 Body mass index [BMI] 32.0-32.9, adult; I71.43 Infrarenal abdominal aortic aneurysm, without rupture; W18.30XA Fall on same level, unspecified, initial encounter; S82.401A Unspecified fracture of shaft of right fibula, initial encounter for closed fracture; D63.1 Anemia in chronic kidney disease; N18.30 Chronic kidney disease, stage 3 unspecified; E87.6 Hypokalemia; E66.9 Obesity, unspecified; Y92.090 Kitchen in other non-institutional residence as the place of occurrence of the external cause; Z88.6 Allergy status to analgesic agent; Z71.3 Dietary counseling and surveillance; Z87.890 Personal history of sex reassignment; Z79.899 Other long term (current) drug therapy; Z90.49 Acquired absence of other specified parts of digestive tract; Z98.890 Other specified postprocedural states; Z71.41 Alcohol abuse counseling and surveillance of alcoholic; Z87.11 Personal history of peptic ulcer disease; F32.A Depression, unspecified
CPT/HCPCS: 27818; 36415; 36416; 70450; 71045; 71275; 74177; 80048; 80053; 80076; 80307; 81001; 82248; 82805; 83690; 83735; 83880; 84100; 84484; 85025; 85379; 87428; 93005; 94640; 96365; 96375; 99152; C1713; J0360; J1100; J1630; J1644; J1885; J1940; J2060; J2270; J2405; J2560; J2704; J2919; J3010; J3411; J3475; J3480; J7030; J7644; Q0162; Q9967